=== PATIENT | female | born 1975 | race African-American/Black ===

== ENCOUNTER → 2017-08-10 15:44 | Outpatient (REF) | payer BC, SELFPAY ==
--- NOTE | 2017-08-10 16:03 | XR_ITS ---
EXAM: XR lumbar spine 2-3V HISTORY: ITS.REASON: low back pain ORDERING PHYSICIAN: London Dotson PATIENT AGE: 42 years COMPARISON: None FINDINGS: Normal alignment. No fracture or dislocation. No lytic or blastic change. There is degenerative disc disease at L5-S1. Small endplate osteophytes are present at L4 and L5. Facet arthritic changes are present at L5-S1 IMPRESSION: Lumbar spondylosis with degenerative changes as described above. No acute finding
[2017-08-10 16:10] LABS: Basophils % 0.5 % (0.1-2.0); Eosinophils # 0.3 K/mm3 (0.0-0.4); Eosinophils % 3.4 % (0.1-12.0); Hematocrit 42.9 % (37.0-47.0); Lymphocytes # 3.1 K/mm3 (0.7-4.5); Lymphocytes % 41.9 K/mm3 (10-50); Mean Corpuscular HGB Conc 32.5 g/dL (31.8-35.4); Mean Corpuscular Volume 86.1 fl (81-99); Mean Platelet Volume 7.8 fl (7.4-10.4); Monocytes # 0.3 K/mm3 (0.1-1.0); Monocytes % 3.5 % (1.7-9.3); Neutrophils # 3.8 K/mm3 (1.8-7.8); Neutrophils % 50.6 % (37.0-80.0); Platelet Count 341 K/mm3 (142-424); Red Blood Count 4.99 M/mm3 (4.20-5.40); Red Cell Distribution Width 14.6 % (11.5-17.5); White Blood Count 7.4 K/mm3 (4.8-10.8)
[2017-08-10 18:32] LABS: Alanine Aminotransferase 22 U/L (12-78); Alkaline Phosphatase 150 U/L (46-116); Anion Gap 14.4 mEq/L (5-15); Aspartate Amino Transferase 16 U/L (15-37); Bilirubin,Total 0.3 mg/dL (0.2-1.0); Blood Urea Nitrogen 9 mg/dL (7-18); Calcium 10.4 mg/dL (8.5-10.1); Carbon Dioxide 27 mmol/L (21.0-32.0); Chloride 108 mmol/L (98-107); Cholesterol 177 mg/dL (140-200); Estimated Glomerular Filt Rate 79 ml/min (>60); GFR (African American) 95 ML/MIN (>60); Globulin 3.9 gm/dl (1.3-3.2); Glucose 95 mg/dL (74-106); HDL Cholesterol 60 mg/dL (29-89); LDL Cholesterol 101 mg/dL (0-130); Potassium 4.4 mmoL/L (3.5-5.1); Sodium 145 mmol/L (136-145); T4 (Thyroxine) 8.1 ug/dl (4.7-13.3); Thyroid Stimulating Hormone 2.22 uIU/ml (0.358-3.740); Total Protein,Serum 7.9 gm/dL (6.4-8.2); Triglycerides 79 mg/dL (30-200); VLDL Cholesterol 16 mg/dL (0-40)
[2017-08-10 21:38] LABS: Amphetamine/Metha Screen,Urine Negative ng/mL (<1000); Barbiturates Screen,Urine Negative ng/mL (<200); Benzodiazepines Screen,Urine Negative ng/mL (200); Cannabinoid Screen,Urine Negative ng/mL (<50); Cocaine Screen,Urine Negative ng/g (<300); Methadone Screen,Urine Negative ng/mL (<300); Opiate Screen,Urine Negative ng/mL (<300); Phencyclidine Screen,Urine Negative ng/mL (<25)
[2017-08-12 08:29] LABS: Hep A Ab, IgM Negative (Negative); Hepatitis B Core Antibody IgM Negative (Negative); Hepatitis B Surface Antigen Negative (Negative)
[2017-08-12 12:35] LABS: Hepatitis C Antibody <0.1 s/co ratio (0.0-0.9); Vitamin D 25 Hydroxy 35.3 ng/mL (30.0-100.0)
== END ==
LOC: LAB 15:44
PROVIDERS: PCP Nurse Practitioner Family; Visit Provider Nurse Practitioner Family
DX: R53.83 Other fatigue (principal); F41.9 Anxiety disorder, unspecified; Z79.899 Other long term (current) drug therapy
CPT/HCPCS: 36415; 72100; 80053; 80061; 80074; 80305; 82652; 84436; 84443; 85025

== ENCOUNTER → 2017-10-21 13:57 | Outpatient (CLI) | payer BC, SELFPAY ==
--- NOTE | 2017-10-21 14:01 | XR_ITS ---
EXAM: XR cervical spine 4V HISTORY: ITS.REASON: Neck pain ORDERING PHYSICIAN: KISHORE Navarro PATIENT AGE: 42 years FINDINGS: Straightening of cervical lordosis which may be due to patient positioning or muscle spasm. There is mild degenerative disc disease at C5-C6 C6-C7 and C7-T1 with small endplate osteophytes at C5-6 and C6-C7. No foraminal narrowing. No evidence of cervical ribs. No lytic or blastic change. No fracture or dislocation. Carotid calcifications are present on the left. IMPRESSION: Cervical spondylosis with degenerative disc disease and straightening of cervical lordosis with small endplate osteophytes
--- NOTE | 2017-10-21 14:01 | XR_ITS ---
XR knee RT 4V HISTORY: Knee pain ITS.REASON: Bilateral knee pain ORDERING PHYSICIAN: KISHORE Navarro PATIENT AGE: 42 years FINDINGS: Mild osteoarthritic changes involve all 3 compartments with decrease in the joint space. There is mild osteophyte formation along the lateral compartment and at the posterior patella. Excessively center of ossification noted at the tibial tuberosity. No fracture or dislocation. No lytic or blastic change. IMPRESSION: Mild osteoarthritis of the right knee
--- NOTE | 2017-10-21 14:01 | XR_ITS ---
EXAM: XR lumbar spine min 4V HISTORY: ITS.REASON: Low back pain ORDERING PHYSICIAN: KISHORE Navarro PATIENT AGE: 42 years COMPARISON: 08/10/2017 FINDINGS: Normal alignment. No fracture or dislocation. Small osteophytes once again noted of the endplates. Mild degenerative disc disease L4-L5 with mild facet arthritic changes at L5-S1. IMPRESSION: Overall no change lumbar spondylosis mild degenerative disc disease and facet arthritic change at L5-S1 and small endplate osteophytes
--- NOTE | 2017-10-21 14:01 | XR_ITS ---
XR knee LT 4V HISTORY: Left knee pain ITS.REASON: Bilateral knee pain ORDERING PHYSICIAN: KISHORE Navarro PATIENT AGE: 42 years FINDINGS: There is slight decrease in the knee joint space medially and laterally and at the lateral aspect of the patellofemoral joint. No fracture or dislocation. No lytic or blastic changes. IMPRESSION: Slight decrease in the knee joint spaces suggesting minimal osteoarthritis.
--- NOTE | 2017-10-21 14:01 | XR_ITS ---
XR knee standing BI HISTORY: ITS.REASON: Bilateral knee pain ORDERING PHYSICIAN: KISHORE Navarro PATIENT AGE: 42 years FINDINGS: Standing views of both knees show moderate decrease in the joint space medially on the left as well as mild decrease in both the medial and lateral joint space on the right. IMPRESSION: 1. Mild osteoarthritis of the right knee and minimal osteoarthritic change of the medial compartment of the left knee
== END ==
PROVIDERS: PCP Physician Assistant; Visit Provider Physician Assistant
DX: M54.5 Low back pain (principal); M54.2 Cervicalgia; M25.561 Pain in right knee; M25.562 Pain in left knee
CPT/HCPCS: 72050; 72110; 73564; 73565

== ENCOUNTER 2017-10-28 15:04 | Outpatient (RCR) | payer BC, SELFPAY ==
--- NOTE | 2017-10-28 16:21 | HMH.PTOPEV ---
Rehab Outpatient Evaluation Rehab OP Evaluation Start: 10/28/17 15:39 Freq: Status: Active Protocol: Document 10/28/17 15:39 BILLJOSÉ MIGUEL (Rec: 10/28/17 15:52 DWAYNE [id number]) Electronically Signed By Joe Duarte, PT 10/28/17 15:39 Outpatient Therapy Subjective History Subjective History Patient is a 42 female presenting to outpatient PT with reports of chronic cervical spine and lumbar spine pain starting approximately 10 years ago. Patient also reports chronic bilateral shoulder and knee pain. Patient reports that she was diagnosed with firbromyalgia in 2006. Hx of bilateral knee pain/ meniscectomy. Most recent diagnostics indicate cervial/ lumbar spondylosis/OA. Chief Complaint Pain Spasms Stiff Symptom Type Ache Sharp Symptoms Relieved By Rest/Positioning Heat OTC Meds Prescription Meds Symptoms Aggravated By Sitting Standing Bending/Stooping Physical Activity Walking Lifting Prior Functional Limitations None Current Functional Limitations Reaching Lifting Housework Sleeping Standing Sitting Squatting Recreation Activity Walking Stairs Bending/Stooping Symptom Description Constant but Variable Level of pain today (0-10) 5 Pain scale - at its best (0-10) 9 Pain scale - at its worst (0-10) 5 Cervical Eval Palpation Cervical Muscles R Cervical Paraspinal L Cervical Paraspinal R Upper Trapezius L Upper Trapezius Cervical/Thoracic Palpation Findings Tenderness Flexibility Deficits Upper Trapezius Muscle Length (R) Moderate Tightness (L) Moderat
== END 2017-10-28 15:05 | disposition home or self-care (01) ==
LOC: PT 15:04
PROVIDERS: PCP Physician Assistant; Visit Provider Physician Assistant
DX: M54.2 Cervicalgia (principal); M54.9 Dorsalgia, unspecified
CPT/HCPCS: 97163

== ENCOUNTER → 2017-11-11 09:59 | Outpatient (CLI) | payer BC, SELFPAY ==
--- NOTE | 2017-11-11 10:01 | FL_ITS ---
EXAM: Barium swallow/esophagram. INDICATION: GE reflux, heartburn ITS.REASON: reflux ORDERING PHYSICIAN: Haim Pagan MD PATIENT AGE: 42 years TECHNIQUE: In the upright position the patient was observed to swallow barium in both the AP and lateral view. The cervical esophagus was examined under fluoroscopy with images obtained. The patient was then placed prone in the right anterior oblique position and was observed to swallow barium with Valsalva technique . FLUOROSCOPY TIME: 1 minute and 6 seconds FINDINGS: There was no evidence of aspiration. There was normal peristalsis. No filling defects or mucosal abnormalities. No masses or strictures. There is a small sliding hiatal hernia. No erosive lesions are evident. IMPRESSION: Small hiatal hernia otherwise negative barium swallow
== END ==
PROVIDERS: PCP Physician Assistant; Visit Provider Surgery
DX: K21.9 Gastro-esophageal reflux disease without esophagitis (principal)
CPT/HCPCS: 74220

== ENCOUNTER → 2017-11-23 12:54 | Outpatient (CLI) | payer BC, SELFPAY ==
--- NOTE | 2017-11-23 12:55 | MR_ITS ---
MR knee RT wo con HISTORY: Right knee pain and swelling with limited range of motion ITS.REASON: meniscal injury ORDERING PHYSICIAN: Orestes Castaneda MD PATIENT AGE: 42 years Comparison: 10/21/2017 TECHNIQUE: Standard multiplanar multiecho sequences are performed without contrast. FINDINGS: Cruciate ligaments, collateral ligaments, patellar tendon, and quadriceps tendon have an unremarkable appearance. The medial meniscus has an unremarkable appearance as does the posterior horn of the lateral meniscus. The anterior horn of the lateral meniscus has an abnormal appearance smaller than expected flattened appearance and may be related to chronic maceration/tear versus prior surgery. The patellar cartilage is preserved. There is a small knee joint effusion in the suprapatellar region laterally. There are mild osteoarthritic changes of the patellofemoral joint with spurring of the patella superiorly and laterally. Osteoarthritic changes also involve the medial lateral compartment with decrease in joint space and osteophyte formation. This is more prominent involving the lateral compartment. Small amount of pretibial edema is noted anterior to the patellar tendon and proximal tibia. No fracture or dislocation. IMPRESSION: 1. Abnormal appearance of the anterior horn of the lateral meniscus and may be related to chronic tear/maceration or postsurgical change. 2. Osteoarthritic changes involving all 3 compartments greatest at the lateral compartment. 3. Small knee joint effusion
== END ==
PROVIDERS: PCP Physician Assistant; Visit Provider Orthopaedic Surgery
DX: S83.241A Other tear of medial meniscus, current injury, right knee, initial encounter (principal)
CPT/HCPCS: 73721

== ENCOUNTER → 2017-11-25 10:34 | Outpatient (CLI) | payer BC, SELFPAY | PROVIDERS: Visit Provider Podiatrist | DX: B35.1 Tinea unguium (principal) | CPT/HCPCS: 87102; 87206; 87220 ==

== ENCOUNTER → 2018-07-07 13:32 | Outpatient (CLI) | payer BC, SELFPAY ==
--- NOTE | 2018-07-07 13:36 | XR_ITS ---
XR shoulder RT min 2V HISTORY: ITS.REASON: Bilateral shoulder pain ORDERING PHYSICIAN: KISHORE Navarro PATIENT AGE: 42 years Comparison: None FINDINGS: No fracture or dislocation. No lytic or blastic change. There is normal mineralization. There are mild hypertrophic changes of the acromioclavicular joint superiorly. No subacromial stenosis evident. Minimal hypertrophy of the greater tuberosity of the humeral head with faint lucency at the base of the greater tuberosity. These findings be seen with rotator cuff disease. May be better evaluated with MRI if clinically warranted. IMPRESSION: 1. No acute fracture. 2. Mild hypertrophic change of the AC joint. 3. Minimal hypertrophy of the greater tuberosity was small subarticular cyst at the base of the greater tuberosity
--- NOTE | 2018-07-07 13:36 | XR_ITS ---
EXAM: XR cervical spine 4V HISTORY: ITS.REASON: bilateral shoulder pain ORDERING PHYSICIAN: KISHORE Navarro PATIENT AGE: 42 years COMPARISON: None FINDINGS: There is straightening of the cervical lordosis. This is nonspecific and could be seen with muscle spasm. There is 3 mm anterolisthesis of C3 on C4. Increase in the disc space at C5-C6 C6-C7 and C7-T1. There are H or osteophyte at C5-6 and C6-C7. No fracture or dislocation. No lytic or blastic change. The foramina are widely patent. No cervical rib. Carotid artery calcifications are present on the left. IMPRESSION: 1. Cervical spondylosis as described above with degenerative disc disease and straightening of the cervical lordosis. 2. Left-sided carotid artery calcification
--- NOTE | 2018-07-07 13:36 | XR_ITS ---
XR shoulder LT min 2V HISTORY: ITS.REASON: Bilateral shoulder pain ORDERING PHYSICIAN: KISHORE Navarro PATIENT AGE: 42 years Comparison: None FINDINGS: No fracture or dislocation. No lytic or blastic change. There is normal mineralization. Mild bony spurring is present at the acromioclavicular joint superiorly. There is some increased density in the left perihilar region and left lower lobe incompletely imaged. Chest x-ray may be of further value. IMPRESSION: 1. Mild osteoarthritic change of the acromioclavicular joint without subacromial stenosis. 2. Increased density left perihilar region and left lower lobe nonspecific and incompletely imaged
== END ==
PROVIDERS: PCP Physician Assistant; Visit Provider Physician Assistant
DX: M25.511 Pain in right shoulder (principal); M25.512 Pain in left shoulder
CPT/HCPCS: 72050; 73030

== ENCOUNTER → 2018-07-21 14:58 | Outpatient (CLI) | payer BC, SELFPAY ==
--- NOTE | 2018-07-21 15:00 | CI_ITS ---
Cerebrovascular Exam Indications: 785.9 Bruit. IMPRESSIONS 1. The bilateral vertebral arteries are patent with normal antegrade flow. 2. Study suggests less than 20% stenosis involving the right internal carotid artery and the left internal carotid artery. History: Risk factors: Current tobacco use. Carotid duplex study. Complete study and Doppler flow study including spectral analysis, color and escalante scale imaging. Height: Height: 160cm. Height: 63in. Weight: Weight: 109.3kg. Weight: 240.5lb. Body mass index: BMI: 42.7kg/m^2. Body surface area: BSA: 2.27m^2. Location: Vascular laboratory. Patient status: Outpatient. Tables: Arterial flow: + +--------+--------+ Location V sys V ed + +--------+--------+ Right CCA - proximal 123cm/s 24.4cm/s + +--------+--------+ Right CCA - distal 74.2cm/s 27cm/s + +--------+--------+ Right ECA 130cm/s -------- + +--------+--------+ Right ICA - proximal 86.1cm/s 29.5cm/s + +--------+--------+ Right ICA - mid 106cm/s 45.9cm/s + +--------+--------+ Right ICA - distal 109cm/s 59.1cm/s + +--------+--------+ Right vertebral 57.8cm/s 40.9cm/s + +--------+--------+ Left CCA - proximal 103cm/s 28.9cm/s + +--------+--------+ Left CCA - distal 73.5cm/s 29.5cm/s + +--------+--------+ Left ECA 71cm/s -------- + +--------+--------+ Left ICA - proximal 118cm/s 48.4cm/s + +--------+--------+ Left ICA - mid 94.4cm/s 42.9cm/s + +--------+--------+ Left ICA - distal 86.8cm/s 37cm/s + +--------+--------+ Left vertebral 57.8cm/s -------- + +--------+--------+ Velocity ratios: + + + + + + Right, V sys Right, V ed Left, V sys Left, V ed + + + + + + Max ICA/dist CCA 1.47 2.19 1.61 1.64 + + + + + + (Report amended ) Electronically signed by: Ferdinand Olvera [id number]
--- NOTE | 2018-07-21 15:04 | XR_ITS ---
XR chest 2V HISTORY: Follow-up abnormal shoulder x-ray ITS.REASON: lll density seen on shoulder x-ray ORDERING PHYSICIAN: KISHORE Navarro PATIENT AGE: 42 years COMPARISON: 07/07/2018 FINDINGS: The cardiomediastinal silhouette and pulmonary vascularity are within normal limits. The lungs are clear without infiltrates, suspicious nodules, or pleural effusions. There are some minimal fibrotic or atelectatic changes in the lower lobes. Previously noted density in the left midlung is no longer apparent and could be due to an area of atelectasis or infiltrate. No acute bony abnormalities. IMPRESSION: Minimal atelectatic or fibrotic changes in the lung bases otherwise negative
== END ==
PROVIDERS: PCP Physician Assistant; Visit Provider Physician Assistant
DX: I65.22 Occlusion and stenosis of left carotid artery (principal); R53.83 Other fatigue
CPT/HCPCS: 71046; 93880

== ENCOUNTER → 2018-08-04 14:14 | Outpatient (CLI) | payer BC, SELFPAY ==
--- NOTE | 2018-08-04 14:15 | MR_ITS ---
MR cervical spine wo con, MR 3-d myelogram/MRCP HISTORY: Severe neck pain, degenerative disc disease. ITS.REASON: ddd ORDERING PHYSICIAN: KISHORE Navarro PATIENT AGE: 43 years Comparison: X-Ray 07/21/18 TECHNIQUE: Standard multiplanar multiecho sequences are performed without contrast. 3-D MIP and myelographic images are also rendered and reviewed FINDINGS: The craniocervical junction has an unremarkable appearance. There is straightening of the cervical lordosis which could be due to patient positioning or muscle spasm. C2-C3: Unremarkable. C3-C4: Unremarkable. C4-C5: Unremarkable. C5-C6: Degenerative disc disease with minimal bulging disc slightly eccentric toward the left. There is mild narrowing of the canal at 10 mm but no cord impingement. There are anterior osteophytes at this level C6-C7: Degenerative disc disease with mild concentric bulging disc. Small anterior osteophytes noted C7-T1: Unremarkable No herniated disc evident. IMPRESSION: 1. Mild degenerative disc disease with minimal bulging disc at C5-C6 and C6-C7 with mild narrowing of the canal at C5-C6. 2. No disc herniation or cord impingement evident. 3. Straightening of cervical lordosis which could be due to patient positioning or muscle spasm
== END ==
PROVIDERS: PCP Physician Assistant; Visit Provider Physician Assistant
DX: M47.812 Spondylosis without myelopathy or radiculopathy, cervical region (principal); M50.30 Other cervical disc degeneration, unspecified cervical region
CPT/HCPCS: 72141; 76376

== ENCOUNTER → 2018-09-14 16:44 | Outpatient (CLI) | payer BC, SELFPAY ==
[2018-09-14 18:25] LABS: Amphetamine/Metha Screen,Urine Negative ng/mL (<1000); Barbiturates Screen,Urine Negative ng/mL (<200); Benzodiazepines Screen,Urine Negative ng/mL (<200); Cannabinoid Screen,Urine Negative ng/mL (<50); Cocaine Screen,Urine Negative ng/mL (<300); Methadone Screen,Urine Negative ng/mL (<300); Opiate Screen,Urine Positive ng/mL (<300); Phencyclidine Screen,Urine Positive ng/mL (<25)
== END ==
PROVIDERS: Visit Provider Physician Assistant
DX: F41.9 Anxiety disorder, unspecified (principal)
CPT/HCPCS: 80305

== ENCOUNTER 2018-09-22 16:30 | Outpatient (RCR) | payer BC, SELFPAY | END 2018-09-22 16:35 | disposition home or self-care (01) | LOC: PT 16:30 | PROVIDERS: Visit Provider Anesthesiology Pain Medicine | DX: M47.816 Spondylosis without myelopathy or radiculopathy, lumbar region (principal); G89.4 Chronic pain syndrome | CPT/HCPCS: 97010; 97014; 97110; 97163; G0283 ==

== ENCOUNTER → 2018-12-01 11:35 | Outpatient (CLI) | payer BC, SELFPAY ==
--- NOTE | 2018-12-01 11:50 | XR_ITS ---
XR chest 2V HISTORY: Smoker, tobacco use ITS.REASON: 2 views ORDERING PHYSICIAN: Kiesha Brown MD PATIENT AGE: 43 years COMPARISON: 07/21/2018 FINDINGS: The cardiomediastinal silhouette and pulmonary vascularity are within normal limits. There are mild atelectatic or fibrotic changes in the left lung base. Remaining lungs are clear.. No acute bony abnormalities. IMPRESSION: Atelectatic or fibrotic change in the lingula otherwise negative
[2018-12-01 12:04] LABS: Basophils % 0.5 % (0.1-2.0); Eosinophils # 0.2 K/mm3 (0.0-0.4); Eosinophils % 3.3 % (0.1-12.0); Hematocrit 41.6 % (37.0-47.0); Hemoglobin 13.7 g/dL (12.2-16.2); Lymphocytes # 2.8 K/mm3 (0.7-4.5); Lymphocytes % 39.4 % (10-50); Mean Corpuscular HGB Conc 32.9 g/dL (31.8-35.4); Mean Corpuscular Hemoglobin 28.1 pg (27.0-31.2); Mean Corpuscular Volume 85.5 fl (81-99); Mean Platelet Volume 7.1 fl (7.4-10.4); Monocytes # 0.2 K/mm3 (0.1-1.0); Monocytes % 2.2 % (1.7-9.3); Neutrophils # 3.9 K/mm3 (1.8-7.8); Neutrophils % 54.6 % (37.0-80.0); Platelet Count 458 K/mm3 (142-424); Red Blood Count 4.86 M/mm3 (4.20-5.40); Red Cell Distribution Width 16.2 % (11.5-17.5); White Blood Count 7.2 K/mm3 (4.8-10.8)
[2018-12-01 12:10] LABS: Urine Pregnancy, HCG Qual. Negative (Negative)
[2018-12-01 12:29] LABS: Alanine Aminotransferase 30 U/L (12-78); Albumin Level 3.9 gm/dL (3.4-5.0); Albumin/Globulin Ratio 0.9 (1.1-1.8); Alkaline Phosphatase 150 U/L (46-116); Anion Gap 13.6 mEq/L (5-15); Aspartate Amino Transferase 19 U/L (15-37); Bilirubin,Total 0.4 mg/dL (0.2-1.0); Blood Urea Nitrogen 20 mg/dL (7-18); Calcium 11.1 mg/dL (8.5-10.1); Carbon Dioxide 24 mmol/L (21.0-32.0); Chloride 104 mmol/L (98-107); Creatinine,Serum 1.19 mg/dL (0.55-1.02); Estimated Glomerular Filt Rate 50 ml/min (>60); GFR (African American) 60 ML/MIN (>60); Globulin 4.2 gm/dl (1.3-3.2); Potassium 4.6 mmoL/L (3.5-5.1); Sodium 137 mmol/L (136-145); Total Protein,Serum 8.1 gm/dL (6.4-8.2)
[2018-12-01 12:44] LABS: Glucose 103 mg/dL (74-106)
== END ==
PROVIDERS: Visit Provider Orthopaedic Surgery
DX: Z01.818 Encounter for other preprocedural examination (principal)
CPT/HCPCS: 36415; 71046; 80053; 81025; 85025

== ENCOUNTER → 2018-12-09 15:06 | Outpatient (CLI) | payer BC, SELFPAY ==
--- NOTE | 2018-12-09 15:08 | XR_ITS ---
XR wrist RT min 3V HISTORY follow-up fracture ITS.REASON: 2 views ORDERING PHYSICIAN: Kiesha Brown MD PATIENT AGE: 43 years Comparison: 12/02/2018 FINDINGS: Status post ORIF distal radial fracture. Anterior bone plate remains in place with good alignment of the comminuted fracture fragments. There is an avulsion fracture of the tip of the ulnar styloid. Fracture lines are still visible. IMPRESSION: Good alignment status post ORIF distal radial fracture
== END ==
PROVIDERS: PCP Physician Assistant; Visit Provider Orthopaedic Surgery
DX: Z09 Encounter for follow-up examination after completed treatment for conditions other than malignant neoplasm (principal)
CPT/HCPCS: 73110

== ENCOUNTER → 2018-12-30 14:21 | Outpatient (CLI) | payer BC, SELFPAY ==
--- NOTE | 2018-12-30 14:27 | XR_ITS ---
XR wrist RT min 3V CLINICAL INDICATION: ITS.REASON: post op DOS 12/02 ORDERING PHYSICIAN: Kiesha Brown MD PATIENT AGE: 43 years Comparison: 12/09/2018. FINDINGS: The appearance of the radial orthopedic hardware in the appearance of the distal radial fracture site is unchanged. There is no abnormal angulation. Again seen is the avulsed ulnar styloid fracture fragment. IMPRESSION: No change.
== END ==
PROVIDERS: PCP Emergency Medicine; Visit Provider Orthopaedic Surgery
DX: S52.501A Unspecified fracture of the lower end of right radius, initial encounter for closed fracture (principal)
CPT/HCPCS: 73110

== ENCOUNTER → 2019-01-16 14:06 | Outpatient (CLI) | payer BC, SELFPAY ==
--- NOTE | 2019-01-16 14:12 | XR_ITS ---
XR wrist RT min 3V HISTORY follow-up fracture ITS.REASON: DR fracture Rt ORDERING PHYSICIAN: Kiesha Brown MD PATIENT AGE: 43 years Comparison: 12/30/2018 FINDINGS: No change status post ORIF distal radial fracture with bone plate present anteriorly with good alignment. Fracture line remains visible. No change ulnar styloid avulsion. IMPRESSION: No significant change status post ORIF distal radius
== END ==
PROVIDERS: PCP Physician Assistant; Visit Provider Orthopaedic Surgery
DX: S52.501A Unspecified fracture of the lower end of right radius, initial encounter for closed fracture (principal)
CPT/HCPCS: 73110

== ENCOUNTER 2019-02-02 15:30 | Outpatient (RCR) | payer BC, SELFPAY | END 2019-02-02 15:45 | disposition home or self-care (01) | LOC: OT 15:30 | PROVIDERS: Visit Provider Orthopaedic Surgery | DX: S52.501A Unspecified fracture of the lower end of right radius, initial encounter for closed fracture (principal) | CPT/HCPCS: 97763 ==

== ENCOUNTER → 2019-02-13 14:06 | Outpatient (CLI) | payer BC, SELFPAY ==
--- NOTE | 2019-02-13 14:08 | XR_ITS ---
XR wrist RT min 3V HISTORY follow-up surgery/ORIF ITS.REASON: s/p wrist ORIF ORDERING PHYSICIAN: Kiesha Brown MD PATIENT AGE: 43 years Comparison: 01/16/2019 FINDINGS: Status post ORIF distal radius with anterior bone plate with multiple screws stabilizing the distal radial fracture which is in good alignment. Avulsion fractures its tip of the ulnar styloid once again noted. IMPRESSION: Good alignment status post ORIF distal radius
== END ==
PROVIDERS: PCP Physician Assistant; Visit Provider Orthopaedic Surgery
DX: S52.501A Unspecified fracture of the lower end of right radius, initial encounter for closed fracture (principal)
CPT/HCPCS: 73110

== ENCOUNTER → 2019-03-17 12:42 | Outpatient (CLI) | payer BC, SELFPAY ==
--- NOTE | 2019-03-17 12:44 | XR_ITS ---
PROCEDURE: XR KNEE RT 4V CLINICAL INDICATION: knee pain COMPARISON: [id number] XR knee standing BI from 10/21/2017 [id number] XR knee LT 4V from 10/21/2017 [id number] XR knee RT 4V from 10/21/2017 FINDINGS: No fracture or dislocation. No lytic or blastic change. There is normal mineralization. Moderate osteoarthritic changes are present at the lateral compartment probably unchanged given the difference in positioning. Minimal osteoarthritic changes present at the patellofemoral joint and medial compartment. No fracture or dislocation. Ununited ossification centers present at the tibial tuberosity IMPRESSION: Osteoarthritic changes of the knee as described Dictated by: Ferdinand Olvera MD 03/17/2019 15:14 Electronically signed by Ferdinand Olvera MD in [place] 03/17/2019 15:14
--- NOTE | 2019-03-17 12:44 | XR_ITS ---
PROCEDURE: XR WRIST RT MIN 3V CLINICAL INDICATION: wrist fracture Follow-up fracture/ORIF COMPARISON: Wrist R from 11/25/2018 from 02/13/2019 FINDINGS: No change in the volar bone plate with multiple screws stabilizing the distal radial fracture with good alignment. Fracture line is still visible. Avulsion fracture at the tip of the ulnar styloid once again noted. IMPRESSION: No change status post ORIF distal radial fracture with good alignment Dictated by: Ferdniand Olvera MD 03/17/2019 15:11 Electronically signed by Ferdinand Olvera MD in [place] 03/17/2019 15:11
== END ==
PROVIDERS: PCP Physician Assistant; Visit Provider Orthopaedic Surgery
DX: M25.561 Pain in right knee (principal); S52.501A Unspecified fracture of the lower end of right radius, initial encounter for closed fracture
CPT/HCPCS: 73110; 73564

== ENCOUNTER 2019-04-27 16:30 | Outpatient (RCR) | payer BC, SELFPAY ==
--- NOTE | 2019-03-20 17:08 | HMH.PTOPEV ---
PT Outpatient Evaluation Rehab PT Outpatient Evaluation Start: 03/20/19 16:00 Freq: Status: Active Protocol: Document 03/20/19 16:32 ALONSOJUDITH (Rec: 03/20/19 17:07 LAURA [id number]) Electronically Signed By Adi Corona PT 03/20/19 16:32 Outpatient Therapy Subjective History Subjective History 43 year old female pt. is referred to PT for R knee pn due to OA. Pt. reports that pn . has been occurring for several years now but it was not that bothersome. About 2 years ago her pn. begain to get worse. Pn. is at its worst during prolonged WB activities such as walking, standing, etc. and during prolonged knee flexion. Pt. has history of Diogenes meniscal injuries. Chief Complaint Pain Symptom Type Ache,Throb,Sharp Symptoms Relieved By Rest/Positioning,Heat Symptoms Aggravated By Standing,Bending/Stooping, Physical Activity,Walking, Lifting Prior Functional Limitations None Current Functional Limitations Lifting,Housework,Driving, Standing,Squatting,Recreation Activity,Walking,Stairs, Bending/Stooping Symptom Description Constant but Variable Level of pain today (0-10) 3 Pain scale - at its best (0-10) 2 Pain scale - at its worst (0-10) 7 Hip/Knee Eval Gait Observation General Gait Pattern Observation Ataxic Gait,Decrease Weight Bear (R),Decrease Stride Lngth (R) Assistive Device Assistive Devices Straight Cane Palpation Tenderness right Knee Palpation Finding Tenderness Knee Palpation Overall Comment TTP over lateral and posterior aspect of knee MMT left Hip Flexion Strength Grade 5 Normal Hip Abduction Strength Grade 5 Normal Hip Adduction Strength Grade 5 Normal Hip Extension Strength Grade 5 Normal Hip External Rotation Strength Grade 4 Good Hip Internal Rotation Strength Grade 4 Good Knee Extension Strength Grade 5 Normal Knee Flexion Strength Grade 5 Normal right Hip Flexion Strength Grade 3+ Fair+ Hip Abduction Strength Grade 4- Good- Hip Adduction Strength Grade 4 Good Hip Extension Strength Grade 4- Good- Hip External Rotation Strength Grade 4- Good- Hip Internal Rotation Strength G
== END 2019-04-27 16:35 | disposition home or self-care (01) ==
LOC: PT 16:30
PROVIDERS: Visit Provider Orthopaedic Surgery
DX: M17.11 Unilateral primary osteoarthritis, right knee (principal)
CPT/HCPCS: 97110; 97163; 97164

== ENCOUNTER → 2019-05-15 15:18 | Outpatient (CLI) | payer BC, SELFPAY ==
--- NOTE | 2019-05-15 15:22 | XR_ITS ---
PROCEDURE: XR CHEST 2V CLINICAL HISTORY: COPD,HTN COMPARISON: CXR2V XR chest 2V from 07/21/2018 FINDINGS: The cardiomediastinal silhouette and pulmonary vascularity are within normal limits. Minimal fibrotic changes present in the left lung base. No lobar consolidation or collapse. No acute bony abnormalities. IMPRESSION: Minimal fibrotic change left lung base. No change with no acute finding Dictated by: Ferdinand Olvera MD 05/15/2019 15:58 Electronically signed by Ferdinand Olvera MD in [place] 05/15/2019 15:58
--- NOTE | 2019-05-15 16:23 | ECG_ITS ---
APPROVED REPORT Exam: Resting ECG HR:95 bpm ECG Measurements Heart Rate 95 AXES NJ 182 P 52 QRSd 80 QRS -11 QT 364 T 38 QTc 457 <Conclusion> Normal sinus rhythm Low voltage QRS Borderline ECG Electronically signed by : Moe Joyce, 05/16/2019 15:27:02
[2019-05-15 16:31] LABS: INR 0.91 (0.9-1.1); Prothrombin Time 9.5 seconds (9.4-11.8)
[2019-05-15 16:34] LABS: Urine Pregnancy, HCG Qual. Negative (Negative)
[2019-05-15 16:40] LABS: Basophils % 0.6 % (0.1-2.0); Eosinophils # 0.4 K/mm3 (0.0-0.4); Eosinophils % 6.2 % (0.1-12.0); Hematocrit 37.9 % (37.0-47.0); Lymphocytes # 2.9 K/mm3 (0.7-4.5); Lymphocytes % 44.6 % (10-50); Mean Corpuscular HGB Conc 31.7 g/dL (31.8-35.4); Mean Corpuscular Hemoglobin 28.4 pg (27.0-31.2); Mean Corpuscular Volume 89.7 fl (81-99); Mean Platelet Volume 7.9 fl (7.4-10.4); Monocytes # 0.3 K/mm3 (0.1-1.0); Monocytes % 4.8 % (1.7-9.3); Neutrophils # 2.8 K/mm3 (1.8-7.8); Neutrophils % 43.8 % (37.0-80.0); Platelet Count 412 K/mm3 (142-424); Red Blood Count 4.23 M/mm3 (4.20-5.40); Red Cell Distribution Width 15.6 % (11.5-17.5); White Blood Count 6.5 K/mm3 (4.8-10.8)
[2019-05-15 18:43] LABS: Alanine Aminotransferase 29 U/L (12-78); Albumin Level 3.7 gm/dL (3.4-5.0); Alkaline Phosphatase 134 U/L (46-116); Aspartate Amino Transferase 18 U/L (15-37); Bilirubin,Total 0.1 mg/dL (0.2-1.0); Blood Urea Nitrogen 8 mg/dL (7-18); Calcium 10.6 mg/dL (8.5-10.1); Carbon Dioxide 26 mmol/L (21.0-32.0); Chloride 106 mmol/L (98-107); Creatinine,Serum 1.11 mg/dL (0.55-1.02); Estimated Glomerular Filt Rate 54 ml/min (>60); GFR (African American) 65 ML/MIN (>60); Globulin 3.8 gm/dl (1.3-3.2); Glucose 100 mg/dL (74-106); Sodium 140 mmol/L (136-145); Total Protein,Serum 7.5 gm/dL (6.4-8.2)
== END ==
PROVIDERS: PCP Physician Assistant; Visit Provider Orthopaedic Surgery
DX: M17.11 Unilateral primary osteoarthritis, right knee (principal)
CPT/HCPCS: 36415; 71046; 80053; 81025; 85025; 85610; 87081; 93005

== ENCOUNTER → 2019-05-20 10:28 | Outpatient (CLI) | payer BC, SELFPAY | PROVIDERS: Visit Provider Orthopaedic Surgery | DX: Z01.818 Encounter for other preprocedural examination (principal); M17.11 Unilateral primary osteoarthritis, right knee | CPT/HCPCS: 36415; 86850 ==

== ENCOUNTER 2019-05-23 06:08 | Inpatient (IN) ==
--- NOTE | 2019-05-23 06:58 | Progress Note ---
[facility] Anesthesia Checklist - Patient Identification Patient Identification: Arm Band, Verbal (Name & ) - Structural Data Admitted From: Home Planned Operative Procedure/s: Right TKA Consent for Planned Operative Procedure(s) Verified: Yes Verified Documents: Surgical Consent, History and Physical - NPO Status Verified Time NPO: 23:45 - Chart Verification Results Verified: CBC, BMP - Additional verifications Patient : No Anesthesia Reactions: Yes (Wakes up angry, hx PTSD) Hx Blood Transfusions: No Blood Transfusion Reaction: No - Airway Assessment C-Spine Mobility Assessed: Yes TMJ Mobility Assessed: Yes Dentition: Edentulous - Neurological Assessment Level of Consciousness: Awake, Alert, Appropriate, Follows Commands Hx Seizures: No Numbness or tingling in extremities: Yes - Anesthesia Plan Anesthesia Risk discussed: Yes Anesthesia Plan: Verified ASA Class: III Anesthesia Type: Spinal (with right ACB) [facility] History I have reviewed the patient's past medical history: Yes Medical History: Reports:: Anxiety, Chronic Obstructive Pulmonary Disease (COPD), Depression, Gastroesophageal Reflux Disease(GERD), Hiatal Hernia, MRSA (toe) Denies:: Cancer, Diabetes Mellitus Type 1, Diabetes Mellitus Type 2, Internal Pacemaker, Seizures *Have you ever received a pneumonia vaccine?: Yes *Have you received a flu vaccine this season?: Yes Other Medical History: Reports: Arthritis, Fibromyalgia, Other. Denies: Blood Transfusion Reaction Comment:: morbid obesity, TIARA does not use CPAP Anesthesia experience/problems:: Wakes up angry Laterality Cases: Bilateral: Arthroscopy Knee Other Surgeries: Yes: Cholecystectomy, Colonoscopy, EGD, Hysterectomy-Total, Tubal Ligation, Other. No: Pacemaker Amputation: No Fractures: Yes (aisha wrist) - *Social History Educational Level: Attended Grade School Smoking Status: Current every day smoker Tobacco Type: cigarettes # Packs/Day (cigarettes): 1 Alcohol Intake: never Alcohol Intake Frequency:: other Substance Use Type: denies use *Occupational Status:: unemployed Housing: apartment Household Members: spouse *Travel in the last 8 weeks: None - Psychiatric History Pschychiatric History:: Reports:: Anxiety, Depression Family Hx:: Diabetes
--- NOTE | 2019-05-23 12:15 | Progress Note ---
[facility] Anesthesia Record Part I Intake, IV Amount: 2,000 Estimated blood loss (mL): 100 Urine output (mL): 200 Blood Pressure: 98/67 SaO2: 95 Pulse Rate: 98 Respiratory Rate: 16 Temperature: 98.2 F Patient is:: Drowsy, Stable Stable to PACU at:: 12:15
--- NOTE | 2019-05-23 12:15 | Progress Note ---
[facility] Anesthesia Record Part II Discharge Time: 12:45 Destination: Medical Surgical Department PACU nurse assessment reviewed?: Yes Patient Condition:: Good Anesthesia Complications:: None Swallowing reflex intact?: Yes Cyanosis?: No
--- NOTE | 2019-05-23 12:52 | Operative Note ---
Date of procedure: 05/23/19 Pre-op Diagnosis:: R knee DJD Post-op Diagnosis:: R knee DJD Procedure performed:: R TKA (total knee arthroplasty) Surgeon:: Kiesha Brown MD Terminal Supervisor(s):: Malia Boles CONFECTIONERY DROPS MACHINE OPERATOR:: Hung Morataya Anesthesia: MAC, regional, spinal Estimated blood loss (mL): 100 Clinical Note:: 43yo F with a history of chronic R knee pain; she underwent prior arthroscopic surgery on this knee though the procedure and year are unknown. She has received multiple steroid and SALMERON injections in the knee over the years, none of which have been effective. Under my care, she has tried the following for her knee: ice, activity modification, NSAIDs, tylenol, intra-articular steroid injection, physical therapy. She is in pain management for her back and takes [place] at baseline as well. Offloader brace was ordered by myself, but this was not covered by insurance and the cost was very high so the patient elected not to buy it. She has a history of HTN, GERD, fibromyalgia, vitamin D deficiency, PTSD, chronic back pain with sciatica; NO history of DM. She has a history of MRSA infection in her left foot. Surgical history includes b/l knee arthroscopy, hysterectomy, ORIF b/l DRF, cholecystectomy. She is and lives with her ; she does not work. Their home is one level and she feels she has good support at home; transportation is often an issue, however. She is a smoker but denies alcohol use. BMI is 42.9; weight was measured in the office today. The steroid injection she received at her last visit with me on 03/17/2019 was ineffective; she would like to discuss surgical options for her knee. The patient has exhausted conservative treatment for knee arthritis, consisting of: ice, activity modification, NSAIDs, tylenol, intra-articular steroid injection, hyaluronic acid injections, OTC bracing, and physical therapy. The pain has become so severe that it is inhibiting her ability to perform ADLs and is adversely affecting her quality of life. Monica discussed surgical options with the patient and have recommended total knee arthroplasty. We discussed at length the surgical technique and expected perioperative course, including length of hospitalization, need for postoperative physical therapy, use of anticoagulants, expected level of pain, and total length of recovery. I discussed her increased risk for infection given a history of MRSA infection and recent CSI, and overall increased risk of livan-operative complication given her increased BMI. I also explained the potential risks of surgery, including bleeding, infection, fracture, wound healing complications, need for revision surgery, continued pain post-operatively, DVT/PE, and risks of both general and regional anesthesia, including nerve damage, heart attack, stroke and even . The patient vocalized understanding of these risks and has agreed to proceed with surgery; informed consent was obtained. She obtained medical clearance from her primary care physician. Operative findings:: Larios [employer] Nephew Journey II BCS TKA size 4 femur size 3 tibia 15mm poly 29 / 7.5 patella Operative note:: The patient was identified in pre-operative holding and the R leg signed by myself with marking pen. Consent was verified with the patient and all questions were answered. Pre-operative labs were confirmed to be within acceptable limits, and MRSA nasal swab negative; Bactroban was used 5 days before surgery anyway. She was then taken to the OR and placed supine on the operative table; 1g vancomycin and 2g Ancef were infused intravenously spinal anesthesia/MAC admnistered. Once the patient was asleep, a nonsterile tourniquet was placed on the upper R thigh and the leg was prepped and draped in the usual sterile fashion for knee arthroplasty. Timeout was performed, identifying the correct patient, correct procedure, and correct site. The procedure was begun by exsanguinating the R lower extremity with an Esmarch and inflating the tourniquet to 300 mmHg. A longitudinal incision was made down the anterior aspect of the R knee centered over the patella, extending from 2 fingerbreadths superior to the patella to the tibial tubercle. Subcutaneous tissue was incised down to the patellar retinaculum and limited medial and lateral flaps were raised. Medial parapatellar arthrotomy was then made and Bovie used to perform a moderate medial release. Next, the patella was everted and the knee flexed to around 100 degrees. Fat pad was excised and both medial and lateral menisci were excised as well. The ACL and PCL were then excised sharply. The joint was exposed with Aaron retractors medially and laterally. Next the entry reamer was used to find and create the starting point for the distal femoral cutting guide. Through this entry point, the intramedullary afia component of the distal femoral cutting guide was inserted and the cutting guide pinned into place, set at 6 degrees valgus. This cutting guide was pinned into place, the intramedullary afia removed, and oscillating saw used to create distal femoral cut, removing the standard 9 mm from the distal femur. The femoral component was sized using the sizing guide and a size 4 femur found to be the most appropriate component size. A size 4 right 5-in-1 cutting block was then placed on the distal femur, set in 3 degrees of external rotation. The saw was then used to make all 5 cuts in this cutting guide and all excised bone removed from the knee. Lamina spreaders were used to check the back of the knee for excess bone and none was found. A curved osteotome was used to perform a gentle posterior capsular release. Lamina product marketing coordinator was removed and femoral trial placed on the distal femur. This was seen to fit very well both medially laterally and no notching of the anterior femoral cortex was seen. The femoral notch was then cut with both reamer and box chisel and all excess debris removed from the notch. Attention was then turned to the tibia; the femoral trial was removed and PCL retractor was inserted and used to help expose the proximal tibia. Extramedullary cutting guide was used to determine the desired level resection for the proximal tibia. The decision was made to take 3 mm off the medial plateau, and the guide was pinned in this position. Oscillating saw was used to make the proximal tibial cut, which was then removed with a flat broad osteotome. A size 3 tibial component fit the patient's natural anatomy very well, with no overhang medially or laterally. The tibial component was pinned in place, and femoral trial replaced; the knee was reduced with a 9mm polyethylene trial. This was too loose and the poly was increased until a 15mm trial gave the best fit with a well-balanced knee in both flexion and extension. With the knee remaining in extension, the patella was then cut. The decision was made to use a 7.5mm thick patellar component. Next, the patella was cut to 14mm and pegs drilled for a 29 patellar component; 29 trial patella placed. The knee was then taken through range of motion and the patella appeared to be tracking very well. With this configuration of components, a 4 femur, 3 tibia, 15 poly and 29/7.5 patella, the knee appeared to be well balanced with excellent range of motion and was able to be brought to full extension. All components were then removed from the knee, except the tibia, which was given its final prep using reamer and keel punch. After the tibia was punched, it was removed from the knee as well, and the knee was placed into flexion, retractors placed and the knee copiously irrigated with pulsatile lavage. While the knee was irrigated, cement was mixed on the back table. While cement was curing, joint cocktail was injected into the posterior portion of the knee; this was a mixture of Toradol, epinephrine, morphine and bupivacaine, and approximately 30 cc were infused into the posterior capsule and surrounding structures. The bone was then dried well with clean laps and final components were then cemented into place. The tibia was impacted into place and excess cement removed. This was followed by the femoral component and the knee placed into extension with a trial polyethylene component. The patella was cemented into place as well and secured with patellar clamp. As these components were hardening, the knee was kept in extension and gentle downward pressure placed on the thigh to keep the knee extended. During this time the knee was treated with a dilute Betadine irrigation that soaked for 3 minutes. After the cement was hardened, Betadine was suctioned from the knee, which was then irrigated. Trial poly was removed from the knee, which was placed into flexion and the tourniquet was dropped. No active bleeding was seen in the posterior aspect of the knee. The knee was irrigated once more, and final 15 mm polyethylene component placed into the knee. The knee was then reduced and placed in extension. The remainder of the joint cocktail was then infiltrated into the periarticular tissues. The knee was copiously irrigated with more pulsatile lavage and closed in a layered fashion, starting with alternating 0 Ethibond and 0 Vicryl in the capsule. The capsule was sutured tightly with the knee in around 20 to 30 degrees flexion. Subcutaneous tissue was closed in a layered fashion as well, with 2-0 Vicryl on the deeper tissues and mo on the skin. Sterile dressings were applied and the leg wrapped with webril and Fernando wrap from the toes to the upper thigh. The patient was transferred to PACU in good condition. She did very well throughout this case with no immediate complications. Tourniquet time (min): 130 Condition: stable Disposition: PACU Specimens:: none Complications:: none
--- NOTE | 2019-05-23 13:55 | Pharmacy Consult Notes ---
[facility] Pharmacy VTE Monitoring - Patient Demographics Admission date: 05/23/19 Report Date: 05/23/19 Time: 13:54 Allergies/Adverse Reactions: Patient Allergies No Known Allergies Allergy (Verified 05/15/19 14:13) Height: 1.63 m Weight: 118.473 kg - VTE Risk Was VTE Risk Assessment Performed: Yes VTE Score: 9 VTE Risk Level: Moderate Risk - Prophylaxis VTE Prophylaxis Ordered?: Yes Types of VTE Prophylaxis: IPCS Thigh High, Pharmacological Location of Applied Device: Left Leg Pharmacologic Type: Enoxaparin - VTE Diagnosis Confirmed Treatment or plan recommended: Continue Current Treatment
--- NOTE | 2019-05-23 17:42 | History & Physical Report ---
*Admission Date: 05/23/19 *Reason for consult:: s/p R TKA *History of present illness: 43yo F with a history of chronic R knee pain; she underwent prior arthroscopic surgery on this knee though the procedure and year are unknown. She has received multiple steroid and SALMERON injections in the knee over the years, none of which have been effective. Under my care, she has tried the following for her knee: ice, activity modification, NSAIDs, tylenol, intra-articular steroid injection, physical therapy. She is in pain management for her back and takes [place] at baseline as well. Offloader brace was ordered by myself, but this was not covered by insurance and the cost was very high so the patient elected not to b uy it. She has a history of HTN, GERD, fibromyalgia, vitamin D deficiency, PTSD, chronic back pain with sciatica; NO history of DM. She has a history of MRSA infection in her left foot. Surgical history includes b/l knee arthroscopy, hysterectomy, ORIF b/l DRF, cholecystectomy. She is and lives with her ; she does not work. Their home is one level and she feels she has good support at home; transportation is often an issue, however. She is a smoker but denies alcohol use. BMI is 42.9; weight was measured in the office today. The steroid injection she received at her last visit with me on 03/17/2019 was ineffective; she would like to discuss surgical options for her knee. The patient has exhausted conservative treatment for knee arthritis, consisting of: ice, activity modification, NSAIDs, tylenol, intra-articular steroid injection, hyaluronic acid injections, OTC bracing, and physical therapy. The pain has become so severe that it is inhibiting her ability to perform ADLs and is adversely affecting her quality of life. Monica discussed surgical options with the patient and have recommended total knee arthroplasty. We discussed at length the surgical technique and expected perioperative course, including length of hospitalization, need for postoperative physical therapy, use of anticoagulants, expected level of pain, and total length of recovery. I discussed her increased risk for infection given a history of MRSA infection and recent CSI, and overall increased risk of livan-operative complication given her increased BMI. I also explained the potential risks of surgery, including bleeding, infection, fracture, wound healing complications, need for revision surgery, continued pain post-operatively, DVT/PE, and risks of both general and regional anesthesia, including nerve damage, heart attack, stroke and even . The patient vocalized understanding of these risks and has agreed to proceed with surgery; informed consent was obtained. She obtained medical clearance from her primary care physician. R TKA was performed today without complication. [facility] History I have reviewed the patient's past medical history: Yes Medical History: Reports:: Anxiety, Chronic Obstructive Pulmonary Disease (COPD), Depression, Gastroesophageal Reflux Disease(GERD), Hiatal Hernia, Lung Disease, MRSA (toe) Denies:: Cancer, Diabetes Mellitus Type 1, Diabetes Mellitus Type 2, Internal Pacemaker, Seizures *Have you ever received a pneumonia vaccine?: Yes *Have you received a flu vaccine this season?: Yes Other Medical History: Reports: Arthritis, Fibromyalgia, Other. Denies: Blood Transfusion Reaction Anesthesia experience/problems:: Wakes up angry Laterality Cases: Bilateral: Arthroscopy Knee Other Surgeries: Yes: No Previous Surgery, Cholecystectomy, Colonoscopy, EGD, Hysterectomy-Total, Tubal Ligation, Other. No: Pacemaker Amputation: No Fractures: Yes (aisha wrist) - *Social History Educational Level: Attended Grade School Smoking Status: Current every day smoker Tobacco Type: cigarettes # Packs/Day (cigarettes): 1 Alcohol Intake: never Alcohol Intake Frequency:: other Substance Use Type: denies use *Occupational Status:: unemployed Housing: apartment Household Members: spouse *Travel in the last 8 weeks: None - Psychiatric History Pschychiatric History:: Reports:: Anxiety, Depression Family Hx:: Diabetes Review of Systems - Review of Systems Review of systems:: pertinent systems reviewed and negative unless documented below Meds Home Medications Medication Instructions Recorded Confirmed Type budesonide-formoterol HFA 160 1 puff INHALATION DAILY #10 g 09/14/18 05/23/19 Rx mcg-4.5 mcg/actuation aerosol inhaler Meloxicam 15 mg PO DAILY 12/02/18 05/23/19 History omeprazole 20 mg tablet,delayed 20 mg PO BID #180 tab 03/07/19 05/23/19 Rx release ranitidine 150 mg tablet 150 mg PO BID #180 tab 03/07/19 05/23/19 Rx ondansetron 8 mg disintegrating 8 mg PO Q8H PRN #30 tab 05/05/19 05/23/19 Rx tablet alprazolam 0.5 mg tablet 0.5 mg PO BID #60 tab 05/08/19 05/23/19 Rx gabapentin 600 mg tablet 600 mg PO QID #120 tab 05/08/19 05/23/19 Rx cholecalciferol (vitamin D3) 5,000 5,000 unit PO DAILY #90 cap 05/15/19 05/23/19 Rx unit capsule Albuterol Sulfate [Ventolin HFA] 1 puff IH DAILY 05/23/19 05/23/19 History Lisinopril [Lisinopril 10mg Tab] 10 mg PO DAILY 05/23/19 05/23/19 History Quetiapine Fumarate 400 mg PO HS 05/23/19 05/23/19 History Quetiapine Fumarate [Seroquel 100 mg PO HS 05/23/19 05/23/19 History 100mg tablet] Allergies Allergy/AdvReac Type Severity Reaction Status Date / Time No Known Allergies Allergy Verified 05/15/19 14:13 Exam Vital signs and Labs for Last 24 Hours: Temp Pulse Resp BP Pulse Ox 98.3 F 107 H 18 141/77 H 97 05/23/19 16:35 05/23/19 16:35 05/23/19 16:35 05/23/19 16:35 05/23/19 16:35 Laboratory Results - last 24 hr 05/23/19 06:51: Serum HCG, Qual Negative 05/23/19 06:51: Blood Type AB Positive, Antibody Screen Negative 05/23/19 07:45: Urine Color Yellow, Urine Appearance Clear, Urine pH 6.0, Ur Specific [place] >= 1.030, Urine Protein Negative, Urine Glucose (UA) Negative, Urine Ketones Negative, Urine Blood Negative, Urine Nitrate Negative, Urine Bilirubin Negative, Urine Urobilinogen 0.2, Ur Leukocyte Esterase Negative, Urine WBC Occasional I & O for Last 24 hours: Intake & Output 05/21/19 05/22/19 05/23/19 05/24/19 11:59 11:59 11:59 11:59 Intake Total 1999 Balance 1999 Weight 250 lb 261 lb 3 oz - Constitutional no acute distress - *Routine HEENT Exam Head: Present: normocephalic - *Routine Neck Exam Present: supple. Absent: tenderness - *Routine Respiratory Exam Present: accessory muscle use - *Routine Cardiovascular Exam Present: RRR - *Routine Abdominal Exam Present: soft. Absent: tenderness - *Routine Rectal Exam Comments: deferred - *Routine Exam Comments: mcfarlane to gravity with clear yellow urine - *Routine Extremities Exam Comments: patient in PACU: RLE dressings c/d/i palpable pedal pulses RLE, foot warm R calf soft, non-tender sensation/motion impaired due to presence of nerve block - *Routine Skin Exam Present: warm - *Routine Neurological Exam Present: alert, oriented X3, moving all extremities, normal tone. Absent: altered mental status Results - Labs Labs: All other labs normal. Assessment and Plan (1) Arthritis of knee, degenerative Current visit: Yes Status: Acute Category: Medical Code(s): M17.10 - Unilateral primary osteoarthritis, unspecified knee (2) Total knee replacement status Current visit: Yes Status: Acute Category: Surgical Code(s): Z96.659 - Presence of unspecified artificial knee joint - Assessment and plan all Dx Assessment and Plan for all problems:: 43yo F POD 0 s/p R TKA -- admit to med/surg floor for routine post-op care -- restart home meds, Ifeoma Pate/Garrett on consult for medical management -- pain control; oral percocet + IV dilaudid for breakthrough -- polar care device L knee for cryotherapy -- WBAT RLE, PT/OT to eval -- DVT prophy: SCDs + lovenox (to start tomorrow) -- 24hr DVT prophy -- dispo planning: anticipate d/c home with OPPT
[2019-05-24 07:35] LABS: Basophils % 0.1 % (0.1-2.0); Eosinophils % 0.2 % (0.1-12.0); Hemoglobin 9.1 g/dL (12.2-16.2); Monocytes # 0.8 K/mm3 (0.1-1.0)
[2019-05-24 07:42] LABS: Hematocrit 28.9 % (37.0-47.0); Lymphocytes # 2.1 K/mm3 (0.7-4.5); Lymphocytes % 12.9 % (10-50); Mean Corpuscular HGB Conc 31.7 g/dL (31.8-35.4); Mean Corpuscular Volume 89.3 fl (81-99); Mean Platelet Volume 8.7 fl (7.4-10.4); Monocytes % 5.1 % (1.7-9.3); Neutrophils # 13.1 K/mm3 (1.8-7.8); Neutrophils % 81.6 % (37.0-80.0); Platelet Count 301 K/mm3 (142-424); Red Blood Count 3.23 M/mm3 (4.20-5.40); White Blood Count 16.1 K/mm3 (4.8-10.8)
[2019-05-24 07:43] LABS: Anion Gap 9.1 mEq/L (5-15); Calcium 9.5 mg/dL (8.5-10.1)
[2019-05-24 10:53] LABS: Anisocytosis 1+; Lymphocytes % 18 % (10-50); Monocytes % 2 % (2-9); Neutrophils % 79 % (42-76); Total Cells Counted 100
--- OUTSIDE RECORDS SUMMARY | 2019-05-24 11:56 | External Medical Summary | Continuity of Care Document ---
:1975 Author Organization [facility] Address [address] [address] E[place] [address] Phone Care Team Providers Name Role Phone Casey Pate Primary Care Provider Casey Pate Attending Provider Kevin Attending Provider Allergies, Adverse Reactions, Alerts No known allergies. Medications Medication Status Dose Units Route Sig Qty Days Start End Instruct ions Date Date Budesonide/Form Active 1 PUFF Inhalatio Daily 11 September oterol Fumarate n 2018 1:30pm Omeprazole Active 20 MG Oral Twice a 180 March 8:28am Ranitidine Hcl Active 150 MG Oral Twice a 180 March 8:28am Ondansetron Active 8 MG Oral Q8H May 05, 2019 2:38pm Alprazolam Active 0.5 MG Oral Twice a 60 May 3:20pm Gabapentin Active 600 MG Oral Four 120 May day 3:20pm Cholecalciferol Active 5000 UNIT Oral Daily May (Vitamin D3) 2018 1:28pm Meloxicam Active 15 MG Oral Daily December 02, 2018 6:44am Albuterol Active 1 PUFF INHALATIO Daily May IN CALL 1 PUFF Sulfate N , BY MOUTH ONC E 2018 DAILY FOR 6:27am BREATHING PROBLEMS Quetiapine Active 400 MG Oral At May bedtime ly 2018 6:27am Lisinopril Active 10 MG Oral Daily May 23, 2019 1:08pm Quetiapine Active 100 MG Oral At May bedtime ly 2018 1:12pm Problems Active Problems Medical Problem Onset Date Status Lumbar degenerative disc disease Active Lumbar disc disease with Active radiculopathy Fracture of wrist Active Anxiety Active Fibromyalgia Active Arthritis of knee, degenerative Active Lumbar degenerative disc disease Active Total knee replacement status Active Neck pain Active GERD (gastroesophageal reflux Active disease) Shoulder pain, bilateral Active Vitamin D deficiency Active Procedures Procedure Date Performed Status XR chest 2V May 15, 2019 completed ECG initial Isiah May 15, 2019 completed MRSA Culture May 15, 2019 completed XR knee RT 2V May 23, 2019 completed Total Knee Arthroplasty (Right) May 23, 2019 8:16am c ompleted May 23, 2019 7:30am completed May 23, 2019 7:30am completed XR knee RT 4V March 17, 2019 completed XR wrist RT min 3V March 17, 2019 completed Relevant Diagnostic Tests and/or Laboratory Data Laboratory Results Test Date/Time Result Interpretation Reference Result Perfo rming Range Comment Site White Blood May 6.5 K/mm3 4.8-10.8 [facility], [address] [place] [address] 36 E Count 2018 Lindsey CHEN 24246 3:44pm White Blood May 16.1 K/mm3 4.8-10.8 [facility], [address] [place] [address] 36 E Count 2018 Lindsey CHEN 46804 7:20am Red Blood Count May 4.23 M/mm3 4.20-5.40 [facility], [address] [place] [address] 36 E 2018 Lindsey CHEN 69768 3:44pm Red Blood Count May 3.23 M/mm3 4.20-5.40 [facility], [address] [place] [address] 36 E 2018 Lindsey CHEN 71944 7:20am Hemoglobin May 12.0 g/dL 12.2-16.[address] 36 E 2018 Lindsey CHEN [address]90 3:44pm Hemoglobin May 9.1 g/dL 12.2-16.2 [facility], [address] [place] [address] 36 E 2018 Lindsey CHEN 53347 7:20am Hematocrit November 37.9 % 37.0-47.0 [facility], [address] [place] [address] E 2018 [place] [address] 3:44pm Hematocrit November 28.9 % 37.0-47.0 [facility], [address] [place] [address] E 2018 Lindsey [place] [address]483 7:20am Mean November 89.7 fl 81-99 [facility], [address] [place] [address] E Corpuscular 2018 Michelle michael [place] [address] Volume 3:44pm Mean November 89.3 fl 81-99 [facility], [address] [place] [address] E Corpuscular 2018 Michelle michael CHEN 77400 Volume 7:20am Mean May 28.4 pg 27.0-31.2 [facility], [address] [place] [address] E Corpuscular 2018 Michelle michael G[place] [address]87 Hemoglobin 3:44pm Mean May 28.3 pg 27.0-31.2 [facility], [address] [place] [address] E Corpuscular 2018 Michelle michael CHEN 17756 Hemoglobin 7:20am Mean May 31.7 g/dL 31.8-35.4 [facility], [address] [place] [address] E Corpuscular 2018 Michelle michael G[place] 8[address]60 Hemoglobin 3:44pm Concent Mean November 31.7 g/dL 31.8-35.4 [facility], [address] [place] [address] E Corpuscular 2018 Michelle michael CHEN 77461 Hemoglobin 7:20am Concent Red Cell November 15.6 % 11.5-17.5 [facility], [address] [place] [address] E Distribution 2018 [place] núñez [place] [address] Width 3:44pm Red Cell May 16.0 % 11.5-17.5 [facility], [address] [place] [address] E Distribution 2018 Denisse CHEN 79863 Width 7:20am Platelet Count May 412 K/mm3 142-424 [facility], [address] [place] [address] E 2018 Lindsey CHEN 06894 3:44pm Platelet Count May 301 K/mm3 142-424 [facility], [address] [place] [address] 36 E 2018 [place] [address] 7:20am Mean Platelet May 7.9 fl 7.4-10.4 [facility], [address] [place] [address] E Volume 2018 [place] [address] 3:44pm Mean Platelet May 8.7 fl 7.4-10.4 [facility], [address] [place] [address] E Volume 2018 [place] [address] 7:20am Neutrophils (%) May 43.8 % 37.0-80.0 [facility], [address] [place] [address] 36 E (Auto) 2018 [place] [address] 3:44pm Neutrophils (%) May 81.6 % 37.0-80.0 [facility], [address] [place] [address] 36 E (Auto) 2018 [place] [address] 7:20am Lymphocytes (%) May 44.6 % 10-50 [facility], [address] [place] [address] E (Auto) 2018 [place] [address] 3:44pm Lymphocytes (%) May 12.9 % 10-50 [facility], [address] [place] [address] 36 E (Auto) 2018 [place] [address] 7:20am Monocytes (%) May 4.8 % 1.7-9.3 [facility], [address] [place] [address] 36 E (Auto) 2018 [place] [address] 3:44pm Monocytes (%) May 5.1 % 1.7-9.3 [facility], [address] [place] [address] 36 E (Auto) 2018 [place] [address] 7:20am Eosinophils (%) May 6.2 % 0.1-12.0 [facility], [address] [place] [address] 36 E (Auto) 2018 [place] [address] 3:44pm Eosinophils (%) May 0.2 % 0.1-12.0 [facility], [address] [place] [address] 36 E (Auto) 2018 [place] [address] 7:20am Basophils (%) May 0.6 % 0.1-2.0 [facility], [address] [place] [address] 36 E (Auto) 2018 [place] [address] 3:44pm Basophils (%) May 0.1 % 0.1-2.0 [facility], [address] [place] [address] 36 E (Auto) 2018 [place] [address] 7:20am Neutrophils # May 2.8 K/mm3 1.8-7.8 [facility], [address] [place] [address] 36 E (Auto) 2018 [place] 31 3:44pm Neutrophils # May 13.1 K/mm3 1.8-7.8 [facility], [address] [place] [address] 36 E (Auto) 2018 [place] [address] 7:20am Lymphocytes # May 2.9 K/mm3 0.7-4.5 [facility], [address] [place] [address] E (Auto) 2018 [place] [address] 3:44pm Lymphocytes # May 2.1 K/mm3 0.7-4.5 [facility], [address] [place] [address] E (Auto) 2018 [place] [address] 7:20am Monocytes # May 0.3 K/mm3 0.1-1.0 [facility], [address] [place] [address] 36 E (Auto) 2018 [place] [address] 3:44pm Monocytes # May 0.8 K/mm3 0.1-1.0 [facility], [address] [place] [address] 36 E (Auto) 2018 [place] [address] 7:20am Eosinophils # May 0.4 K/mm3 0.0-0.4 [facility], [address] [place] [address] 36 E (Auto) 2018 [place] [address] 3:44pm Eosinophils # May 0.0 K/mm3 0.0-0.4 [facility], [address] [place] [address] 36 E (Auto) 2018 [place] [address] 7:20am Basophils # May 0.0 K/mm3 0-0.2 [facility], [address] [place] [address] 36 E (Auto) 2018 [place] [address] 3:44pm Basophils # May 0.0 K/mm3 0-0.2 [facility], [address] [place] [address] E (Auto) 2018 [place] [address] 7:20am Differential November 100 [facility], [address] [place] [address] 36 E Total Cells 2018 Michelle rodriguez GUST[place]O [address] Counted 7:20am Neutrophils % May 79 % 42-76 [facility], [address] [place] [address] 36 E (Manual) 2018 Lindsey CHEN 23733 7:20am Band November 1.0 0-8 [facility], [address] [place] [address] 36 E Neutrophils % 2018 Alana caprimichael CHEN 23430 7:20am Lymphocytes % May 18 % 10-50 [facility], [address] [place] [address] 36 E (Manual) 2018 Lindsey CHEN 96179 7:20am Monocytes % May 2 % 2-9 [facility], [address] [place] [address] 36 E (Manual) 2018 Lindsey CHEN 06918 7:20am Platelet May Normal [facility], [address] [place] [address] 36 E Estimate 2018 Lindsey CHEN 31861 7:20am Poikilocytosis May 05+ [facility], [address] [place] [address] 36 E 2018 Lindsey CHEN 81101 7:20am Anisocytosis May 05+ [facility], [address] [place] [address] 36 E 2018 Lindsey CHEN 83955 7:20am Acanthocytes May 05+ [facility], [address] [place] [address] 36 E 2018 Lindsey CHEN 16153 7:20am Prothrombin May 9.5 seconds 9.4-11.8 [facility], [address] [place] [address] 36 E Time 2018 Lindsey CHEN 58349 3:44pm Prothromb Time May 0.91 0.9-1.1 [facility], [address] [place] [address] 36 E International 2018 INDICATION Cynt nataliya CHEN 687[address] Ratio 3:44pm INR RANGETherapy for DVT, PE, Atrial Fib, 2.0-3.0Prophy laxis for VTE.Therapy for Mechanical Heart Valve, 2.5-3.5Preven tion of Sytemic Emolism secondary to AMI. Urine Color May Yellow Yellow [facility], [address] [place] [address] 36 E 2018 Lindsey CHEN 96040 7:45am Urine May Clear Clear [facility], [address] [place] [address] 36 E Appearance 2018 Jailene Arroyo 7:45am Urine pH November 6.0 5.0-8.5 [facility], [address] [place] [address] 36 E 2018 Lindsey Arroyo 7:45am Urine Specific November >= 1.030 1.005-1.03 [facility], [address] [place] [address] 36 E [place] 2018 0 Lindsey Arroyo 7:45am Urine Protein November Negative Negative [facility], [address] [place] [address] 36 E 2018 Lindsey Arroyo 7:45am Urine Glucose November Negative Negative [facility], [address] [place] [address] 36 E (UA) 2018 Lindsey Arroyo 7:45am Urine Ketones November Negative Negative [facility], [address] [place] [address] 36 E 2018 Lindsey Arroyo 7:45am Urine Blood November Negative Negative [facility], [address] [place] [address] 36 E 2018 Lindsey Arroyo 7:45am Urine Nitrate November Negative Negative [facility], [address] [place] [address] 36 E 2018 Lindsey Arroyo 7:45am Urine Bilirubin November Negative Negative [facility], [address] [place] [address] 36 E 2018 Lindsey Arroyo 7:45am Urine November 0.2 EU/dl [facility], [address] [place] [address] 36 E Urobilinogen 2018 Denisse Arroyo 7:45am Urine Leukocyte November Negative Negative [facility], [address] [place] [address] 36 E Esterase 2018 Lindsey Arroyo 7:45am Urine WBC November Occasional [facility], [address] [place] [address] 36 E 2018 #/hpf Lindsey Arroyo 7:45am Urine HCG, November Negative Negative [facility], [address] [place] [address] 36 E Qualitative 2018 Michelle Arroyo 3:44pm Sodium Level November 140 mmol/L 136-145 [facility], [address] [place] [address] 36 E 2018 Lindsey Phelps31 3:44pm Sodium Level November 137 mmol/L 136-145 [facility], [address] [place] [address] 36 E 2018 Lindsey Arroyo 7:20am Potassium Level November 4.0 mmoL/L 3.5-5.1 [facility], [address] [place] [address] 36 E 2018 [place] [address] 3:44pm Potassium Level November 4.1 mmoL/L 3.5-5.1 [facility], [address] [place] [address] 36 E 2018 [place] 111[address] 7:20am Chloride Level November 106 mmol/L 98-107 [facility], [address] [place] [address] 36 E 2018 [place] 43[address] 3:44pm Chloride Level November 106 mmol/L 98-107 [facility], [address] [place] [address] 36 E 2018 [place] 22692 7:20am Carbon Dioxide November 26 mmol/L 21.0-32.0 [facility], [address] [place] [address] E Level 2018 [place] GUST[place] 20307 3:44pm Carbon Dioxide November 26 mmol/L 21.0-32.0 [facility], [address] [place] [address] E Level 2018 [place] G[place] [address]56[address] 7:20am Anion Gap May 12.0 mEq/L 11-16 [facility], [address] [place] [address] E 2018 Lindsey G[place] 11567 3:44pm Anion Gap May 9.1 mEq/L 11-16 [facility], [address] [place] [address] 36 E 2018 Lindsey G[place] 15309 7:20am Blood Urea November 8 mg/dL 01-19 [facility], [address] [place] [address] E Nitrogen 2018 Lindsye CHEN 10065 3:44pm Blood Urea May 8 mg/dL 01-19 [facility], [address] [place] [address] E Nitrogen 2018 Lindsey G[place] 81884 7:20am Creatinine May 1.11 mg/dL 0.55-1.02 [facility], [address] [place] [address] 36 E 2018 Lindsey CHEN 04862 3:44pm Creatinine May 0.99 mg/dL 0.55-1.02 [facility], [address] [place] [address] 36 E 2018 Lindsey CHEN 57103 7:20am Estimated November 63 mL/min 0-300 [facility], [address] [place] [address] E Creatinine 2018 Jailene Phelps31 Clearance 7:20am Estimated GFR May 65 ML/MIN >59 [facility], [address] [place] [address] 36 E ( 2018 Lindsey CHEN [address] [place]) 3:44pm Estimated GFR May 74 ML/MIN >59 [facility], [address] [place] [address] 36 E ( 2018 [place] [address] [place]) 7:20am Estimat November 54 ml/min >59 [facility], [address] [place] [address] 36 E Glomerular 2018 [place] CHEN 75[address] Filtration Rate 3:44pm Estimat May 61 ml/min >59 [facility], [address] [place] [address] 36 E Glomerular 2018 [place] CHEN 89538 Filtration Rate 7:20am Glucose Level May 100 mg/dL 74-106 [facility], [address] [place] [address] 36 E 2018 Lindsey CHEN 26257 3:44pm Glucose Level May 107 mg/dL 74-106 [facility], [address] [place] [address] 36 E 2018 Lindsey CHEN 31782 7:20am Calcium Level May 10.6 mg/dL 8.5-10.1 [facility], [address] [place] [address] 36 E 2018 Lindsey CHEN 65733 3:44pm Calcium Level May 9.5 mg/dL 8.5-10.1 [facility], [address] [place] [address] 36 E 2018 Lindsey CHEN 48214 7:20am Total Bilirubin May 0.1 mg/dL 0.2-1.0 [facility], [address] [place] [address] 36 E 2018 Lindsey CHEN 44584 3:44pm Aspartate Amino May 18 U/L 15-37 [facility], [address] [place] [address] 36 E Transf 2018 Lindsey CHEN 73592 (AST/SGOT) 3:44pm Alanine May 29 U/L 12-78 [facility], [address] [place] [address] 36 E Aminotransferas 2018 Lala sol CHEN 99552 e (ALT/SGPT) 3:44pm Total Protein May 7.5 gm/dL 6.4-8.2 [facility], [address] [place] [address] 36 E 2018 [place] [address] 3:44pm Albumin May 3.7 gm/dL 3.4-5.0 [facility], [address] [place] [address] 36 E 2018 Lindsey CHEN 20835 3:44pm Globulin May 3.8 gm/dl 1.3-3.2 [facility], [address] [place] [address] 36 E 2018 Lindsey CHEN 09591 3:44pm Albumin/Globuli May 1.0 1.1-1.8 [facility], [address] [place] [address] 36 E n Ratio 2018 Lindsey CHEN 95824 3:44pm Alkaline May 134 U/L 46-116 [facility], [address] [place] [address] 36 E Phosphatase 2018 Michelle CHEN 91571 3:44pm Serum HCG, May Negative Negative [facility], [address] [place] [address] 36 E Qualitative 2018 Michelle CHEN 31101 6:51am Microbiology Results Procedure Source Result Collection Result Result Performin g Date/Time Date/Time Comment Site MRSA Culture Nose Negative May 15May [facility], [address] [place] [address] 36 E 2018 3:44pm 2018 Michelle CHEN 77099 3:12pm Diagnostic Imaging Reports Report Dictated Date/Time Dictated By Status Radiology Report March 17, 2019 Ferdinand Olvera MD completed 1:16pm [address] [place] [address] XRay R eport Sig eloina Patient: Alejandro Madsen MR#: [id number] : 1975 Acct:[id number] Age/Sex: 43 / F ADM Date: 9 Loc: RAD Attending Dr: Kiesha Brown MD Ordering Physician: Kiesha Brown MD Date of Service: 03/17/19 Procedure(s): XR wrist RT min 3V Accession Number(s): [id number] cc: Ferdinand Olvera MD; Ifeoma Pate~ PROCEDURE: XR WRIST RT MIN 3V CLINICAL INDICATION: wrist fracture Follow-up fracture/ORIF COMPARISON: Wrist R from 11/25/2018 from 02/13/2019 FINDINGS: No change in the volar bone plate with multiple screws stabilizing the distal radial fracture with good al ignment. Fracture line is still visible. Avulsion fracture at th e tip of the ulnar styloid once again noted. IMPRESSION: No change status post ORIF distal radia l fracture with good alignment Dictated by: Ferdinand Olvera MD 03/17/2019 15:11 Electronically signed by Ferdinand Olvera in OV 03/17/2019 15:11 Radiology Report March 17, 2019 Ferdinand Olvera MD completed 1:16pm [place] [id number] [facility] [address] [place] [address] XRay R eport Sig eloina Patient: Alejandro Madsen MR#: [id number] : 1975 Acct:[id number] Age/Sex: 43 / F ADM Date: 9 Loc: RAD Attending Dr: Kiesha Brown MD Ordering Physician: Kiesha Brown MD Date of Service: 03/17/19 Procedure(s): XR knee RT 4V Accession Number(s): [id number] cc: Ferdinand Olvera MD; Ifeoma Pate PA~ PROCEDURE: XR KNEE RT 4V CLINICAL INDICATION: knee pain COMPARISON: KNEESTBI XR knee standing BI from 10/21/2017 [id number] XR knee LT 4V from 10/21/2017 [id number] XR knee RT 4V from 10/21/2017 FINDINGS: No fracture or dislocation. No lytic or blastic change. There is normal mineralization. Moderate osteoarthritic changes are pre sent at the lateral compartment probably unchanged given th e difference in positioning. Minimal osteoarthritic changes present at the patellofemoral joint and medial compartment. No fracture or dislocation. Ununited ossification centers present at the tib ial tuberosity IMPRESSION: Osteoarthritic changes of the knee as d escribed Dictated by: Ferdinand Olvera MD 03/17/2019 15:14 Electronically signed by Ferdinand Olvera in [place] 03/17/2019 15:14 Radiology Report May 15, 2019 Ferdinand Olvera MD completed 3:33pm [address] [place] [address] XRay R eport Sig eloina Patient: Alejandro Madsen MR#: [id number] : 1975 Acct:[id number] Age/Sex: 43 / F ADM Date: 9 Loc: [facility] Attending Dr: Kiesha Brown MD Ordering Physician: Kiesha Brown MD Date of Service: 05/15/19 Procedure(s): XR chest 2V Accession Number(s): [id number] cc: Ferdinand Olvera MD; Ifeoma Pate PA~ PROCEDURE: XR CHEST 2V CLINICAL HISTORY: COPD,HTN COMPARISON: CXR2V XR chest 2V from FINDINGS: The cardiomediastinal silhouette and pu lmonary vascularity are within normal limits. Minimal fibrotic changes present in the left lung base. No lobar consolidation or collapse. No acute bony abnormalities. IMPRESSION: Minimal fibrotic change left lung base. No change with no acute finding Dictated by: Ferdinand Olvera MD 05/15/2019 15:58 Electronically signed by Ferdinand Olvera in [place] 05/15/2019 15:58 Radiology Report May 23, 2019 Ferdinand Olvera MD completed 12:12pm [facility] [address] [place] [facility] [address] [place] [address] XRay R eport Sig eloina Patient: Alejandro Madsen MR#: [id number] : 1975 Acct:[id number] Age/Sex: 43 / F ADM Date: 9 Loc: [address] [place] [address].2A-[address]: Kiesha Brown MD Ordering Physician: Kiesha Brown MD Date of Service: 05/23/19 Procedure(s): XR knee RT 2V Accession Number(s): [id number] cc: Ferdinand Olvera MD; Ifeoma Pate PA~ PROCEDURE: XR KNEE RT 2V CLINICAL INDICATION: post op total kne e arthroplasty COMPARISON: KNEESTBI XR knee standing BI from 10/21/2017 [id number] XR knee LT 4V from 10/21/2017 [id number] XR knee RT 4V from 10/21/2017 XR KNEE RT 4V from 03/17/2019 FINDINGS: Normal alignment status post total knee arthroplasty. Postoperative gas and skin clips are present. Other findings:None. IMPRESSION: Post total knee replacement with good a lignment Dictated by: Ferdinand Olvera MD 05/23/2019 12:19 Electronically signed by Ferdinand Olvera in [place] 05/23/2019 12:19 Health Concerns Concerns post op pain, mobility Advance Directives Advance Directive Response Recorded Date/Time Does the patient have an No May 08, 3:25pm advanced directive on file? Living Will No May 08, 2019 3 :25pm Does the patient have an No March 08, 2019 3:01pm advanced directive on file? Living Will No March 08, 2019 3:01pm Chief Complaint and Reason for Visit Chief Complaint 3 month follow up RT WRIST, RT KNEE 3V, AO 2018 Rt wrist fu/rt knee pain Dept has Order: R knee OA 2 month follow up Rt knee pain FU EKG, CXR, Labs LAB WORK OR Reason for Visit Arthritis of knee, degenerat wilton Total knee replacement statu s Encounters Encounter Location(s) Arrival/Admit Date Discharge/Depart Date Provider(s) Departed [facility] Physician March 08March 08, 2019 Ifeoma Pate Physician/[facility]-Primary 2018 1:41pm 2:36pm , PA neha Office Care-Garrett Visit Registered [facility] Physician March 17, Kiesha Clinical Group-Radiology 2018 12:42pm MD Kevin Departed [facility] Physician March 17, March 17, 2019 Christopher spencer Physician/[facility]-Surgical 2018 1:23pm 3:40pm MD Kevin neha Office Suite Visit Registered [facility] Physician April 27, 2019 Kiesha Recurring Group-Physical 4:30pm Ruddy Brown Therapy Departed [facility] Physician May 08, 2019 May 08, 2019 Ursula Pate Physician/[facility] Group-Primary 1:52pm 2:36pm , PA neha Office Care-Garrett Visit Departed [facility] Physician May 15, May 15, 2019 Shavonne marques Physician/[facility] Group-Surgical 2018 1:59pm 3:15pm MD Kevin neha Office Suite Visit Registered [facility] Physician May 15, Kiesha Clinical Group-Radiology 2018 3:18pm MD Kevin Registered [facility] Physician May 20, Kiesha Clinical Group-Laboratory 2018 10:28am MD Kevin Admitted [facility] Physician May 23, Kiesha Inpatient Group-Second 2018 6:13am MD Kevin Floor Registered [facility] Physician May 24, Kiesha Inpatient Group- 2018 11:48am MD Kevin Recent Diagnosis Onset Date Arthritis of knee, degenerative Total knee replacement status Assessments See care plan goals Functional Status Observation Response Date Recorded Oral Care Ability Independent May 23, 2019 1:25pm Bathing Ability Assistance x1 May 23, 2019 1:25pm Eating (Feeding) Ability Independent May 23, 2019 1:25pm Toileting Ability Assistance X1 May 23, 2019 1:25pm Ambulation Ability Assistance x1 May 23, 2019 1:25pm Functional status ambulatory May 16, 2019 9:58am Functional status ambulatory May 08, 2019 3 :25pm Functional status ambulatory March 26, 2019 10:14pm Functional status ambulatory March 08, 2019 3:01pm Goals Acute Goals Nursing Diagnosis: Knowledge Deficit D isease/Condition Goal(s): Education of di sease process Instruction(s): Follow provider p archana/instructions (See attached discharge education) Follow/up with primary care provider as instructed in discharge packet Ambulatory Goals Patient verbalizes understanding of dise ase process. Patient to follow plan of care. Education provided. 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 Lot Vac cine Reason Number Number Informatio n Statement (VIS) Deta il Flublok April 20, quadrivalent 2018 Fluzone Quad March 6mo+ 2017 Hepatitis A August 08, Vaccine, adult 2019 dosage Hepatitis A February 03, Vaccine, adult 2018 dosage Mental Status Observation Response Date Recorded Comprehension Ability No Impairment May 24 9 11:00am Able to Read Yes May 23, 2019 1:25pm Able to Write Yes May 23, 2019 1:25pm Ability to Follow Directions Good May 232018 1:25pm Eye Contact Maintains Eye Contact May 23 9 1:25pm Oral Expression Ability No Impairment May 23 019 1:25pm Medical Equipment Implanted Devices Device Date Implanted HERMELINDA Number LOCKING SCREW 2.7 X 18MM December 02, 2018 LOCKING SCREW 2.7 X 18MM December 02, 2018 LOCKING SCREW 2.7 X 18MM December 02, 2018 PLATE VOLAR RT 11H SHORT December 02, 2018 SCREW BONE 2.7 12MM December 02, 2018 [id number] SCREW BONE 2.7 12MM December 02, 2018 [id number] SCREW BONE 2.7 12MM December 02, 2018 [id number] Insurance Providers Guarantor Alejandro Madsen Address [address] [place] [address] [address] [address] Contact Info. Home Phone: Payer Policy Id Coverage Id Subscriber's Subscriber Id Effective E xpiration Name Date Bessie [id number] Alejandro Madsen [id number] Claims [id number] Self Pay Self N/A Plan of Treatment Follow up as ordered by PCP 43yo F with DJD R knee The patient has exhausted conservative treatment for knee arthritis, consisting of: ice, activity modification, NSAIDs, tylenol, intra-articular steroid injection, hyaluronic acid injections, OTC bracing, and physical therapy. The pain has become so severe that it is inhibiting her ability to perform ADLs and is adversely affecting her quality of life. [place] discussed surgical options with the patient and have recommended total knee arthroplasty. We discussed at length the surgical technique and expected perioperative course, including length of hospitalization, need for postoperative physical therapy, use of anticoagulants, expected level of pain, and total length of recovery. I discussed her increased risk for infection given a history of MRSA infection and recent CSI, and overall increased risk of livan-operative complication given her increased BMI. I also explained the potential risks of surgery, including bleeding, infection, fracture, wound healing complications, need for revision surgery, continued pain post-operatively, DVT/PE, and risks of both general and regional anesthesia, including nerve damage, heart attack, stroke and even . The patient vocalized understanding of these risks and has agreed to proceed with surgery; informed consent was obtained. We have scheduled R TKA for 05/23/2019. Prior to that date we will perform preoperative lab testing, CXR and EKG, and have the patient obtain clearance from her PCP. Disclaimer: Portions of this office visit were transcribed with voice recognition software. Notes are proofread for errors, but minor grammatical or spelling errors may persist. RF Xanax and Neurontin per Dr Tucker 43yo F s/p ORIF R DRF 12/02/2018; also evaluated R knee today, patient has DJD of this knee I discussed the natural history of degenerative joint disease of the knee with the patient as well as all treatment options, both operative and non-operative. I provided them with a handout of my non-operative knee arthritis protocol and discussed the following as a means of improving their pain and quality of life: weight loss, activity modification, oral analgesics/NSAIDs, ice, bracing, intraarticular corticosteroid injections, viscosupplementation, physical therapy, and glucosamine-chondroitin supplements. After discussion, we decided to proceed with the following treatment: -- ice, activity modification, weight loss, NSAIDs if approved by PCP, continue in pain management -- steroid injection given today; see procedure note below -- will try bracing; disease is predominantly in lateral compartment, so will try custom lateral offloader brace if approved by insurance -- will send to physical therapy -- f/u PRN for wrist, 4-6 weeks for knee Intraarticular corticosteroid injection: After obtaining verbal consent, the R knee was prepped with chlorhexidine and injected intraarticularly with 40mg Kenalog and 2cc 1% lidocaine w/o epinephrine using an anterolateral approach. The patient tolerated the procedure well without immediate adverse sequelae; the injection site was covered with a BandAid. Disclaimer: Portions of this office visit were transcribed with voice recognition software. Notes are proofread for errors, but minor grammatical or spelling errors may persist. Future Tests Future scheduled test information is unavailable Pending Tests Pending diagnostic test information is unavailable Future Visits Future appointment information is unavailable Referrals to Other Providers Reason for Referral Start Provider Provider Contact Provider Address Referral Date Information Admission to [facility] May [address] Future Procedures Future procedure information is unavailable Future Medications Future medication information is unavailable Patient Instructions Anxiety Disorders Degenerative Disc Disease Osteoarthritis Herniated Disc Osteoarthritis Knee Replacement DI for Knee Replacement DI for Surgical Site Infection Social History Assigned Sex Female Vital Signs Vital Reading Result Reference Range Collection Date/ Time Height 160.02 cm March 08 1:47pm Weight 109.76 kg March 08 1:47pm Body Temperature 97.3 [degF] 97.6-99.6 March 08, 2019 1:47pm Heart Rate 115 /min 60-90 March 08 1:47pm Oxygen saturation by 96 % 95-100 March 082018 Pulse oximetry 1:47pm BP Systolic 132 mm[Hg] 110-140 March 08 1:47pm BP Diastolic 80 mm[Hg] 60-90 March 08 019 1:47pm BMI (Body Mass Index) 42.8 kg/m2 March 08, 2019 1:47pm Height 162.56 cm March 17, 2019 1:40pm Weight 109.31 kg March 17, 2019 1:40pm Heart Rate 108 /min -March 17, 2019 1:40pm BP Systolic 141 mm[Hg] 110-140 March 17, 2019 1:40pm BP Diastolic 94 mm[Hg] 60-90 March 17, 2019 1:40pm BMI (Body Mass Index) 41.3 kg/m2 March 17, 2019 1:40pm Height 162.56 cm May 08 1:55pm Weight 112.94 kg May 08 1:55pm Body Temperature 97.6 [degF] 97.6-99.6 May 08, 019 1:55pm Heart Rate 112 /min -May 08 1:55pm Oxygen saturation by 97 % 95-100 May Pulse oximetry 1:55pm BP Systolic 140 mm[Hg] 110-140 May 08 1:55pm BP Diastolic 88 mm[Hg] 60-May 08 1:55pm BMI (Body Mass Index) 42.7 kg/m2 May 082018 1:55pm Height 162.56 cm May 15, 2 019 2:11pm Weight 113.51 kg May 15, 2 019 2:11pm Heart Rate 116 /min -May 15, 2 019 2:11pm BP Systolic 119 mm[Hg] 110-140 May 15, 2 019 2:11pm BP Diastolic 75 mm[Hg] 60-90 May 15, 2 019 2:11pm BMI (Body Mass Index) 42.9 kg/m2 May 052018 2:11pm Height 163 cm May 24, 2 019 11:18am Weight 118.47 kg May 24, 2 019 11:18am Body Temperature 98.5 [degF] 97.6-99.6 May 24, 2019 8:00am Heart Rate 116 /min -May 24, 2 019 8:00am Respiratory rate 22 /min -May 24, 2019 9:52am Oxygen saturation by 94 % 95-100 May 242018 Pulse oximetry 8:00am BP Systolic 121 mm[Hg] 110-140 May 24, 2 019 8:00am BP Diastolic 73 mm[Hg] 60-90 May 24 8:00am BMI (Body Mass Index) 44.6 kg/m2 May 062018 11:18am
--- NOTE | 2019-05-24 12:44 | Progress Note ---
Subjective Date: 05/24/19 Time: 11:00 Principal diagnosis: s/p R TKA Interval history: The patient is doing well this morning despite reporting significant pain in the R knee. She has been out of bed, is tolerating PO intake and reports no other symptoms such as fevers/chills, dizziness, chest pain, shortness of breath, or abdominal pain. PN: Obj Ex Vital signs: Temp Pulse Resp BP Pulse Ox 98.6 F 112 H 18 115/75 97 05/24/19 12:00 05/24/19 12:00 05/24/19 12:00 05/24/19 12:00 05/24/19 12:00 - Constitutional no acute distress - Routine HEENT Exam Head: Present: normocephalic - Routine Respiratory Exam Present: CTA bilaterally - Routine Cardiovascular Exam Present: RRR - Routine Abdominal Exam Present: soft. Absent: tenderness - Routine Extremities Exam Comments: RLE dressings c/d/i, no strikethrough +DF/PF/EHL RLE SILT distally RLE R calf soft, compressible, non-tender palpable pedal pulses RLE, foot warm - Routine Skin Exam Present: warm - Routine Neurological Exam Present: alert, oriented X3, moving all extremities, normal tone, hearing grossly intact, normal speech. Absent: sensory deficit, motor deficit, altered mental status - Urinary Catheter Management Dias Cath placed during this visit: no Progress Note: A&P (1) Arthritis of knee, degenerative Status: Acute Current Visit: Yes (2) Total knee replacement status Status: Acute Current Visit: Yes Assessment and Plan for All Diagnoses:: 43yo F POD 1 s/p R TKA -- WBAT RLE, up ad janice with assist/RW -- continue PT/OT -- cryotherapy R knee -- will increase pain medication to percocet 10/325 q4hr + add toradol x24hr -- anticipate d/c home tomorrow if pain is better controlled, with OPPT f/u Wednesday
[2019-05-25 00:01] LABS: Basophils % 0.3 % (0.1-2.0); Eosinophils # 0.1 K/mm3 (0.0-0.4); Eosinophils % 1.2 % (0.1-12.0); Hematocrit 30.5 % (37.0-47.0); Hemoglobin 9.5 g/dL (12.2-16.2); Lymphocytes # 2.2 K/mm3 (0.7-4.5); Lymphocytes % 17.7 % (10-50); Mean Corpuscular HGB Conc 31.1 g/dL (31.8-35.4); Mean Corpuscular Volume 90.3 fl (81-99); Mean Platelet Volume 9.4 fl (7.4-10.4); Monocytes # 0.6 K/mm3 (0.1-1.0); Monocytes % 4.9 % (1.7-9.3); Neutrophils # 9.4 K/mm3 (1.8-7.8); Neutrophils % 75.9 % (37.0-80.0); Platelet Count 285 K/mm3 (142-424); Red Blood Count 3.38 M/mm3 (4.20-5.40); Red Cell Distribution Width 15.9 % (11.5-17.5); White Blood Count 12.4 K/mm3 (4.8-10.8)
[2019-05-25 00:08] LABS: Anion Gap 7.8 mEq/L (5-15); Calcium 9.7 mg/dL (8.5-10.1)
--- NOTE | 2019-05-25 09:02 | Consult Report ---
*Admission Date: 05/23/19 *Reason for consult:: medical consult *History of present illness: 43yo F with a history of chronic R knee pain; she underwent prior arthroscopic surgery on this knee though the procedure and year are unknown. She has received multiple steroid and SALMERON injections in the knee over the years, none of which have been effective. Under my care, she has tried the following for her knee: ice, activity modification, NSAIDs, tylenol, intra-articular steroid injection, physical therapy. She is in pain management for her back and takes Guthrie at baseline as well. Offloader brace was ordered by myself, but this was not covered by insurance and the cost was very high so the patient elected not to buy it. She has a history of HTN, GERD, fibromyalgia, vitamin D deficiency, PTSD, chronic back pain with sciatica; NO history of DM. She has a history of MRSA infection in her left foot. Surgical history includes b/l knee arthroscopy, hysterectomy, ORIF b/l DRF, cholecystectomy. She is and lives with her ; she does not work. Their home is one level and she feels she has good support at home; transportation is often an issue, however. She is a smoker but denies alcohol use. BMI is 42.9; weight was measured in the office today. The steroid injection she received at her last visit with me on 03/17/2019 was ineffective; she would like to discuss surgical options for her knee. The patient has exhausted conservative treatment for knee arthritis, consisting of: ice, activity modification, NSAIDs, tylenol, intra-articular steroid injection, hyaluronic acid injections, OTC bracing, and physical therapy. The pain has become so severe that it is inhibiting her ability to perform ADLs and is adversely affecting her quality of life. Monica discussed surgical options with the patient and have recommended total knee arthroplasty. We discussed at length the surgical technique and expected perioperative course, including length of hospitalization, need for postoperative physical therapy, use of anticoagulants, expected level of pain, and total length of recovery. I discussed her increased risk for infection given a history of MRSA infection and recent CSI, and overall increased risk of livan-operative complication given her increased BMI. I also explained the potential risks of surgery, including bleeding, infection, fracture, wound healing complications, need for revision surgery, continued pain post-operatively, DVT/PE, and risks of both general and regional anesthesia, including nerve damage, heart attack, stroke and even . The patient vocalized understanding of these risks and has agreed to proceed with surgery; informed consent was obtained. She obtained medical clearance from her primary care physician. R TKA was performed today without complication. [facility] History I have reviewed the patient's past medical history: Yes Medical History: Reports:: Anxiety, Chronic Obstructive Pulmonary Disease (COPD), Depression, Gastroesophageal Reflux Disease(GERD), Hiatal Hernia, Lung Disease, MRSA (toe) Denies:: Cancer, Diabetes Mellitus Type 1, Diabetes Mellitus Type 2, Internal Pacemaker, Seizures *Have you ever received a pneumonia vaccine?: Yes *Have you received a flu vaccine this season?: Yes Other Medical History: Reports: Arthritis, Fibromyalgia, Other. Denies: Blood Transfusion Reaction Anesthesia experience/problems:: Wakes up angry Laterality Cases: Bilateral: Arthroscopy Knee Other Surgeries: Yes: No Previous Surgery, Cholecystectomy, Colonoscopy, EGD, Hysterectomy-Total, Tubal Ligation, Other. No: Pacemaker Amputation: No Fractures: Yes (aisha wrist) - *Social History Educational Level: Attended Grade School Smoking Status: Current every day smoker Tobacco Type: cigarettes # Packs/Day (cigarettes): 1 Alcohol Intake: never Alcohol Intake Frequency:: other Substance Use Type: denies use *Occupational Status:: unemployed Housing: apartment Household Members: spouse *Travel in the last 8 weeks: None - Psychiatric History Pschychiatric History:: Reports:: Anxiety, Depression Family Hx:: Diabetes Review of Systems - Review of Systems Review of systems:: pertinent systems reviewed and negative unless documented below - Constitutional Denies body ache(s), Denies lack of energy - Eyes Denies change in vision - ENT Denies bleeding gums - *Cardiovascular Denies chest pain at rest, Denies fast heart rate - *Respiratory Denies chest congestion, Denies pain on inspiration - *Gastrointestinal Denies nausea, Denies vomiting - *Genitourinary Denies urinary incontinence - *Musculoskeletal Denies joint pain - Integumentary/Breasts Reports other, Denies rash - *Neurologic Denies weakness - Psychiatric Denies lack of enjoyment - Endocrine Denies excessive sweating - Hematologic/Lymphatic Denies easy bruising - Allergic/Immunologic Denies itchy eyes Meds Home Medications Medication Instructions Recorded Confirmed Type budesonide-formoterol HFA 160 1 puff INHALATION DAILY #10 g 09/14/18 05/23/19 Rx mcg-4.5 mcg/actuation aerosol inhaler Meloxicam 15 mg PO DAILY 12/02/18 05/23/19 History omeprazole 20 mg tablet,delayed 20 mg PO BID #180 tab 03/07/19 05/23/19 Rx release ranitidine 150 mg tablet 150 mg PO BID #180 tab 03/07/19 05/23/19 Rx ondansetron 8 mg disintegrating 8 mg PO Q8H PRN #30 tab 05/05/19 05/23/19 Rx tablet alprazolam 0.5 mg tablet 0.5 mg PO BID #60 tab 05/08/19 05/23/19 Rx gabapentin 600 mg tablet 600 mg PO QID #120 tab 05/08/19 05/23/19 Rx cholecalciferol (vitamin D3) 5,000 5,000 unit PO DAILY #90 cap 05/15/19 05/23/19 Rx unit capsule Albuterol Sulfate [Ventolin HFA] 1 puff IH DAILY 05/23/19 05/23/19 History Lisinopril [Lisinopril 10mg Tab] 10 mg PO DAILY 05/23/19 05/23/19 History Quetiapine Fumarate 400 mg PO HS 05/23/19 05/23/19 History Quetiapine Fumarate [Seroquel 100 mg PO HS 05/23/19 05/23/19 History 100mg tablet] Allergies Allergy/AdvReac Type Severity Reaction Status Date / Time No Known Allergies Allergy Verified 05/15/19 14:13 Exam Vital signs and Labs for Last 24 Hours: Temp Pulse Resp BP Pulse Ox 99.1 F 129 H 16 96/60 L 91 L 05/25/19 04:00 05/25/19 04:00 05/25/19 04:00 05/25/19 04:00 05/25/19 04:00 Laboratory Results - last 24 hr 05/24/19 07:20: Total Counted 100, Neutrophils % (Manual) 79 H, Band Neutrophils % 1.0, Lymphocytes % (Manual) 18, Monocytes % (Manual) 2, Platelet Estimate Normal, Poikilocytosis 1+, Anisocytosis 1+, Acanthocytes (Spur) 1+ 05/24/19 23:55: WBC 12.4 H, RBC 3.38 L, Hgb 9.5 L, Hct 30.5 L, MCV 90.3, MCH 28.1, MCHC 31.1 L, RDW 15.9, Plt Count 285, MPV 9.4, Neut % (Auto) 75.9, Lymph % (Auto) 17.7, [place] % (Auto) 4.9, Eos % (Auto) 1.2, Baso % (Auto) 0.3, Neut # (Auto) 9.4 H, Lymph # (Auto) 2.2, [place] # (Auto) 0.6, Eos # (Auto) 0.1, Baso # (Auto) 0.0 05/24/19 23:55: Sodium 134 L, Potassium 3.8, Chloride 104, Carbon Dioxide 26, Anion Gap 7.8, BUN 12 D, Creatinine 1.15 H, Estimated Creat Clear 54, Estimated GFR 51 L, Est GFR ( Amer) 62, Glucose 104, Calcium 9.7 05/24/19 23:55: Lactate 1.5 I & O for Last 24 hours: Intake & Output 05/22/19 05/23/19 05/24/19 05/25/19 11:59 11:59 11:59 11:59 Intake Total 2588 / 2588 420 / 420 Output Total 1200 / 1200 Balance 1388 / 1388 420 / 420 Weight 250 lb 261 lb 3.012 oz 225 lb 9 oz - Constitutional no acute distress, obese - *Routine HEENT Exam Head: Present: normocephalic Eye: Present: PERRL ENT: Present: mucous membranes moist - *Routine Neck Exam Present: supple, full ROM. Absent: lymphadenopathy - *Routine Respiratory Exam Present: CTA bilaterally - *Routine Cardiovascular Exam Present: RRR - *Routine Abdominal Exam Present: soft, normoactive bowel sounds. Absent: tenderness - *Routine Extremities Exam Present: full ROM, pulses intact, normal capillary refill. Absent: cyanosis, clubbing, edema Comments: Dressing and Fernando wrap to right lower extremity clean dry and intact, generalized edema to right lower extremity - *Routine Skin Exam Present: warm. Absent: rash Comments: Surgical incision dressing to right knee clean dry and intact - *Routine Neurological Exam Present: alert, oriented X3 - Routine Psychiatric Exam Present: normal affect Internal Medicine - CN: Reslt - Labs CBC & Chem 7: 05/24/19 23:55 05/24/19 23:55 Labs: Short CBC 05/24/19 Range/Units 23:55 WBC 12.4 H (4.8-10.8) K/mm3 Hgb 9.5 L (12.2-16.2) g/dL Hct 30.5 L (37.0-47.0) % Plt Count 285 (142-424) K/mm3 BMP 05/24/19 23:55 Sodium 134 L Potassium 3.8 Chloride 104 Carbon Dioxide 26 BUN 12 D Creatinine 1.15 H Glucose 104 Calcium 9.7 Assessment and Plan (1) Arthritis of knee, degenerative Current visit: Yes Status: Acute Category: Medical Code(s): M17.10 - Unilateral primary osteoarthritis, unspecified knee (2) Total knee replacement status Current visit: Yes Status: Acute Category: Surgical Code(s): Z96.659 - Presence of unspecified artificial knee joint - Assessment and plan all Dx Assessment and Plan for all problems:: Rounded with Dr. Tucker all orders per [place] From a medical point patient is okay to discharge home all orders per Dr. Francis
--- NOTE | 2019-05-25 16:51 | Progress Note ---
Subjective Date: 05/25/19 Time: 12:00 Principal diagnosis: s/p R TKA Interval history: The patient is doing well this afternoon. Pain is still significant. 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 I will be prescribing this for 2 weeks, at which time she will be following up with pain management and they will resume chronic pain medication. She has been fairly tachycardic overnight, with O2 sats in the low 90's. She has lung disease at baseline and denies current chest pain or shortness of breath. Lovenox has been given for around 24 hours now. PN: Obj Ex Vital signs: Temp Pulse Resp BP Pulse Ox 98.7 F 125 H 17 99/56 L 93 L 05/25/19 12:00 05/25/19 12:00 05/25/19 12:00 05/25/19 12:00 05/25/19 12:00 - Constitutional no acute distress - Routine HEENT Exam Head: Present: normocephalic Eye: Present: EOMI ENT: Present: mucous membranes moist - Routine Respiratory Exam Present: CTA bilaterally - Routine Cardiovascular Exam Present: tachycardia - Routine Abdominal Exam Present: soft. Absent: tenderness - Routine Extremities Exam Comments: RLE dressings c/d/i, no strikethrough dressing removed, incision c/d/i w/o erythema or active drainage mild blistering of proximal tibia, well lateral to incision; most likely due to swelling moderate soft tissue swelling R knee +DF/PF/EHL RLE SILT distally RLE R calf soft, compressible, non-tender palpable pedal pulses RLE, foot warm - Routine Skin Exam Present: warm - Routine Neurological Exam Present: alert, oriented X3, moving all extremities, normal tone, hearing grossly intact, normal speech. Absent: sensory deficit, motor deficit, altered mental status - Urinary Catheter Management Dias Cath placed during this visit: no Progress Note: A&P (1) Arthritis of knee, degenerative Status: Acute Current Visit: Yes (2) Total knee replacement status Status: Acute Current Visit: Yes Assessment and Plan for All Diagnoses:: 43yo F POD 2 s/p R TKA -- WBAT RLE, up ad janice with assist/RW -- continue PT/OT -- cryotherapy R knee -- DVT prophy: SCDs + lovenox (x2 weeks, then ASA x1 mo) -- encourage IS 10x/hr while awake -- the patient would like to do outpatient PT, has an appointment scheduled for tomorrow afternoon -- will order VQ scan + CXR this afternoon to r/o PE; if this is negative will d/c home
--- NOTE | 2019-05-25 17:02 | Discharge Summary ---
General - General Admission date:: 05/23/19 Discharge date: 05/25/19 HPI HPI: 43yo F with a history of chronic R knee pain; she underwent prior arthroscopic surgery on this knee though the procedure and year are unknown. She has received multiple steroid and SALMERON injections in the knee over the years, none of which have been effective. Under my care, she has tried the following for her knee: ice, activity modification, NSAIDs, tylenol, intra-articular steroid injection, physical therapy. She is in pain management for her back and takes [place] at baseline as well. Offloader brace was ordered by myself, but this was not covered by insurance and the cost was very high so the patient elected not to buy it. She has a history of HTN, GERD, fibromyalgia, vitamin D deficiency, PTSD, chronic back pain with sciatica; NO history of DM. She has a history of MRSA infection in her left foot. Surgical history includes b/l knee arthroscopy, hysterectomy, ORIF b/l DRF, cholecystectomy. She is and lives with her ; she does not work. Their home is one level and she feels she has good support at home; transportation is often an issue, however. She is a smoker but denies alcohol use. BMI is 42.9; weight was measured in the office today. The st eroid injection she received at her last visit with me on 03/17/2019 was ineffective; she would like to discuss surgical options for her knee. The patient has exhausted conservative treatment for knee arthritis, consisting of: ice, activity modification, NSAIDs, tylenol, intra-articular steroid injection, hyaluronic acid injections, OTC bracing, and physical therapy. The pain has become so severe that it is inhibiting her ability to perform ADLs and is adversely affecting her quality of life. Monica discussed surgical options with the patient and have recommended total knee arthroplasty. We discussed at length the surgical technique and expected perioperative course, including length of hospitalization, need for postoperative physical therapy, use of anticoagulants, expected level of pain, and total length of recovery. I discussed her increased risk for infection given a history of MRSA infection and recent CSI, and overall increased risk of livan-operative complication given her increased BMI. I also explained the potential risks of surgery, including bleeding, infection, fracture, wound healing complications, need for revision surgery, continued pain post-operatively, DVT/PE, and risks of both general and regional anesthesia, including nerve damage, heart attack, stroke and even . The patient vocalized understanding of these risks and has agreed to proceed with surgery; informed consent was obtained. She obtained medical clearance from her primary care physician. R TKA was performed 05/23/19 without complication. Hospital Course Hospital Course: The patient was admitted to the med-surg floor post-operatively where her home medications were restarted and both DVT/antibiotic prophylaxis ordered. She wore SCDs and used an IS throughout her stay. Larissa was d/c on POD 1. She tolerated PO intake and had good UOP throughout her stay. Vitals remained stable and labs within acceptable limits. She was evaluated by her PCP's team and found to be medically appropriate for d/c on POD 2. Objective Vital signs: Temp Pulse Resp BP Pulse Ox 98.7 F 125 H 17 99/56 L 93 L 05/25/19 12:00 05/25/19 12:00 05/25/19 12:00 05/25/19 12:00 05/25/19 12:00 - *Routine HEENT Exam Head: Present: normocephalic Eye: Present: EOMI ENT: Present: mucous membranes moist - *Routine Respiratory Exam Present: CTA bilaterally - *Routine Cardiovascular Exam Present: tachycardia - *Routine Abdominal Exam Present: soft. Absent: tenderness - *Routine Extremities Exam Comments: RLE dressings c/d/i, no strikethrough dressing removed, incision c/d/i w/o erythema or active drainage mild blistering of proximal tibia, well lateral to incision; most likely due to swelling moderate soft tissue swelling R knee +DF/PF/EHL RLE SILT distally RLE R calf soft, compressible, non-tender palpable pedal pulses RLE, foot warm - *Routine Skin Exam Present: warm - *Routine Neurological Exam Present: alert, oriented X3, moving all extremities, normal tone, hearing grossly intact, normal speech. Absent: sensory deficit, motor deficit, altered mental status Results Labs on day of discharge: Labs from last 24 hours 05/24/19 05/24/19 05/24/19 23:55 23:55 23:55 WBC 12.4 H RBC 3.38 L Hgb 9.5 L Hct 30.5 L MCV 90.3 MCH 28.1 MCHC 31.1 L RDW 15.9 Plt Count 285 MPV 9.4 Neut % (Auto) 75.9 Lymph % (Auto) 17.7 [place] % (Auto) 4.9 Eos % (Auto) 1.2 Baso % (Auto) 0.3 Neut # (Auto) 9.4 H Lymph # (Auto) 2.2 [place] # (Auto) 0.6 Eos # (Auto) 0.1 Baso # (Auto) 0.0 Sodium 134 L Potassium 3.8 Chloride 104 Carbon Dioxide 26 Anion Gap 7.8 BUN 12 D Creatinine 1.15 H Estimated Creat Clear 54 Estimated GFR 51 L Est GFR ( Amer) 62 Glucose 104 Lactate 1.5 Calcium 9.7 DS: Diagnosis - Discharge Diagnosis (1) Arthritis of knee, degenerative Status: Acute (2) Total knee replacement status Status: Acute Discharge Plan - Patient Discharge Instructions ACTIVITY: Continue current activity DIET: continue same diet Additional Instructions: detailed d/c instruction sheet given to the patient -- continue WBAT RLE using RW, continue home exercises as dictated by PT -- ice R knee frequently, elevate when not ambulatory, keep straight with pillow under ankle -- may shower starting POD 3 -- change dressing once daily -- continue lovenox x2 weeks, then transition to 1 aspirin daily x1 month -- pain Rx given at discharge -- f/u with Dr. Brown at 2 weeks post-op -- outpatient physical therapy to start Wednesday05/26/2019 Patient Instructions: Knee Replacement, DI for Knee Replacement, DI for Surgical Site Infection - Follow up Plan Follow up with: Kiesha Brown MD [Physician] - 06/05/19 2:15 pm (x rays prior to appt appointment to start physical therapy 05/26 at 2:00) Adonis Hess MD [Referring] - 2 weeks Disposition: Home, Self-Shelter Medications: Home Medications Medication Instructions Recorded Confirmed Type budesonide-formoterol HFA 160 1 puff INHALATION DAILY #10 g 09/14/18 05/23/19 Rx mcg-4.5 mcg/actuation aerosol inhaler Meloxicam 15 mg PO DAILY 12/02/18 05/23/19 History omeprazole 20 mg tablet,delayed 20 mg PO BID #180 tab 03/07/19 05/23/19 Rx release ranitidine 150 mg tablet 150 mg PO BID #180 tab 03/07/19 05/23/19 Rx ondansetron 8 mg disintegrating 8 mg PO Q8H PRN #30 tab 05/05/19 05/23/19 Rx tablet alprazolam 0.5 mg tablet 0.5 mg PO BID #60 tab 05/08/19 05/23/19 Rx gabapentin 600 mg tablet 600 mg PO QID #120 tab 05/08/19 05/23/19 Rx cholecalciferol (vitamin D3) 5,000 5,000 unit PO DAILY #90 cap 05/15/19 05/23/19 Rx unit capsule Albuterol Sulfate [Ventolin HFA] 1 puff IH DAILY 05/23/19 05/23/19 History Lisinopril [Lisinopril 10mg Tab] 10 mg PO DAILY 05/23/19 05/23/19 History Quetiapine Fumarate 400 mg PO HS 05/23/19 05/23/19 History Quetiapine Fumarate [Seroquel 100 mg PO HS 05/23/19 05/23/19 History 100mg tablet] Enoxaparin Sodium [Lovenox 30 mg SQ Q12H 13 Days syringe 05/25/19 Rx 30mg/0.3mL syringe] Oxycodone HCl/Acetaminophen 1 each PO Q12 PRN 14 Days #28 tab 05/25/19 Rx [Oxycodone W/Apap 325mg Tablet] Prescriptions/Medication Reconciliation: New Lisinopril [Zestril 10mg Tab] 10 mg PO DAILY tablet Oxycodone HCl/Acetaminophen [Oxycodone W/Apap 325mg Tablet] 1 each PO Q12 PRN 14 Days #28 tab PRN Reason: Moderate To Severe Pain Enoxaparin Sodium [Lovenox 30mg/0.3mL syringe] 30 mg SQ Q12H 13 Days syringe Continued budesonide-formoterol HFA 160 mcg-4.5 mcg/actuation aerosol inhaler 1 puff INHALATION DAILY #10 g omeprazole 20 mg tablet,delayed release 20 mg PO BID #180 tab ranitidine 150 mg tablet 150 mg PO BID #180 tab ondansetron 8 mg disintegrating tablet 8 mg PO Q8H PRN #30 tab PRN Reason: nausea and vomiting gabapentin 600 mg tablet 600 mg PO QID #120 tab cholecalciferol (vitamin D3) 5,000 unit capsule 5,000 unit PO DAILY #90 cap alprazolam 0.5 mg tablet 0.5 mg PO BID #60 tab Lisinopril [Lisinopril 10mg Tab] 10 mg PO DAILY Quetiapine Fumarate 400 mg PO HS Albuterol Sulfate [Ventolin HFA] 1 puff IH DAILY Quetiapine Fumarate [Seroquel 100mg tablet] 100 mg PO HS Discontinued Meloxicam 15 mg PO DAILY - Problem Reconciliation Problems Reviewed?: Yes
[2019-05-26 05:06] LABS: Basophils % 0.2 % (0.1-2.0); Eosinophils # 0.2 K/mm3 (0.0-0.4); Eosinophils % 2.1 % (0.1-12.0); Hemoglobin 8.2 g/dL (12.2-16.2); Lymphocytes % 19.9 % (10-50); Mean Corpuscular HGB Conc 31.3 g/dL (31.8-35.4); Mean Corpuscular Volume 90.3 fl (81-99); Mean Platelet Volume 8.5 fl (7.4-10.4); Monocytes # 0.7 K/mm3 (0.1-1.0); Monocytes % 7.4 % (1.7-9.3); Neutrophils # 6.9 K/mm3 (1.8-7.8); Neutrophils % 70.4 % (37.0-80.0); Platelet Count 282 K/mm3 (142-424); Red Blood Count 2.89 M/mm3 (4.20-5.40); Red Cell Distribution Width 16.1 % (11.5-17.5); White Blood Count 9.8 K/mm3 (4.8-10.8)
[2019-05-26 05:15] LABS: Anion Gap 12.9 mEq/L (5-15); Blood Urea Nitrogen 18 mg/dL (7-18); Carbon Dioxide 23 mmol/L (21.0-32.0); Chloride 102 mmol/L (98-107); Glucose 101 mg/dL (74-106); Sodium 134 mmol/L (136-145)
[2019-05-26 05:23] LABS: ABG Base Excess -3.9 mmol/L (-2.4-2.3); ABG HCO3 21.6 mmhg (22.0-26.0); ABG Oxygen Saturation 97 % (90-100); ABG PCO2 39.7 mmhg (35.0-45.0); ABG PH 7.35 mmol/L (7.35-7.45); ABG PO2 104.3 mmhg (80-100); ABG TCO2 22.8 mmhg (23-27)
[2019-05-26 05:27] LABS: Allen's Test Patient Unable; Oxygen 2lpm nc %
[2019-05-26 05:30] LABS: Microscopic, Urine URINE MICROSCOPIC (MICROSCOPIC)
[2019-05-26 05:32] LABS: Appearance,Urine CLEAR (Clear); Bilirubin,Urine Negative (Negative); Blood, Urine Negative (Negative); Color,Urine YELLOW (Yellow); Glucose,Urine (UA) Negative (Negative); Ketones,Urine Negative (Negative); Leukocyte Esterase,Urine Negative (Negative); Protein,Urine Negative (Negative); Specific Gravity, Urine 1.025 (1.005-1.030)
[2019-05-26 05:39] LABS: Bacteria,Urine 1+ /lpf; Mucus,Urine 1+ /lpf
--- NOTE | 2019-05-26 06:38 | Progress Note ---
Internal Medicine - PN: Subj *Date: 05/26/19 *Time: 07:04 Interval history: pt with persistent sinus tachycardia with low bp - pt with recent knee surg and had recent v/q scan - no chest pain and no def sob but has dec loc but had recent meds and is arousable - ekg showed st and was unchanged from recent ekg except rate by my review - cxr was increased changes and marjan proceed with ct chest for pe - pt with severe sepsis with organ dysfuntion with dec bp - no pul emboli Exam Vital signs and Labs for Last 24 Hours: Temp Pulse Resp BP Pulse Ox 100.3 F H 136 H 15 78/52 L 86 L 05/26/19 04:40 05/26/19 04:40 05/26/19 04:40 05/26/19 04:40 05/26/19 04:40 Laboratory Results - last 24 hr 05/26/19 04:55: WBC 9.8, RBC 2.89 L, Hgb 8.2 L, Hct 26.0 L, MCV 90.3, MCH 28.3, MCHC 31.3 L, RDW 16.1, Plt Count 282, MPV 8.5, Neut % (Auto) 70.4, Lymph % (Auto) 19.9, [place] % (Auto) 7.4, Eos % (Auto) 2.1, Baso % (Auto) 0.2, Neut # (Auto) 6.9, Lymph # (Auto) 2.0, [place] # (Auto) 0.7, Eos # (Auto) 0.2, Baso # (Auto) 0.0 05/26/19 04:55: Sodium 134 L, Potassium 3.9, Chloride 102, Carbon Dioxide 23, Anion Gap 12.9, BUN 18 D, Creatinine 1.60 H D, Estimated Creat Clear 73, Estimated GFR 35 L, Est GFR ( Amer) 43 L D, Glucose 101, Calcium 9.0, Troponin I < 0.02 05/26/19 05:00: Urine Color Yellow, Urine Appearance Clear, Urine pH 6.0, Ur Specific [place] 1.025, Urine Protein Negative, Urine Glucose (UA) Negative, Urine Ketones Negative, Urine Blood Negative, Urine Nitrate Negative, Urine Bilirubin Negative, Urine Urobilinogen 1.0, Ur Leukocyte Esterase Negative, Urine RBC 3-5, Urine WBC 3-5, Ur Squamous Epith Cells 3-5, Urine Bacteria 1+, Urine Mucus 1+ 05/26/19 05:16: Specimen Source Left radial, O2 % 2lpm nc, ABG pH 7.35, ABG pCO2 39.7, ABG pO2 104.3 H, ABG HCO3 21.6 L, ABG Total CO2 22.8 L, ABG O2 Saturation 97, ABG Base Excess -3.9 L, Ferdinand Test Patient unable I & O for Last 24 hours: Intake & Output 05/23/19 05/24/19 05/25/19 05/26/19 11:59 11:59 11:59 11:59 Intake Total 2588 / 2588 420 / 420 120 / 120 Output Total 1200 / 1200 Balance 1388 / 1388 420 / 420 120 / 120 Weight 250 lb 261 lb 3.012 oz 225 lb 9 oz 266 lb 9 oz - Constitutional no acute distress, obese, somnolent - *Routine HEENT Exam Head: Present: normocephalic Eye: Present: EOMI, PERRL ENT: Present: mucous membranes dry - *Routine Neck Exam Present: supple. Absent: JVD - *Routine Respiratory Exam Present: decreased breath sounds - *Routine Cardiovascular Exam Present: tachycardia - *Routine Extremities Exam Comments: recent surg rt lower leg - *Routine Skin Exam Present: intact - *Routine Neurological Exam Present: CN II-XII intact. Absent: motor deficit - Routine Psychiatric Exam Present: unable to assess Assessment and Plan (1) Arthritis of knee, degenerative Current visit: Yes Status: Acute Category: Medical Code(s): M17.10 - Unilateral primary osteoarthritis, unspecified knee (2) Total knee replacement status Current visit: Yes Status: Acute Category: Surgical Code(s): Z96.659 - Presence of unspecified artificial knee joint (3) Tachycardia Current visit: Yes Status: Acute Category: Medical Code(s): R00.0 - Tachycardia, unspecified (4) Obesity Current visit: Yes Status: Acute Qualifiers: Obesity type: due to excess calories Obesity classification: adult class 3 (BMI >= 40) Serious obesity comorbidity presence: with serious comorbidity Body mass index: BMI 45.0-49.9 Qualified Code(s): E66.01 - Morbid (severe) obesity due to excess calories; Z68.42 - Body mass index (BMI) 45.0-49.9, adult Category: Medical Code(s): E66.9 - Obesity, unspecified (5) Anemia Current visit: Yes Status: Acute Qualifiers: Anemia type: unspecified type Qualified Code(s): D64.9 - Anemia, unspecified Category: Medical Code(s): D64.9 - Anemia, unspecified (6) Renal insufficiency Current visit: Yes Status: Acute Category: Medical Code(s): N28.9 - Disorder of kidney and ureter, unspecified (7) Severe sepsis Current visit: Yes Status: Acute Category: Medical Code(s): A41.9 - Sepsis, unspecified organism; R65.20 - Severe sepsis without septic shock (8) Sepsis-associated organ dysfunction Current visit: Yes Status: Acute Category: Medical Code(s): A41.9 - Sepsis, unspecified organism; R65.20 - Severe sepsis without septic shock
--- NOTE | 2019-05-26 07:04 | Sepsis Event Note ---
[facility] Tissue Perfusion Eval Sepsis Re-Evaluation Performed: Yes Date Performed: 05/26/19 Time Performed: 07:03
--- NOTE | 2019-05-26 08:11 | Electrocardiograph Report ---
APPROVED REPORT Exam: Resting ECG HR:128 bpm ECG Measurements Heart Rate 128 AXES KS 176 P 52 QRSd 82 QRS -20 QT 288 T48 QTc 420 <Conclusion> Sinus tachycardia Low voltage QRS Isolated Q wave in lead 3, poor R-wave progression, unchanged Abnormal ECG Electronically signed by : Abhi Shannon, 05/26/2019 08:11:22
--- NOTE | 2019-05-26 08:19 | Consult Report ---
History of Present Illness Consult date: 05/26/19 Requesting physician: Campos Tucker Chief complaint: Sepsis Additional Medical History:: 1. HTN 2. halfway smoker A. COPD 3. Obesity 4. Suspected TIARA 5. Insomnia 6. s/p Right Total Knee arthroplasty, 05/2019 7. GERD 8. PTSD by history A. Anxiety/Depression History of present illness: 43-year-old black female in the hospital for right knee arthroplasty was on the way to being discharged home when the nursing staff became concerned about the patient's alertness. Patient would not off apparently between questions. She has been tachycardic throughout her stay. VQ scan was obtained showing intermediate risk for pulmonary embolus with follow-up CT being negative for pulmonary embolus but with evidence of bibasilar, perihilar and upper lobe abnormalities with concern for infiection or edema. Fluid-filled distended esophagus noted. Patient's blood pressure noted to be hypotensive and IV fluids were started. Patient's blood pressure has improved although her alertness continues to be reduced. Patient did receive high-dose Seroquel, Dilaudid, Xanax and hydrocodone last evening which likely is contributing to her hypotension and depressed alertness state. EKG shows sinus tachycardia with low voltage and poor R wave progression. Unchanged from previous tracings. Lactate and troponin are both within normal limits. ABG without significant abnormalities. Cardiology consulted for evaluation. [facility] History Medical History: Reports:: Anxiety, Chronic Obstructive Pulmonary Disease (COPD), Depression, Gastroesophageal Reflux Disease(GERD), Hiatal Hernia, Lung Disease, MRSA (toe) Denies:: Cancer, Diabetes Mellitus Type 1, Diabetes Mellitus Type 2, Internal Pacemaker, Seizures *Have you ever received a pneumonia vaccine?: Yes *Have you received a flu vaccine this season?: Yes Other Medical History: Reports: Arthritis, Fibromyalgia, Other. Denies: Blood Transfusion Reaction Anesthesia experience/problems:: Wakes up angry Laterality Cases: Bilateral: Arthroscopy Knee Other Surgeries: Yes: No Previous Surgery, Cholecystectomy, Colonoscopy, EGD, Hysterectomy-Total, Tubal Ligation, Other. No: Pacemaker Amputation: No Fractures: Yes (aisha wrist) - *Social History Educational Level: Attended Grade School Smoking Status: Current every day smoker Tobacco Type: cigarettes # Packs/Day (cigarettes): 1 Alcohol Intake: never Alcohol Intake Frequency:: other Substance Use Type: denies use *Occupational Status:: unemployed Housing: apartment Household Members: spouse *Travel in the last 8 weeks: None - Psychiatric History Pschychiatric History:: Reports:: Anxiety, Depression Family Hx:: Diabetes Meds Home Medications Medication Instructions Recorded Confirmed Type budesonide-formoterol HFA 160 1 puff INHALATION DAILY #10 g 09/14/18 05/23/19 Rx mcg-4.5 mcg/actuation aerosol inhaler Meloxicam 15 mg PO DAILY 12/02/18 05/23/19 History omeprazole 20 mg tablet,delayed 20 mg PO BID #180 tab 03/07/19 05/23/19 Rx release ranitidine 150 mg tablet 150 mg PO BID #180 tab 03/07/19 05/23/19 Rx ondansetron 8 mg disintegrating 8 mg PO Q8H PRN #30 tab 05/05/19 05/23/19 Rx tablet alprazolam 0.5 mg tablet 0.5 mg PO BID #60 tab 05/08/19 05/23/19 Rx gabapentin 600 mg tablet 600 mg PO QID #120 tab 05/08/19 05/23/19 Rx cholecalciferol (vitamin D3) 5,000 5,000 unit PO DAILY #90 cap 05/15/19 05/23/19 Rx unit capsule Albuterol Sulfate [Ventolin HFA] 1 puff IH DAILY 05/23/19 05/23/19 History Lisinopril [Lisinopril 10mg Tab] 10 mg PO DAILY 05/23/19 05/23/19 History Quetiapine Fumarate 400 mg PO HS 05/23/19 05/23/19 History Quetiapine Fumarate [Seroquel 100 mg PO HS 05/23/19 05/23/19 History 100mg tablet] Enoxaparin Sodium [Lovenox 30 mg SQ Q12H 13 Days syringe 05/25/19 Rx 30mg/0.3mL syringe] Oxycodone HCl/Acetaminophen 1 each PO Q12 PRN 14 Days #28 tab 05/25/19 Rx [Oxycodone W/Apap 325mg Tablet] Allergies Allergy/AdvReac Type Severity Reaction Status Date / Time No Known Allergies Allergy Verified 05/15/19 14:13 Review of Systems - Review of Systems Review of systems:: unable to obtain Pt snoring/sleeping soundly. Questions answered by nurse and - *Neurologic Denies weakness Exam Vital signs and Labs for Last 24 Hours: Temp Pulse Resp BP Pulse Ox 100.3 F H 136 H 15 78/52 L 86 L 05/26/19 04:40 05/26/19 04:40 05/26/19 04:40 05/26/19 04:40 05/26/19 04:40 Laboratory Results - last 24 hr 05/26/19 04:55: WBC 9.8, RBC 2.89 L, Hgb 8.2 L, Hct 26.0 L, MCV 90.3, MCH 28.3, MCHC 31.3 L, RDW 16.1, Plt Count 282, MPV 8.5, Neut % (Auto) 70.4, Lymph % (Auto) 19.9, [place] % (Auto) 7.4, Eos % (Auto) 2.1, Baso % (Auto) 0.2, Neut # (Auto) 6.9, Lymph # (Auto) 2.0, [place] # (Auto) 0.7, Eos # (Auto) 0.2, Baso # (Auto) 0.0 05/26/19 04:55: Sodium 134 L, Potassium 3.9, Chloride 102, Carbon Dioxide 23, Anion Gap 12.9, BUN 18 D, Creatinine 1.60 H D, Estimated Creat Clear 73, Estimated GFR 35 L, Est GFR ( Amer) 43 L D, Glucose 101, Calcium 9.0, Troponin I < 0.02 05/26/19 05:00: Urine Color Yellow, Urine Appearance Clear, Urine pH 6.0, Ur Specific [place] 1.025, Urine Protein Negative, Urine Glucose (UA) Negative, Urine Ketones Negative, Urine Blood Negative, Urine Nitrate Negative, Urine Bilirubin Negative, Urine Urobilinogen 1.0, Ur Leukocyte Esterase Negative, [place] RBC 3-5, Urine WBC 3-5, Ur Squamous Epith Cells 3-5, Urine Bacteria 1+, Urine Mucus 1+ 05/26/19 05:16: Specimen Source Left radial, O2 % 2lpm nc, ABG pH 7.35, ABG pCO2 39.7, ABG pO2 104.3 H, ABG HCO3 21.6 L, ABG Total CO2 22.8 L, ABG O2 Saturation 97, ABG Base Excess -3.9 L, Ferdinand Test Patient unable 05/26/19 07:40: Lactate 0.5 I & O for Last 24 hours: Intake & Output 05/23/19 05/24/19 05/25/19 05/26/19 11:59 11:59 11:59 11:59 Intake Total 2588 / 2588 420 / 420 120 / 120 Output Total 1200 / 1200 Balance 1388 / 1388 420 / 420 120 / 120 Weight 250 lb 261 lb 3.012 oz 225 lb 9 oz 266 lb 9 oz - *Routine Neck Exam Present: supple. Absent: JVD, carotid bruit - *Routine Respiratory Exam Present: decreased breath sounds, rhonchi. Absent: accessory muscle use, rales, wheezes - *Routine Cardiovascular Exam Present: S3, tachycardia. Absent: murmur, gallop, rubs - *Routine Abdominal Exam Present: soft. Absent: tenderness, distended, guarding - *Routine Extremities Exam Present: edema. Absent: calf tenderness - *Routine Neurological Exam Absent: alert sleeping/snoring Assessment and Plan (1) Arthritis of knee, degenerative Current visit: Yes Status: Acute Category: Medical Code(s): M17.10 - Unilateral primary osteoarthritis, unspecified knee (2) Total knee replacement status Current visit: Yes Status: Acute Category: Surgical Code(s): Z96.659 - Presence of unspecified artificial knee joint (3) Tachycardia Current visit: Yes Status: Acute Category: Medical Code(s): R00.0 - Tachycardia, unspecified (4) Obesity Current visit: Yes Status: Acute Qualifiers: Obesity type: due to excess calories Obesity classification: adult class 3 (BMI >= 40) Serious obesity comorbidity presence: with serious comorbidity Body mass index: BMI 45.0-49.9 Qualified Code(s): E66.01 - Morbid (severe) obesity due to excess calories; Z68.42 - Body mass index (BMI) 45.0-49.9, adult Category: Medical Code(s): E66.9 - Obesity, unspecified (5) Anemia Current visit: Yes Status: Acute Qualifiers: Anemia type: unspecified type Qualified Code(s): D64.9 - Anemia, unspecified Category: Medical Code(s): D64.9 - Anemia, unspecified (6) Renal insufficiency Current visit: Yes Status: Acute Category: Medical Code(s): N28.9 - Disorder of kidney and ureter, unspecified (7) Severe sepsis Current visit: Yes Status: Acute Category: Medical Code(s): A41.9 - Sepsis, unspecified organism; R65.20 - Severe sepsis without septic shock (8) Sepsis-associated organ dysfunction Current visit: Yes Status: Acute Category: Medical Code(s): A41.9 - Sepsis, unspecified organism; R65.20 - Severe sepsis without septic shock - Assessment and plan all Dx Assessment and Plan for all problems:: 1. Hypotension and somnolence. Combination of sedating medication, pain medication, anxiety medication and possible pulmonary infection/edema. Recommend reducing amounts of meds to allow her to be more awake. 2. Preliminary echo shows normal LVEF. Would reduce IVF and may need some IV lasix. 3. Would recommend switching lisinopril to metoprolol for heart rate and BP control. 4. Anemia, may benefit from transfusion. 5. Continue lovenox due to sedentary status and recent knee surgery.
--- NOTE | 2019-05-26 08:56 | Progress Note ---
Internal Medicine - PN: Subj *Date: 05/26/19 *Time: 08:52 Interval history: Patient laying in bed have an echo performed. Per staff fluids for sepsis protocol after being completed. Cardiology consult We will move patient to stepdown for closer monitoring of vital signs. Blood pressure after fluid boluses remains low. Will check with anesthesia to see if nerve block to knee will help with pain. In try to cut back on oral medications. Exam Vital signs and Labs for Last 24 Hours: Temp Pulse Resp BP Pulse Ox 98.4 F 131 H 14 92/58 L 97 05/26/19 08:00 05/26/19 08:00 05/26/19 08:00 05/26/19 08:00 05/26/19 08:00 Laboratory Results - last 24 hr 05/26/19 04:55: WBC 9.8, RBC 2.89 L, Hgb 8.2 L, Hct 26.0 L, MCV 90.3, MCH 28.3, MCHC 31.3 L, RDW 16.1, Plt Count 282, MPV 8.5, Neut % (Auto) 70.4, Lymph % (Auto) 19.9, [place] % (Auto) 7.4, Eos % (Auto) 2.1, Baso % (Auto) 0.2, Neut # (Auto) 6.9, Lymph # (Auto) 2.0, [place] # (Auto) 0.7, Eos # (Auto) 0.2, Baso # (Auto) 0.0 05/26/19 04:55: Sodium 134 L, Potassium 3.9, Chloride 102, Carbon Dioxide 23, Anion Gap 12.9, BUN 18 D, Creatinine 1.60 H D, Estimated Creat Clear 73, Estimated GFR 35 L, Est GFR ( Amer) 43 L D, Glucose 101, Calcium 9.0, Troponin I < 0.02 05/26/19 05:00: Urine Color Yellow, Urine Appearance Clear, Urine pH 6.0, Ur Specific [place] 1.025, Urine Protein Negative, Urine Glucose (UA) Negative, Urine Ketones Negative, Urine Blood Negative, Urine Nitrate Negative, Urine Bilirubin Negative, Urine Urobilinogen 1.0, Ur Leukocyte Esterase Negative, Urine RBC 3-5, Urine WBC 3-5, Ur Squamous Epith Cells 3-5, Urine Bacteria 1+, Urine Mucus 1+ 05/26/19 05:16: Specimen Source Left radial, O2 % 2lpm nc, ABG pH 7.35, ABG pCO2 39.7, ABG pO2 104.3 H, ABG HCO3 21.6 L, ABG Total CO2 22.8 L, ABG O2 Saturation 97, ABG Base Excess -3.9 L, Ferdinand Test Patient unable 05/26/19 07:40: Lactate 0.5 I & O for Last 24 hours: Intake & Output 05/23/19 05/24/19 05/25/19 05/26/19 11:59 11:59 11:59 11:59 Intake Total 2588 / 2588 420 / 420 120 / 120 Output Total 1200 / 1200 300 / 300 Balance 1388 / 1388 420 / 420 -180 / -180 Weight 250 lb 261 lb 3.012 oz 225 lb 9 oz 266 lb 9 oz - Constitutional mild distress, morbidly obese - *Routine HEENT Exam Head: Present: normocephalic, scalp tenderness Eye: Present: PERRL ENT: Present: mucous membranes moist - *Routine Neck Exam Present: supple. Absent: lymphadenopathy - *Routine Respiratory Exam Present: decreased breath sounds, wheezes - *Routine Cardiovascular Exam Present: RRR - *Routine Abdominal Exam Present: soft, normoactive bowel sounds. Absent: tenderness - *Routine Extremities Exam Absent: cyanosis, clubbing, edema Comments: Dressing to right knee - *Routine Skin Exam Comments: Dressing to right knee clean dry intact - *Routine Neurological Exam Present: alert - Routine Psychiatric Exam Present: normal affect Assessment and Plan (1) Arthritis of knee, degenerative Current visit: Yes Status: Acute Category: Medical Code(s): M17.10 - Unilateral primary osteoarthritis, unspecified knee (2) Total knee replacement status Current visit: Yes Status: Acute Category: Surgical Code(s): Z96.659 - Presence of unspecified artificial knee joint (3) Tachycardia Current visit: Yes Status: Acute Category: Medical Code(s): R00.0 - Tachycardia, unspecified (4) Obesity Current visit: Yes Status: Acute Qualifiers: Obesity type: due to excess calories Obesity classification: adult class 3 (BMI >= 40) Serious obesity comorbidity presence: with serious comorbidity Body mass index: BMI 45.0-49.9 Qualified Code(s): E66.01 - Morbid (severe) obesity due to excess calories; Z68.42 - Body mass index (BMI) 45.0-49.9, adult Category: Medical Code(s): E66.9 - Obesity, unspecified (5) Anemia Current visit: Yes Status: Acute Qualifiers: Anemia type: unspecified type Qualified Code(s): D64.9 - Anemia, unspecified Category: Medical Code(s): D64.9 - Anemia, unspecified (6) Renal insufficiency Current visit: Yes Status: Acute Category: Medical Code(s): N28.9 - Disorder of kidney and ureter, unspecified (7) Severe sepsis Current visit: Yes Status: Acute Category: Medical Code(s): A41.9 - Sepsis, unspecified organism; R65.20 - Severe sepsis without septic shock (8) Sepsis-associated organ dysfunction Current visit: Yes Status: Acute Category: Medical Code(s): A41.9 - Sepsis, unspecified organism; R65.20 - Severe sepsis without septic shock - Assessment and plan all Dx Assessment and Plan for all problems:: Rounded with Dr. Tucker all orders per Garrett
--- NOTE | 2019-05-26 11:40 | Electrocardiograph Report ---
APPROVED REPORT Exam: Resting ECG HR:141 bpm ECG Measurements Heart Rate 141 AXES QRSd 82 QRS -37 QT 370 T47 QTc 566 <Conclusion> Sinus tachycardia Left axis deviation Low voltage QRS Inferior infarct,old Poor R Wave Progression Abnormal ECG Electronically signed by : Moe Joyce, 05/26/2019 11:39:43
--- NOTE | 2019-05-26 13:53 | Progress Note ---
Subjective Date: 05/26/19 Time: 12:00 Principal diagnosis: s/p R TKA Interval history: The patient is drowsy but arousable and communicative this afternoon. She became difficult to arouse overnight and remains tachycardic with hypotension. Afebrile, no leukocytosis. PN: Obj Ex Vital signs: Temp Pulse Resp BP Pulse Ox 99.4 F 129 H 19 112/70 95 05/26/19 12:38 05/26/19 12:00 05/26/19 12:00 05/26/19 12:00 05/26/19 12:00 - Constitutional no acute distress - Routine HEENT Exam Head: Present: normocephalic Eye: Present: EOMI ENT: Present: mucous membranes moist - Routine Respiratory Exam Present: CTA bilaterally - Routine Cardiovascular Exam Present: tachycardia - Routine Abdominal Exam Present: soft. Absent: tenderness - Routine Extremities Exam Comments: RLE dressing c/d/i, no strikethrough mild blistering of proximal tibia, well lateral to incision; most likely due to swelling moderate soft tissue swelling R knee +DF/PF/EHL RLE SILT distally RLE R calf soft, compressible, non-tender palpable pedal pulses RLE, foot warm - Routine Skin Exam Present: warm - Routine Neurological Exam Present: alert, oriented X3, plantar reflex, normal tone, hearing grossly intact, normal speech. Absent: sensory deficit, motor deficit - Urinary Catheter Management Mcfarlane Cath placed during this visit: no Progress Note: A&P (1) Arthritis of knee, degenerative Status: Acute Current Visit: Yes (2) Total knee replacement status Status: Acute Current Visit: Yes (3) Tachycardia Status: Acute Current Visit: Yes (4) Obesity Status: Acute Current Visit: Yes (5) Anemia Status: Acute Current Visit: Yes (6) Renal insufficiency Status: Acute Current Visit: Yes (7) Severe sepsis Status: Acute Current Visit: Yes (8) Sepsis-associated organ dysfunction Status: Acute Current Visit: Yes Assessment and Plan for All Diagnoses:: 43yo F POD 3 s/p R TKA -- although sepsis criteria triggered, I do not believe the patient has an infection. She has been afebrile w/o leukocytosis, no physical exam findings of infection. She has been tachycardic with hypotension, which I believe is a combination of dehydration and oversedation with pain medications; she also has atelectasis. CT scan negative for PE. -- d/c narcotic pain medications -- continue IVF; mcfarlane in for I/O but recommend discontinuation DIXIE -- WBAT RLE, up ad janice with assist/RW -- continue PT/OT -- cryotherapy R knee -- DVT prophy: SCDs + lovenox (x2 weeks, then ASA x1 mo) -- encourage IS 10x/hr while awake; had the patient perform this in front of me today to demonstrate understanding -- I spoke with Dr. Ott and have placed a pain service consult for possible indwelling nerve block catheter for pain control -- the patient has been transferred to Dr. Tucker's service for medical management -- anticipate admission through the weekend
--- NOTE | 2019-05-26 14:42 | Cardiology Report ---
APPROVED REPORT EXAM: Comprehensive 2D, Doppler, and color-flow Echocardiogram Toolman: Ceci Navarro CRT Ht: 5 ft 4 in Wt: 266lbs BSA: 2.21 BP: 78/52 mmHg Indications: tachy, murmur, fever, s/p tkr, sepsis 2D Dimensions LVOT 1.99 cm (M/F) 1.5-2.5 M-Mode Dimensions RVDd 2.25 cm (0.9-2.6)LVDd 4.27 cm (3.5-5.7) LVDs 2.99 cm (3.5-5.7)IVSd 1.29 cm (0.6-1.1) PWd 1.16 cm (0.6-1.1)EF (Teich) 57.50% FS 30.00% EDV (Teich) 81.70 mL ESV (Teich) 34.70 mL Left Ventricle Left atrium is mildly enlarged, left ventricle is normal size, mild concentric left ventricular hypertrophy, hyperdynamic left ventricular systolic function, visually estimated ejection fraction over 65% with no regional wall motion abnormality. Diastolic parameters are inconclusive. Right Ventricle Right atrium and right ventricular mildly enlarged with normal contractility. Aortic Valve Aortic valve is minimally thickened and fibrosed, there is no aortic stenosis aortic insufficiency. Mitral Valve Mitral valve is grossly normal, there is no mitral stenosis, there is mild mitral regurgitation. Tricuspid Valve Tricuspid valve is grossly normal, there is mild tricuspid regurgitation. Tricuspid regurgitation jet velocity is inadequate for calculation of right ventricular systolic pressure. Pulmonic Valve Pulmonic valve is poorly visualized. Great Vessels Aortic root is normal size. Pericardium No significant pericardial effusion noted. Conclusion 1. Mildly enlarged left atrium, normal left ventricular size, mild concentric left ventricular hypertrophy, hyperdynamic left ventricular systolic function, visually estimated ejection fraction over 65% with no regional wall motion abnormality, diastolic parameters are inconclusive. 2. Mildly enlarged right ventricle with normal contractility. 3. Mild mitral and tricuspid regurgitation. 4. No significant pericardial effusion noted. Electronically signed by : Ramin Arboleda, 05/26/2019 14:41:54
--- NOTE | 2019-05-26 17:15 | Consult Report ---
Assessment and Plan (1) Arthritis of knee, degenerative Current visit: Yes Status: Acute Category: Medical Code(s): M17.10 - Unilateral primary osteoarthritis, unspecified knee (2) Total knee replacement status Current visit: Yes Status: Acute Category: Surgical Code(s): Z96.659 - Presence of unspecified artificial knee joint (3) Tachycardia Current visit: Yes Status: Acute Category: Medical Code(s): R00.0 - Tachycardia, unspecified (4) Obesity Current visit: Yes Status: Acute Qualifiers: Obesity type: due to excess calories Obesity classification: adult class 3 (BMI >= 40) Serious obesity comorbidity presence: with serious comorbidity Body mass index: BMI 45.0-49.9 Qualified Code(s): E66.01 - Morbid (severe) obesity due to excess calories; Z68.42 - Body mass index (BMI) 45.0-49.9, adult Category: Medical Code(s): E66.9 - Obesity, unspecified (5) Anemia Current visit: Yes Status: Acute Qualifiers: Anemia type: unspecified type Qualified Code(s): D64.9 - Anemia, unspecified Category: Medical Code(s): D64.9 - Anemia, unspecified (6) Renal insufficiency Current visit: Yes Status: Acute Category: Medical Code(s): N28.9 - Disorder of kidney and ureter, unspecified (7) Severe sepsis Current visit: Yes Status: Acute Category: Medical Code(s): A41.9 - Sepsis, unspecified organism; R65.20 - Severe sepsis without septic shock (8) Sepsis-associated organ dysfunction Current visit: Yes Status: Acute Category: Medical Code(s): A41.9 - Sepsis, unspecified organism; R65.20 - Severe sepsis without septic shock - Assessment and plan all Dx Assessment and Plan for all problems:: We will plan on right single shot adductor canal block to give her some pain relief. HPI - Data of Consult Patient: new to practice Consult date: 05/26/19 Requesting Physician: Campos Tucker MD Primary Care Provider: Campos Tucker MD - Consult Narrative Reason for consult: Increasing pain after right total knee replacement History of present illness: Ms. Madsen is a 43 year old female who had right total knee replacement with increasing pain after surgery. She did have one nerve block which was temporary however she required oral narcotics after surgery and was overmedicated. She still has some increasing pain and we were asked to perform a continuous nerve block. However there is no system in place where we can provide a continuous nerve block. We will do a long-acting nerve block single shot with bupivacaine 0.25% today. CC: Campos Tucker MD [facility] History I have reviewed the patient's past medical history: Yes Medical History: Reports:: Anxiety, Chronic Obstructive Pulmonary Disease (COPD), Depression, Gastroesophageal Reflux Disease(GERD), Hiatal Hernia, Lung Disease, MRSA (toe) Denies:: Cancer, Diabetes Mellitus Type 1, Diabetes Mellitus Type 2, Internal Pacemaker, Seizures *Have you ever received a pneumonia vaccine?: No *Have you received a flu vaccine this season?: No Other Medical History: Reports: Arthritis, Fibromyalgia, Other. Denies: Blood Transfusion Reaction Anesthesia experience/problems:: Wakes up angry Laterality Cases: Bilateral: Arthroscopy Knee Other Surgeries: Yes: No Previous Surgery, Cholecystectomy, Colonoscopy, EGD, Hysterectomy-Total, Tubal Ligation, Other. No: Pacemaker Amputation: No Fractures: Yes (aisha wrist) - *Social History Educational Level: Attended Grade School Smoking Status: Current every day smoker Tobacco Type: cigarettes # Packs/Day (cigarettes): 1 Alcohol Intake: never Alcohol Intake Frequency:: other Substance Use Type: denies use *Occupational Status:: unemployed Housing: apartment Household Members: spouse *Travel in the last 8 weeks: None - Psychiatric History Pschychiatric History:: Reports:: Anxiety, Depression Family Hx:: Diabetes Review of Systems - Review of Systems Review of systems:: pertinent systems reviewed and negative unless documented below - *Musculoskeletal Reports joint pain, Reports joint swelling, Reports limited joint movement - *Neurologic Denies weakness Meds Home Medications Medication Instructions Recorded Confirmed Type budesonide-formoterol HFA 160 1 puff INHALATION DAILY #10 g 09/14/18 05/23/19 Rx mcg-4.5 mcg/actuation aerosol inhaler Meloxicam 15 mg PO DAILY 12/02/18 05/23/19 History omeprazole 20 mg tablet,delayed 20 mg PO BID #180 tab 03/07/19 05/23/19 Rx release ranitidine 150 mg tablet 150 mg PO BID #180 tab 03/07/19 05/23/19 Rx ondansetron 8 mg disintegrating 8 mg PO Q8H PRN #30 tab 05/05/19 05/23/19 Rx tablet alprazolam 0.5 mg tablet 0.5 mg PO BID #60 tab 05/08/19 05/23/19 Rx gabapentin 600 mg tablet 600 mg PO QID #120 tab 05/08/19 05/23/19 Rx cholecalciferol (vitamin D3) 5,000 5,000 unit PO DAILY #90 cap 05/15/19 05/23/19 Rx unit capsule Albuterol Sulfate [Ventolin HFA] 1 puff IH DAILY 05/23/19 05/23/19 History Lisinopril [Lisinopril 10mg Tab] 10 mg PO DAILY 05/23/19 05/23/19 History Quetiapine Fumarate 400 mg PO HS 05/23/19 05/23/19 History Quetiapine Fumarate [Seroquel 100 mg PO HS 05/23/19 05/23/19 History 100mg tablet] Enoxaparin Sodium [Lovenox 30 mg SQ Q12H 13 Days syringe 05/25/19 Rx 30mg/0.3mL syringe] Oxycodone HCl/Acetaminophen 1 each PO Q12 PRN 14 Days #28 tab 05/25/19 Rx [Oxycodone W/Apap 325mg Tablet] Allergies Allergy/AdvReac Type Severity Reaction Status Date / Time No Known Allergies Allergy Verified 05/26/19 12:05 Objective Vital signs: Temp Pulse Resp BP Pulse Ox 99.4 F 128 H 20 110/62 99 05/26/19 12:38 05/26/19 17:09 05/26/19 17:09 05/26/19 17:09 05/26/19 17:09 - *Routine Extremities Exam Present: edema, tenderness
--- NOTE | 2019-05-26 17:16 | Procedure Note ---
- Procedure Date: 05/26/19 Time: 17:15 Anesthesiologist:: Espinoza Ott MD Complications:: None Pre-procedure Diagnosis:: Status post right total knee replacement Post-procedure Diagnosis:: Same Indications for Procedure:: This patient is a pleasant 43-year-old -[place] female who has increasing pain of her right knee status post right total knee replacement. We were asked to perform a continuous nerve block however there is no system in place for treatment we can perform a continuous nerve block so we will do a long-acting single shot nerve block with bupivacaine 0.25% today. Procedure Details:: Right abductor canal nerve block Informed consent was obtained the risk and benefits of the procedure was explained to the patient. Patient was taken to the procedure room. The right groin was prepped using ChloraPrep. Under fluoroscopic guidance a 20-gauge needle was inserted and we injected 30 mL's bupivacaine 0.25% into the area of the right femoral nerve in the adductor canal. Vision tolerated the procedure well with no complications she was taken back to her room with good relief of pain symptoms of her right knee. Plan and Disposition:: Thank you for the consult we will continue to follow with you.
--- NOTE | 2019-05-27 09:16 | Progress Note ---
Internal Medicine - PN: Subj *Date: 05/27/19 *Time: 09:19 Interval history: doing better - more alert but still with inc hr - labs pending - had nerve block- discussed with card and will increase beta manny and agree that stopping abx at this time is reasonable Exam Vital signs and Labs for Last 24 Hours: Temp Pulse Resp BP Pulse Ox 98.8 F 113 H 20 108/70 L 97 05/27/19 08:00 05/27/19 07:00 05/27/19 07:00 05/27/19 07:00 05/27/19 07:00 I & O for Last 24 hours: Intake & Output 05/24/19 05/25/19 05/26/19 05/27/19 11:59 11:59 11:59 11:59 Intake Total 2588 / 2588 420 / 420 120 / 120 1240 / 1240 Output Total 1200 / 1200 300 / 300 4550 / 4550 Balance 1388 / 1388 420 / 420 -180 / -180 -3310 / -3310 Weight 261 lb 3.012 oz 225 lb 9 oz 266 lb 9 oz 266 lb 9.01 oz Microbiology Reports for the Last 24 Hours: Microbiology 05/24/19 07:45 Urine,Clean Catch Urine Culture - Final NO GROWTH AFTER 48 HOURS 05/24/19 23:55 Blood Blood Culture - Preliminary NO GROWTH AFTER 48 HOURS 05/24/19 23:55 Blood Blood Culture - Preliminary NO GROWTH AFTER 48 HOURS - Constitutional no acute distress, obese - *Routine HEENT Exam Head: Present: normocephalic Eye: Present: EOMI, PERRL ENT: Present: mucous membranes dry - *Routine Neck Exam Absent: JVD - *Routine Respiratory Exam Present: decreased breath sounds - *Routine Cardiovascular Exam Present: RRR, tachycardia - *Routine Extremities Exam Comments: no acute changes - *Routine Skin Exam Present: intact - *Routine Neurological Exam Present: alert, oriented X3, CN II-XII intact - Routine Psychiatric Exam Present: normal affect Assessment and Plan (1) Arthritis of knee, degenerative Current visit: Yes Status: Acute Category: Medical Code(s): M17.10 - Unilateral primary osteoarthritis, unspecified knee (2) Total knee replacement status Current visit: Yes Status: Acute Category: Surgical Code(s): Z96.659 - Presence of unspecified artificial knee joint (3) Tachycardia Current visit: Yes Status: Acute Category: Medical Code(s): R00.0 - Tachycardia, unspecified (4) Obesity Current visit: Yes Status: Acute Qualifiers: Obesity type: due to excess calories Obesity classification: adult class 3 (BMI >= 40) Serious obesity comorbidity presence: with serious comorbidity Body mass index: BMI 45.0-49.9 Qualified Code(s): E66.01 - Morbid (severe) obesity due to excess calories; Z68.42 - Body mass index (BMI) 45.0-49.9, adult Category: Medical Code(s): E66.9 - Obesity, unspecified (5) Anemia Current visit: Yes Status: Acute Qualifiers: Anemia type: unspecified type Qualified Code(s): D64.9 - Anemia, unspecified Category: Medical Code(s): D64.9 - Anemia, unspecified (6) Renal insufficiency Current visit: Yes Status: Acute Category: Medical Code(s): N28.9 - Disorder of kidney and ureter, unspecified (7) Severe sepsis Current visit: Yes Status: Acute Category: Medical Code(s): A41.9 - Sepsis, unspecified organism; R65.20 - Severe sepsis without septic shock (8) Sepsis-associated organ dysfunction Current visit: Yes Status: Acute Category: Medical Code(s): A41.9 - Sepsis, unspecified organism; R65.20 - Severe sepsis without septic shock
[2019-05-27 09:57] LABS: Basophils % 0.2 % (0.1-2.0); Eosinophils # 0.3 K/mm3 (0.0-0.4); Eosinophils % 3.4 % (0.1-12.0); Lymphocytes # 2.1 K/mm3 (0.7-4.5); Mean Corpuscular HGB Conc 32.6 g/dL (31.8-35.4); Mean Corpuscular Volume 85.6 fl (81-99); Mean Platelet Volume 11.2 fl (7.4-10.4); Monocytes # 0.9 K/mm3 (0.1-1.0); Monocytes % 9.9 % (1.7-9.3); Neutrophils # 5.9 K/mm3 (1.8-7.8); Neutrophils % 63.4 % (37.0-80.0); Platelet Count 247 K/mm3 (142-424); Red Blood Count 2.66 M/mm3 (4.20-5.40); Red Cell Distribution Width 15.8 % (11.5-17.5); White Blood Count 9.3 K/mm3 (4.8-10.8)
[2019-05-27 10:08] LABS: Hematocrit 22.7 % (37.0-47.0); Hemoglobin 7.4 g/dL (12.2-16.2)
[2019-05-27 10:32] LABS: Anion Gap 16.9 mEq/L (5-15); Calcium 8.8 mg/dL (8.5-10.1)
[2019-05-27 12:59] LABS: Hematocrit 25.1 % (37.0-47.0); Hemoglobin 8.1 g/dL (12.2-16.2)
--- NOTE | 2019-05-27 18:19 | Progress Note ---
Subjective Date: 05/27/19 Time: 17:30 Principal diagnosis: s/p R TKA Interval history: Patient is status post right total knee arthroplasty post op day #4. Patient is lying down on the bed and says is doing well and reports no problems. Patient has minimal pain and says it's well-controlled with medication. She says the nerve block block is starting to wear off. No history of any nausea or vomiting. No history of any cough, chest pain, shortness of breath or palpit ations. Patient says she is eating and drinking well. No history of any distal tingling or numbness. Patient is still tachycardic but is asymptomatic. PN: Obj Ex Vital signs: Temp Pulse Resp BP Pulse Ox 98.2 F 110 H 18 124/77 98 05/27/19 15:25 05/27/19 16:00 05/27/19 15:25 05/27/19 15:25 05/27/19 15:25 Narrative: Laboratory Results - last 24 hr 05/27/19 09:42: WBC 9.3, RBC 2.66 L, Hgb 7.4 L*, Hct 22.7 L*, MCV 85.6, MCH 27.9, MCHC 32.6, RDW 15.8, Plt Count 247, MPV 11.2 H, Neut % (Auto) 63.4, Lymph % (Auto) 23.0, [place] % (Auto) 9.9 H, Eos % (Auto) 3.4, Baso % (Auto) 0.2, Neut # (Auto) 5.9, Lymph # (Auto) 2.1, [place] # (Auto) 0.9, Eos # (Auto) 0.3, Baso # (Auto) 0.0 05/27/19 09:42: Sodium 138, Potassium 3.9, Chloride 105, Carbon Dioxide 20 L, Anion Gap 16.9 H, BUN 8 D, Creatinine 1.05 H D, Estimated Creat Clear 60, Estimated GFR 57 L, Est GFR ( Amer) 69 D, Glucose 97, Calcium 8.8 05/27/19 11:14: Blood Type AB Positive, Antibody Screen Negative, Crossmatch (AHG) See Detail 05/27/19 11:14: Hgb 8.1 L, Hct 25.1 L Exam General appearance: alert, active, awake, no acute distress Cardiovascular: regular rate & rhythm, normal peripheral pulses Respiratory: No respiratory distress noted, speaks in full sentences ABD: soft and non tender Neuro: alert, awake, oriented x 3 On examination of the lower extremities the limb lengths are equal. Thigh and calf are soft. On examination of the right knee the dressing is clean, dry and intact. She has few skin blisters around the knee one of which has burst open with some serous discharge. No evidence of any infection or other complications is noted. Distal pulses are 2+. Distal sensation is intact to light touch throughout. She is actively moving the foot and ankle. - Urinary Catheter Management Dias Cath placed during this visit: no Progress Note: A&P (1) Arthritis of knee, degenerative Status: Acute Current Visit: Yes (2) Total knee replacement status Status: Acute Current Visit: Yes (3) Tachycardia Status: Acute Current Visit: Yes (4) Obesity Status: Acute Current Visit: Yes (5) Anemia Status: Acute Current Visit: Yes (6) Renal insufficiency Status: Acute Current Visit: Yes (7) Severe sepsis Status: Acute Current Visit: Yes (8) Sepsis-associated organ dysfunction Status: Acute Current Visit: Yes Assessment and Plan for All Diagnoses:: I have reviewed the clinical findings and progress with the patient and family. Patient is doing well from an orthopedic standpoint and reports no problems. Patient is mobilizing well weightbearing as tolerated on the right side with the walker and to continue the same; continue PT/OT; continue regular icing right knee; continue DVT prophylaxis as ordered. Continue medical management as per Dr. Tucker.
--- NOTE | 2019-05-28 09:09 | Progress Note ---
Internal Medicine - PN: Subj *Date: 05/28/19 *Time: 09:06 Interval history: looks better today and tachycardia better- constipated and we discussed activity- surg site looks good Exam Vital signs and Labs for Last 24 Hours: Temp Pulse Resp BP Pulse Ox 97.8 F 105 H 19 140/88 97 05/28/19 07:42 05/28/19 07:42 05/28/19 07:42 05/28/19 07:42 05/28/19 07:42 Laboratory Results - last 24 hr 05/27/19 09:42: WBC 9.3, RBC 2.66 L, Hgb 7.4 L*, Hct 22.7 L*, MCV 85.6, MCH 27.9, MCHC 32.6, RDW 15.8, Plt Count 247, MPV 11.2 H, Neut % (Auto) 63.4, Lymph % (Auto) 23.0, [place] % (Auto) 9.9 H, Eos % (Auto) 3.4, Baso % (Auto) 0.2, Neut # (Auto) 5.9, Lymph # (Auto) 2.1, [place] # (Auto) 0.9, Eos # (Auto) 0.3, Baso # (Auto) 0.0 05/27/19 09:42: Sodium 138, Potassium 3.9, Chloride 105, Carbon Dioxide 20 L, Anion Gap 16.9 H, BUN 8 D, Creatinine 1.05 H D, Estimated Creat Clear 60, Estimated GFR 57 L, Est GFR ( Amer) 69 D, Glucose 97, Calcium 8.8 05/27/19 11:14: Blood Type AB Positive, Antibody Screen Negative, Crossmatch (AHG) See Detail 05/27/19 11:14: Hgb 8.1 L, Hct 25.1 L I & O for Last 24 hours: Intake & Output 05/25/19 05/26/19 05/27/19 05/28/19 11:59 11:59 11:59 11:59 Intake Total 420 / 420 120 / 120 1240 / 1240 480 / 480 Output Total 300 / 300 4550 / 4550 1550 / 1550 Balance 420 / 420 -180 / -180 -3310 / -3310 -1070 / -1070 Weight 225 lb 9 oz 262 lb 10.54 oz 266 lb 9.01 oz 262 lb 2 oz Microbiology Reports for the Last 24 Hours: Microbiology 05/26/19 07:40 Blood Blood Culture - Preliminary NO GROWTH AFTER 48 HOURS 05/26/19 07:40 Blood Blood Culture - Preliminary NO GROWTH AFTER 48 HOURS 05/27/19 07:10 Sputum - Expectorated Sputum Gram Stain - Final 05/27/19 07:10 Sputum - Expectorated Sputum Sputum Culture - Preliminary 05/24/19 07:45 Urine,Clean Catch Urine Culture - Final NO GROWTH AFTER 48 HOURS - Constitutional no acute distress, obese - *Routine HEENT Exam Head: Present: normocephalic Eye: Present: EOMI, PERRL ENT: Present: mucous membranes dry - *Routine Neck Exam Absent: JVD - *Routine Respiratory Exam Present: decreased breath sounds - *Routine Cardiovascular Exam Present: tachycardia. Absent: murmur - *Routine Abdominal Exam Present: soft - *Routine Skin Exam Comments: superficial skin areas on rt lower leg - *Routine Neurological Exam Present: alert - Routine Psychiatric Exam Present: normal affect Assessment and Plan (1) Arthritis of knee, degenerative Current visit: Yes Status: Acute Category: Medical Code(s): M17.10 - Unilateral primary osteoarthritis, unspecified knee (2) Total knee replacement status Current visit: Yes Status: Acute Category: Surgical Code(s): Z96.659 - Presence of unspecified artificial knee joint (3) Tachycardia Current visit: Yes Status: Acute Category: Medical Code(s): R00.0 - Tachycardia, unspecified (4) Obesity Current visit: Yes Status: Acute Qualifiers: Obesity type: due to excess calories Obesity classification: adult class 3 (BMI >= 40) Serious obesity comorbidity presence: with serious comorbidity Body mass index: BMI 45.0-49.9 Qualified Code(s): E66.01 - Morbid (severe) obesity due to excess calories; Z68.42 - Body mass index (BMI) 45.0-49.9, adult Category: Medical Code(s): E66.9 - Obesity, unspecified (5) Anemia Current visit: Yes Status: Acute Qualifiers: Anemia type: unspecified type Qualified Code(s): D64.9 - Anemia, unspecified Category: Medical Code(s): D64.9 - Anemia, unspecified (6) Renal insufficiency Current visit: Yes Status: Acute Category: Medical Code(s): N28.9 - Disorder of kidney and ureter, unspecified (7) Severe sepsis Current visit: Yes Status: Acute Category: Medical Code(s): A41.9 - Sepsis, unspecified organism; R65.20 - Severe sepsis without septic shock (8) Sepsis-associated organ dysfunction Current visit: Yes Status: Acute Category: Medical Code(s): A41.9 - Sepsis, unspecified organism; R65.20 - Severe sepsis without septic shock
--- NOTE | 2019-05-28 15:29 | Progress Note ---
Subjective Date: 05/28/19 Time: 14:30 Principal diagnosis: s/p R TKA Interval history: Patient is status post right total knee arthroplasty post op day #5. Patient is lying down on the bed and says she is doing well. Says she had problem with pain earlier today but is better now after receiving oral Percocet. Nursing staff informed that Dr. Tucker has increased her Percocet dosage. She says she got out of bed and walked twice today. No history of any nausea or vomiting. No history of any cough, chest pain, shortness of breath or palpitations. Patient says she is eating and drinking well. No history of any distal tingling or numbness. PN: Obj Ex Vital signs: Temp Pulse Resp BP Pulse Ox 98.7 F 117 H 20 128/94 H 100 05/28/19 10:57 05/28/19 10:57 05/28/19 10:57 05/28/19 10:57 05/28/19 10:57 Narrative: Laboratory Results - last 24 hr 05/27/19 11:14: Blood Type AB Positive, Antibody Screen Negative, Crossmatch (AHG) See Detail Exam General appearance: alert, active, awake, no acute distress Cardiovascular: regular rate & rhythm, normal peripheral pulses Respiratory: No respiratory distress noted, speaks in full sentences ABD: soft and non tender Neuro: alert, awake, oriented x 3 On examination of the lower extremities the limb lengths are equal. Thigh and calf are soft. On examination of the right knee the dressing is slightly soaked with serous discharge -I have changed the dressing and the incision looks healthy. She has multiple skin blisters around the knee and couple of them have burst open with some serous discharge. No evidence of any infection or other complications is noted. Distal pulses are 2+. Distal sensation is intact to light touch throughout. She is actively moving the foot and ankle. She is still not able to actively straight leg raise. - Urinary Catheter Management Dias Cath placed during this visit: no Progress Note: A&P (1) Arthritis of knee, degenerative Status: Acute Current Visit: Yes (2) Total knee replacement status Status: Acute Current Visit: Yes (3) Tachycardia Status: Acute Current Visit: Yes (4) Obesity Status: Acute Current Visit: Yes (5) Anemia Status: Acute Current Visit: Yes (6) Renal insufficiency Status: Acute Current Visit: Yes (7) Severe sepsis Status: Acute Current Visit: Yes (8) Sepsis-associated organ dysfunction Status: Acute Current Visit: Yes Assessment and Plan for All Diagnoses:: I have reviewed the clinical findings and progress with the patient and family. Patient is doing well from an orthopedic standpoint but still having some problems with the pain control. Her pain medication dose has been increased and hopefully this will help her to better control the pain. Patient is mobilizing weightbearing as tolerated on the right side with the walker and I have advised her to continue the same; continue PT/OT; continue regular icing right knee; continue DVT prophylaxis as ordered. I have shown the patient static quadriceps exercises and knee range of motion exercises which she can do by herself. Continue medical management as per Dr. Tucker.
--- NOTE | 2019-05-29 07:43 | Progress Note ---
Subjective Date: 05/29/19 Time: 07:40 Principal diagnosis: s/p R TKA Interval history: 43 yo BF in bed in NAD. More alert and interactive compared to when I last saw her on 05/26/2019. She admits crying due to the pain in knee from surgery and physical therapy/movement but knows that she must go through it to get better. We discussed the elevated heart rate and our treatment. Metoprolol increased to 100 mg daily over the weekend with some intermittent improvement. Exam Vital signs and Labs for Last 24 Hours: Temp Pulse Resp BP Pulse Ox 99.7 F H 99 H 24 119/75 100 05/29/19 04:00 05/29/19 04:00 05/29/19 04:00 05/29/19 04:00 05/29/19 04:00 I & O for Last 24 hours: Intake & Output 05/26/19 05/27/19 05/28/19 05/29/19 11:59 11:59 11:59 11:59 Intake Total 120 / 120 1240 / 1240 480 / 480 360 / 360 Output Total 300 / 300 4550 / 4550 1550 / 1550 250 / 250 Balance -180 / -180 -3310 / -3310 -1070 / -1070 110 / 110 Weight 262 lb 10.54 oz 266 lb 9.01 oz 262 lb 2 oz 261 lb Microbiology Reports for the Last 24 Hours: Microbiology 05/26/19 07:40 Blood Blood Culture - Preliminary NO GROWTH AFTER 48 HOURS 05/26/19 07:40 Blood Blood Culture - Preliminary NO GROWTH AFTER 48 HOURS 05/27/19 07:10 Sputum - Expectorated Sputum Gram Stain - Final 05/27/19 07:10 Sputum - Expectorated Sputum Sputum Culture - Preliminary - *Routine Neck Exam Present: supple. Absent: JVD, carotid bruit - *Routine Respiratory Exam Present: CTA bilaterally. Absent: accessory muscle use, rales, rhonchi, wheezes - *Routine Cardiovascular Exam Present: RRR, tachycardia. Absent: murmur, gallop, rubs - *Routine Abdominal Exam Present: soft. Absent: tenderness, distended, guarding - *Routine Extremities Exam Absent: edema, calf tenderness - *Routine Neurological Exam Present: alert, oriented X3, moving all extremities Progress Note: A&P (1) Arthritis of knee, degenerative Status: Acute Current Visit: Yes (2) Total knee replacement status Status: Acute Current Visit: Yes (3) Tachycardia Status: Acute Current Visit: Yes (4) Obesity Status: Acute Current Visit: Yes (5) Anemia Status: Acute Current Visit: Yes (6) Renal insufficiency Status: Acute Current Visit: Yes (7) Severe sepsis Status: Acute Current Visit: Yes (8) Sepsis-associated organ dysfunction Status: Acute Current Visit: Yes Assessment and Plan for All Diagnoses:: 1. Continue to use metoprolol for HR and BP control. Uptitrate as needed but tachycardia exacerbated by pain and anemia. Echo shows hyperdynamic LVEF >65%. 2. Cardiac status stable. Nothing further to add at this time. Will see as needed.
--- NOTE | 2019-05-29 08:53 | Progress Note ---
Subjective Date: 05/29/19 Time: 08:30 Principal diagnosis: s/p R TKA Interval history: The patient is more awake and alert this morning. Pain reported in the R knee but she appears comfortable. Has been walking to the bathroom and back 2-3 times per day. Has not been seen by physical therapy since 05/25/2019. PN: Obj Ex Vital signs: Temp Pulse Resp BP Pulse Ox 98.5 F 112 H 18 136/95 H 99 05/29/19 08:00 05/29/19 08:00 05/29/19 08:00 05/29/19 08:00 05/29/19 08:00 - Constitutional no acute distress - Routine HEENT Exam Head: Present: normocephalic Eye: Present: EOMI ENT: Present: mucous membranes moist - Routine Respiratory Exam Present: CTA bilaterally - Routine Abdominal Exam Present: soft. Absent: tenderness - Routine Extremities Exam Comments: RLE incision c/d/i, no active drainage, mildly warm to touch w/o erythema mild blistering of proximal tibia, well lateral to incision; most likely due to swelling moderate soft tissue swelling R knee +DF/PF/EHL RLE SILT distally RLE R calf soft, compressible, non-tender palpable pedal pulses RLE, foot warm - Routine Skin Exam Present: warm - Routine Neurological Exam Present: alert, oriented X3, moving all extremities, normal tone, hearing grossly intact, normal speech. Absent: sensory deficit, motor deficit, altered mental status - Urinary Catheter Management Dias Cath placed during this visit: no Progress Note: A&P (1) Arthritis of knee, degenerative Status: Acute Current Visit: Yes (2) Total knee replacement status Status: Acute Current Visit: Yes (3) Tachycardia Status: Acute Current Visit: Yes (4) Obesity Status: Acute Current Visit: Yes (5) Anemia Status: Acute Current Visit: Yes (6) Renal insufficiency Status: Acute Current Visit: Yes Assessment and Plan for All Diagnoses:: 43yo F POD 6 s/p R TKA -- WBAT RLE, continue home exercises/ROM -- elevate/ice RLE frequently -- CHINMAY hose RLE -- DVT prophy: SCDs + lovenox -- ok to d/c home today from ortho standpoint
--- NOTE | 2019-05-29 12:35 | Discharge Summary ---
General - General Admission date:: 05/23/19 Discharge date: 05/29/19 HPI HPI: 43yo F with a history of chronic R knee pain; she underwent prior arthroscopic surgery on this knee though the procedure and year are unknown. She has received multiple steroid and SALMERON injections in the knee over the years, none of which have been effective. Under my care, she has tried the following for her knee: ice, activity modification, NSAIDs, tylenol, intra-articular steroid injection, physical therapy. She is in pain management for her back and takes [place] at baseline as well. Offloader brace was ordered by myself, but this was not covered by insurance and the cost was very high so the patient elected not to buy it. She has a history of HTN, GERD, fibromyalgia, vitamin D deficiency, PTSD, chronic back pain with sciatica; NO history of DM. She has a history of MRSA infection in her left foot. Surgical history includes b/l knee arthroscopy, hysterectomy, ORIF b/l DRF, cholecystectomy. She is and lives with her ; she does not work. Their home is one level and she feels she has good support at home; transportation is often an issue, however. She is a smoker but denies alcohol use. BMI is 42.9; weight was measured in the office today. The s teroid injection she received at her last visit with me on 03/17/2019 was ineffective; she would like to discuss surgical options for her knee. The patient has exhausted conservative treatment for knee arthritis, consisting of: ice, activity modification, NSAIDs, tylenol, intra-articular steroid injection, hyaluronic acid injections, OTC bracing, and physical therapy. The pain has become so severe that it is inhibiting her ability to perform ADLs and is adversely affecting her quality of life. Monica discussed surgical options with the patient and have recommended total knee arthroplasty. We discussed at length the surgical technique and expected perioperative course, including length of hospitalization, need for postoperative physical therapy, use of anticoagulants, expected level of pain, and total length of recovery. I discussed her increased risk for infection given a history of MRSA infection and recent CSI, and overall increased risk of livan-operative complication given her increased BMI. I also explained the potential risks of surgery, including bleeding, infection, fracture, wound healing complications, need for revision surgery, continued pain post-operatively, DVT/PE, and risks of both general and regional anesthesia, including nerve damage, heart attack, stroke and even . The patient vocalized understanding of these risks and has agreed to proceed with surgery; informed consent was obtained. She obtained medical clearance from her primary care physician. R TKA was performed 05/23/19 without complication. Hospital Course Hospital Course: pt was admitted to [facility] for knee replacement -ntinue WBAT RLE using RW, continue home exercises as dictated by PT -- ice R knee frequently, elevate when not ambulatory, keep straight with pillow under ankle -- may shower starting POD 3 -- change dressing once daily -- continue lovenox x2 weeks, then transition to 1 aspirin daily x1 month -- pain Rx given at discharge -- f/u with Dr. Brown at 2 weeks post-op -- outpatient physical therapy to start Wednesday05/26/2019 Patient Instructions: Knee Replacement, DI for Knee Replacement, DI for Surgical Site Infection pt had did well but after pod 2 she had change and was seen with tachycardia , dec loc and low bp with slight temp-t with persistent sinus tachycardia with low bp - pt with recent knee surg and had recent v/q scan - no chest pain and no def sob but has dec loc but had recent meds and is arousable - ekg showed st and was unchanged from recent ekg except rate by my review - cxr was increased changes and marjan proceed with ct chest for pe - pt with severe sepsis with organ dysfuntion with dec bp - no pul emboli pt was briefly covered with abx sec to sepsis protocol but has did well off abx x 48 hrs and had clear mentation as meds decreased and hydration - she was seen by card --year-old black female in the hospital for right knee arthroplasty was on the way to being discharged home when the nursing staff became concerned about the patient's alertness. Patient would not off apparently between questions. She has been tachycardic throughout her stay. VQ scan was obtained showing intermediate risk for pulmonary embolus with follow-up CT being negative for pulmonary embolus but with evidence of bibasilar, perihilar and upper lobe abnormalities with concern for infiection or edema. Fluid-filled distended esophagus noted. Patient's blood pressure noted to be hypotensive and IV fluids were started. Patient's blood pressure has improved although her alertness continues to be reduced. Patient did receive high-dose Seroquel, Dilaudid, Xanax and hydrocodone last evening which likely is contributing to her hypotension and depressed alertness state. EKG shows sinus tachycardia with low voltage and poor R wave progression. Unchanged from previous tracings. Lactate and troponin are both within normal limits. ABG without significant abnormalities. she has slowly improved and responded to card meds and has seen by ortho- she has tolerated activity and diet and has had pain meds and block by dr almendarez - Objective Vital signs: Temp Pulse Resp BP Pulse Ox 98.5 F 91 H 17 138/87 100 05/29/19 12:00 05/29/19 12:00 05/29/19 12:00 05/29/19 12:00 05/29/19 12:00 no acute distress, obese - *Routine HEENT Exam Head: Present: normocephalic Eye: Present: EOMI, PERRL ENT: Present: mucous membranes dry - *Routine Neck Exam Present: supple. Absent: JVD - *Routine Respiratory Exam Present: CTA bilaterally - *Routine Cardiovascular Exam Present: murmur, tachycardia. Absent: gallop, rubs - *Routine Abdominal Exam Present: soft - *Routine Extremities Exam Comments: s/p rt tkp with no clinical evid of infection - *Routine Skin Exam Absent: rash - *Routine Neurological Exam Present: alert, oriented X3, CN II-XII intact - Routine Psychiatric Exam Present: normal affect Results Labs on day of discharge: Preliminary micro results at discharge 05/27/19 07:10 Sputum Culture - Preliminary Sputum - Expectorated Sputum 05/26/19 07:40 Blood Culture - Preliminary Blood NO GROWTH AFTER 48 HOURS 05/26/19 07:40 Blood Culture - Preliminary Blood NO GROWTH AFTER 48 HOURS 05/24/19 23:55 Blood Culture - Preliminary Blood NO GROWTH AFTER 48 HOURS 05/24/19 23:55 Blood Culture - Preliminary Blood NO GROWTH AFTER 48 HOURS DS: Diagnosis - Discharge Diagnosis (1) Arthritis of knee, degenerative Status: Acute (2) Total knee replacement status Status: Acute (3) Tachycardia Status: Acute (4) Obesity Status: Acute (5) Anemia Status: Acute (6) Renal insufficiency Status: Acute Discharge Plan - Patient Discharge Instructions ACTIVITY: Continue current activity DIET: continue same diet Additional Instructions: detailed d/c instruction sheet given to the patient -- continue WBAT RLE using RW, continue home exercises as dictated by PT -- ice R knee frequently, elevate when not ambulatory, keep straight with pillow under ankle -- may shower starting POD 3 -- change dressing once daily -- continue lovenox x2 weeks, then transition to 1 aspirin daily x1 month -- pain Rx given at discharge -- f/u with Dr. Brown at 2 weeks post-op -- outpatient physical therapy to start Wednesday05/26/2019 Patient Instructions: Knee Replacement, DI for Knee Replacement, DI for Surgical Site Infection - Follow up Plan Follow up with: Kiesha Brown MD [Physician] - 06/05/19 2:15 pm (x rays prior to appt appointment to start physical therapy 05/26 at 2:00) Adonis Hess MD [Referring] - 2 weeks Disposition: Home, Self-Fdc Medications: Home Medications Medication Instructions Recorded Confirmed Type budesonide-formoterol HFA 160 1 puff INHALATION DAILY #10 g 09/14/18 05/23/19 Rx mcg-4.5 mcg/actuation aerosol inhaler Meloxicam 15 mg PO DAILY 12/02/18 05/23/19 History omeprazole 20 mg tablet,delayed 20 mg PO BID #180 tab 03/07/19 05/23/19 Rx release ranitidine 150 mg tablet 150 mg PO BID #180 tab 03/07/19 05/23/19 Rx ondansetron 8 mg disintegrating 8 mg PO Q8H PRN #30 tab 05/05/19 05/23/19 Rx tablet alprazolam 0.5 mg tablet 0.5 mg PO BID #60 tab 05/08/19 05/23/19 Rx gabapentin 600 mg tablet 600 mg PO QID #120 tab 05/08/19 05/23/19 Rx cholecalciferol (vitamin D3) 5,000 5,000 unit PO DAILY #90 cap 05/15/19 05/23/19 Rx unit capsule Albuterol Sulfate [Ventolin HFA] 1 puff IH DAILY 05/23/19 05/23/19 History Lisinopril [Lisinopril 10mg Tab] 10 mg PO DAILY 05/23/19 05/23/19 History Quetiapine Fumarate 400 mg PO HS 05/23/19 05/23/19 History Quetiapine Fumarate [Seroquel 100 mg PO HS 05/23/19 05/23/19 History 100mg tablet] Enoxaparin Sodium [Lovenox 30 mg SQ Q12H 13 Days syringe 05/25/19 Rx 30mg/0.3mL syringe] Oxycodone HCl/Acetaminophen 1 each PO Q12 PRN 14 Days #28 tab 05/25/19 Rx [Oxycodone W/Apap 325mg Tablet] Metoprolol Succinate 50 mg PO DAILY #30 tab.er.24h 05/29/19 Rx Prescriptions/Medication Reconciliation: New Lisinopril [Zestril 10mg Tab] 10 mg PO DAILY tablet Oxycodone HCl/Acetaminophen [Oxycodone W/Apap 325mg Tablet] 1 each PO Q12 PRN 14 Days #28 tab PRN Reason: Moderate To Severe Pain Enoxaparin Sodium [Lovenox 30mg/0.3mL syringe] 30 mg SQ Q12H 13 Days syringe Continued budesonide-formoterol HFA 160 mcg-4.5 mcg/actuation aerosol inhaler 1 puff INHALATION DAILY #10 g omeprazole 20 mg tablet,delayed release 20 mg PO BID #180 tab ranitidine 150 mg tablet 150 mg PO BID #180 tab ondansetron 8 mg disintegrating tablet 8 mg PO Q8H PRN #30 tab PRN Reason: nausea and vomiting gabapentin 600 mg tablet 600 mg PO QID #120 tab cholecalciferol (vitamin D3) 5,000 unit capsule 5,000 unit PO DAILY #90 cap alprazolam 0.5 mg tablet 0.5 mg PO BID #60 tab Lisinopril [Lisinopril 10mg Tab] 10 mg PO DAILY Quetiapine Fumarate 400 mg PO HS Albuterol Sulfate [Ventolin HFA] 1 puff IH DAILY Quetiapine Fumarate [Seroquel 100mg tablet] 100 mg PO HS Discontinued Meloxicam 15 mg PO DAILY - Problem Reconciliation Problems Reviewed?: Yes
--- NOTE | 2019-05-30 11:40 | Electrocardiograph Report ---
APPROVED REPORT Exam: Resting ECG HR:120 bpm ECG Measurements Heart Rate 120 AXES [place] 148 P 55 QRSd 78 QRS -4 QT 328 T40 QTc 463 <Conclusion> Sinus tachycardia Low voltage QRS Poor R Wave Progression Abnormal ECG Electronically signed by : Moe Joyce, 05/30/2019 11:39:32
== END 2019-05-29 17:40 | disposition home or self-care (01) | DRG 470 ==
LOC: OR 06:08 → 2ND 06:08 → INTOOBSV 06:13 → 2ND 12:34
PROVIDERS: ADMIT Orthopaedic Surgery; ATTEND Emergency Medicine
CPT/HCPCS: 36415; 64447; 71010; 71020; 71045; 71046; 71275; 73560; 78582; 80048; 81001; 82803; 83605; 84484; 84703; 85007; 85014; 85018; 85025; 86850; 87040; 87070; 87077; 87086; 87205; 93005; 93306; 94761; 96374; 97110; 97116; 97161; 97166; 97530; 97535; C1713; C1776; G0378; J0131; J1956; J2405; J2543; J2704; J3370; Q9967

== ENCOUNTER → 2019-06-15 13:02 | Outpatient (CLI) | payer BC, SELFPAY ==
--- NOTE | 2019-06-15 13:06 | XR_ITS ---
PROCEDURE: XR KNEE RT 3V CLINICAL INDICATION: Post OP: Rt TKA Follow-up surgery/total knee arthroplasty COMPARISON: KNEESTBI XR knee standing BI from 10/21/2017 [id number] XR knee RT 4V from 10/21/2017 XR KNEE RT 4V from 03/17/2019 XR KNEE RT 2V from 05/23/2019 FINDINGS: Alignment status post total knee arthroplasty. Skin clips are present. No evidence of orthopedic complication. Other findings:Postoperative soft tissue gas has resolved IMPRESSION: Good alignment status post total knee arthroplasty Dictated by: Ferdinand Olvera MD 06/15/2019 16:00 Electronically signed by Ferdinand Olvera MD in [place] 06/15/2019 16:00
[2019-06-15 16:08] LABS: C-Reactive Protein 6.4 mg/dL (0.0-0.9)
[2019-06-15 16:22] LABS: Basophils # 0.1 K/mm3 (0-0.2); Basophils % 0.4 % (0.1-2.0); Eosinophils # 0.5 K/mm3 (0.0-0.4); Eosinophils % 4.1 % (0.1-12.0); Hematocrit 29.8 % (37.0-47.0); Hemoglobin 8.7 g/dL (12.2-16.2); Lymphocytes # 2.7 K/mm3 (0.7-4.5); Lymphocytes % 23.8 % (10-50); Mean Corpuscular Hemoglobin 25.6 pg (27.0-31.2); Mean Corpuscular Volume 88.2 fl (81-99); Mean Platelet Volume 7.5 fl (7.4-10.4); Monocytes # 0.6 K/mm3 (0.1-1.0); Monocytes % 5.5 % (1.7-9.3); Neutrophils # 7.5 K/mm3 (1.8-7.8); Neutrophils % 66.1 % (37.0-80.0); Platelet Count 610 K/mm3 (142-424); Red Blood Count 3.38 M/mm3 (4.20-5.40); Red Cell Distribution Width 16.3 % (11.5-17.5); White Blood Count 11.3 K/mm3 (4.8-10.8)
[2019-06-15 17:09] LABS: Erythrocyte Sedimentation Rate > 140 mm/hr (0-20)
[2019-06-17 15:58] LABS: Color,Fluid Red (Yellow); Eosinophils,Fluid 6 % (Not Estab.); Lymphocytes,Fluid 32 % (Not Estab.); Macrophages,Fluid 11 % (Not Estab.); Nucleated cells, Syn. Fluid 6605 cells/uL (0-200); Polys,Fluid 51 % (Not Estab.)
[2019-06-17 18:09] LABS: RBC,Fluid >99999 /uL (Not Estab.)
== END ==
PROVIDERS: PCP Emergency Medicine; Visit Provider Orthopaedic Surgery
DX: T81.40XA Infection following a procedure, unspecified, initial encounter (principal); M25.561 Pain in right knee; Z96.651 Presence of right artificial knee joint
CPT/HCPCS: 36415; 73562; 85025; 85651; 86140; 87070; 87205; 89051

== ENCOUNTER → 2019-06-15 15:40 | Outpatient (CLI) | payer BC, SELFPAY | PROVIDERS: Visit Provider Orthopaedic Surgery | DX: M25.562 Pain in left knee (principal); Z96.652 Presence of left artificial knee joint | CPT/HCPCS: 36415; 85025; 85651; 86140; 87070; 87205; 89051 ==

== ENCOUNTER → 2019-07-03 15:05 | Outpatient (CLI) | payer BC, SELFPAY ==
[2019-07-03 16:07] LABS: C-Reactive Protein 1.9 mg/dL (0.0-0.9)
== END ==
PROVIDERS: Visit Provider Orthopaedic Surgery
DX: Z96.651 Presence of right artificial knee joint (principal); T81.40XA Infection following a procedure, unspecified, initial encounter
CPT/HCPCS: 36415; 86140

== ENCOUNTER 2019-08-03 17:30 | Outpatient (RCR) | payer BC, SELFPAY ==
--- NOTE | 2019-05-29 17:51 | [facility].PTOPEV ---
PT Outpatient Evaluation Rehab PT Outpatient Evaluation Start: 05/29/19 16:47 Freq: Status: Active Protocol: Document 05/29/19 16:56 ALONSOJUDITH (Rec: 05/29/19 17:51 ALONSOJUDITH [id number]) Electronically Signed By Adi Corona, SEBASTIAN 05/29/19 16:56 Outpatient Therapy Subjective History Subjective History This is the initial Physical Therapy evaluation for Alejandro Madsen. Pt is a 43 y/ o female referred to PT s/p R TKA. Pt had sx 05/23/19. Pt now reports to PT for strengthening and ROM, w/ sig c/o pain. Pt also reports she has multiple blisters that have popped around the incision. Chief Complaint Pain,Swelling,Weakness Symptom Type Ache,Throb,Sharp,Stabbing, Shooting Symptoms Relieved By Rest/Positioning,Ice, Prescription Meds Symptoms Aggravated By Standing,Physical Activity, Walking Prior Functional Limitations Walking Current Functional Limitations Housework,Driving,Squatting, Recreation Activity,Walking, Stairs Symptom Description Constant but Variable Level of pain today (0-10) 6 Pain scale - at its best (0-10) 4 Pain scale - at its worst (0-10) 8 Hip/Knee Eval Gait Observation General Gait Pattern Observation Antalgic Gait Assistive Device Assistive Devices Straight Cane,Standard Walker Palpation Tenderness right Knee Palpation Finding Tenderness Knee Palpation Overall Comment TTP R Knee MMT Knee Extension Strength Grade 3- Fair- Knee Flexion Strength Grade 3- Fair- ROM Hip ROM Reason Not Measured Within Functional Limits Knee Extension Active Range of Motion ( 10 from neutral degrees) Knee Flexion Active Range of Motion ( 50 degrees) Knee ROM Limitations Soft Tissue Tightness,Muscle Weakness,Pain Outpatient Therapy Assessment Impairments Problems/Impairmments Palpation Tenderness,Impaired Range of Motion,Impaired Strength,Impaired Endurance, Impaired Gait Pattern,Impaired Walking,Impaired Standing, Impaired Dressing,Impaired Shower/Bathing,Impaired Household Care,Impaired Stair Climbing,Impaired
== END 2019-08-03 17:35 | disposition home or self-care (01) ==
LOC: PT 17:30
PROVIDERS: Visit Provider Orthopaedic Surgery
DX: M25.561 Pain in right knee (principal); Z96.651 Presence of right artificial knee joint
CPT/HCPCS: 97110; 97163; 97164

== ENCOUNTER 2019-08-03 18:25 | Inpatient (IN) ==
--- NOTE | 2019-08-03 21:10 | History & Physical Report ---
*Admission Date: 08/03/19 *Reason for consult:: R TKA infection *History of present illness: 44yo F s/p R TKA 05/23/19 admitted this evening with a draining sinus tract over the superior portion of her incision. I was called around 5:30pm by her physical therapist, who expressed concern that she was draining purulent material. On questioning, the patient says the knee opened up last Wednesday and has been draining for 6 days. She has been cleaning the wound with a Q-tip and cleaning it with alcohol. Previously she had a scab in this location. It has gotten softer as she's showered daily and it eventually fell off. The wound measures around 1.5-2cm in length. I probed this with a Q-tip in PT and it seemed superficial at first, but then there was a pop in the underlying tissue and a siddiqui of pus. I swabbed this and sent it for culture. The patient was last seen in my clinic 07/03/19, at which time her CRP was 1.9. She has not had any fevers at home, though she has had continued pain in the knee. The patient has been very noncompliant post-operatively and has only been to 2 follow-up visits. She did not return for staple removal for 3.5 weeks after surgery. I was concerned for infection given the appearance of her wound, so I aspirated the knee. The cell count was 6606, 51% PMNs, culture negative. Synovasure kit: cell count was 222, negative for alpha-defensin, synovial CRP 46, neutrophil elastase positive, no crystals, microbial panel (synovasure kit) was negative. Serum WBC was 11.3, CRP 6.4. Given the acuity of her surgery I did not feel she was infected at this time. I planned on following this closely, but the patient consistently cancelled or no-showed PT appointments. Her last office visit with me was on 07/03/2019, at which time her serum CRP was 1.9 and her wound appeared to be healing well. [facility] History I have reviewed the patient's past medical history: Yes Medical History: Reports:: Anxiety, Chronic Obstructive Pulmonary Disease (COPD), Depression, Gastroesophageal Reflux Disease(GERD), Hiatal Hernia, Hy pertension, Lung Disease, MRSA (toe) Denies:: Cancer, Diabetes Mellitus Type 1, Diabetes Mellitus Type 2, Internal Pacemaker, Seizures *Have you ever received a pneumonia vaccine?: Yes *Have you received a flu vaccine this season?: Yes Other Medical History: Reports: Arthritis, Fibromyalgia, Other. Denies: Blood Transfusion Reaction Laterality Cases: Bilateral: Arthroscopy Knee Other Surgeries: Yes: No Previous Surgery, Cholecystectomy, Colonoscopy, EGD, Hysterectomy-Total, Tubal Ligation, Other. No: Pacemaker Amputation: No Fractures: Yes (aisha wrist) - *Social History Educational Level: Completed High School Smoking Status: Current every day smoker Tobacco Type: cigarettes # Packs/Day (cigarettes): 1 Alcohol Intake: never Alcohol Intake Frequency:: other Substance Use Type: denies use *Occupational Status:: unemployed Housing: apartment Household Members: spouse *Travel in the last 8 weeks: None - Psychiatric History Pschychiatric History:: Reports:: Anxiety, Depression Family Hx:: Diabetes Review of Systems - Review of Systems Review of systems:: unable to obtain Meds Home Medications Medication Instructions Recorded Confirmed Type budesonide-formoterol HFA 160 1 puff INHALATION DAILY #10 g 09/14/18 08/03/19 Rx mcg-4.5 mcg/actuation aerosol inhaler ranitidine HCl 150 mg tablet 150 mg PO BID #180 tab 03/07/19 08/03/19 Rx ondansetron 8 mg disintegrating 8 mg PO Q8H PRN #30 tab 05/05/19 08/03/19 Rx tablet alprazolam 0.5 mg tablet 0.5 mg PO BID #60 tab 05/08/19 08/03/19 Rx gabapentin 600 mg tablet 600 mg PO QID #120 tab 05/08/19 08/03/19 Rx cholecalciferol (vitamin D3) 125 5,000 unit PO DAILY #90 cap 05/15/19 08/03/19 Rx mcg (5,000 unit) capsule Albuterol Sulfate [Albuterol HFA 1 puff IH DAILY 05/23/19 08/03/19 History Inhaler] lisinopriL [Lisinopril 10mg Tab] 20 mg PO DAILY 05/23/19 08/03/19 History Enoxaparin Sodium [Lovenox 30 mg SQ Q12H 08/03/19 08/03/19 History 30mg/0.3mL syringe] Metoprolol Succinate 50 mg PO DAILY 08/03/19 08/03/19 History Omeprazole [Omeprazole 20mg Tab] See Rx Instructions .ROUTE .COMPLEX 08/03/19 08/03/19 History Oxycodone HCl/Acetaminophen 7.5 mg PO Q12 PRN 08/03/19 08/03/19 History [Oxycodone W/Apap 325mg Tablet] Quetiapine Fumarate 400 mg PO HS 08/03/19 08/03/19 History quetiapine 100 mg tablet 100 mg PO HS #90 tab 08/03/19 08/03/19 Rx Allergies Allergy/AdvReac Type Severity Reaction Status Date / Time latex Allergy Verified 08/03/19 19:48 Exam Vital signs and Labs for Last 24 Hours: Temp Pulse Resp BP Pulse Ox 98.5 F 88 16 145/80 H 99 08/03/19 19:48 08/03/19 19:48 08/03/19 19:48 08/03/19 19:48 08/03/19 19:48 I & O for Last 24 hours: Intake & Output 08/01/19 08/02/19 08/03/19 08/04/19 11:59 11:59 11:59 11:59 Weight 235 lb 2 oz - Constitutional no acute distress - *Routine HEENT Exam Head: Present: normocephalic Eye: Present: EOMI ENT: Present: mucous membranes moist ([id number]) - *Routine Respiratory Exam Present: CTA bilaterally. Absent: respiratory distress, wheezes - *Routine Cardiovascular Exam Present: RRR - *Routine Abdominal Exam Present: soft. Absent: tenderness - *Routine Extremities Exam Comments: R TKA incision superior 1/3 open ~1.5-2cm, with active purulent drainage patient does not tolerate milking the wound, cannot express more pus no periwound erythema ROM 0-120 degrees, stable to varus/valgus stress; patient reports pain with ROM RLE NVI with +DF/PF/EHL, SILT distally palpable pedal pulses RLE R calf soft, non-tender - *Routine Skin Exam Present: wounds. Absent: erythema, ecchymosis - *Routine Neurological Exam Present: alert, oriented X3, moving all extremities, normal tone, hearing grossly intact, normal speech. Absent: sensory deficit, motor deficit, altered mental status - Routine Psychiatric Exam Present: normal affect Results - Labs Labs: All other labs normal. - Diagnostic results Knee x-ray: pending Assessment and Plan (1) Joint prosthesis infection or inflammation Current visit: Yes Status: Acute Category: Medical Code(s): T84.50XA - Infection and inflammatory reaction due to unspecified internal joint prosthesis, initial encounter (2) Obesity Current visit: No Status: Acute Qualifiers: Obesity type: due to excess calories Obesity classification: adult class 3 (BMI >= 40) Serious obesity comorbidity presence: with serious comorbidity Body mass index: BMI 45.0-49.9 Qualified Code(s): E66.01 - Morbid (severe) obesity due to excess calories; Z68.42 - Body mass index (BMI) 45.0-49.9, adult Category: Medical Code(s): E66.9 - Obesity, unspecified (3) Total knee replacement status Current visit: No Status: Acute Qualifiers: Laterality: right Qualified Code(s): Z96.651 - Presence of right artificial knee joint Category: Surgical Code(s): Z96.659 - Presence of unspecified artificial knee joint (4) Fibromyalgia Current visit: No Status: Chronic Category: Medical Code(s): M79.7 - Fibromyalgia - Assessment and plan all Dx Assessment and Plan for all problems:: 44yo F s/p R TKA 05/23/19, now with opening in surgical incision draining purulent material; suspect periprosthetic infection -- restart home meds -- diet tonight; NPO after midnight -- SCD LLE -- IS 10x/hr -- labs: CBC, CMP, coags, T&S, ESR/CRP + CXR, EKG -- XR R knee -- no antibiotics until OR, which is planned for tomorrow morning -- Dr. Tucker to see patient tonight -- lovenox x1 dose tonight
[2019-08-03 21:25] LABS: Basophils # 0.1 K/mm3 (0-0.2); Basophils % 0.4 % (0.1-2.0); Eosinophils # 0.3 K/mm3 (0.0-0.4); Hematocrit 36.3 % (37.0-47.0); Hemoglobin 11.2 g/dL (12.2-16.2); Lymphocytes # 3.2 K/mm3 (0.7-4.5); Lymphocytes % 25.3 % (10-50); Mean Corpuscular HGB Conc 30.9 g/dL (31.8-35.4); Mean Corpuscular Volume 81.3 fl (81-99); Mean Platelet Volume 7.9 fl (7.4-10.4); Monocytes # 0.4 K/mm3 (0.1-1.0); Monocytes % 2.9 % (1.7-9.3); Neutrophils # 8.7 K/mm3 (1.8-7.8); Neutrophils % 69.4 % (37.0-80.0); Platelet Count 429 K/mm3 (142-424); Red Blood Count 4.46 M/mm3 (4.20-5.40); Red Cell Distribution Width 17.1 % (11.5-17.5); White Blood Count 12.5 K/mm3 (4.8-10.8)
[2019-08-03 21:38] LABS: Activated Partial Thrombo Time 29.4 seconds (23.6-34.0); INR 0.99 (0.9-1.1); Prothrombin Time 10.3 seconds (9.4-11.8)
[2019-08-03 21:40] LABS: Albumin Level 3.4 gm/dL (3.4-5.0); Albumin/Globulin Ratio 0.8 (1.1-1.8); Bilirubin,Total 0.2 mg/dL (0.2-1.0); Calcium 10.5 mg/dL (8.5-10.1); Globulin 4.4 gm/dl (1.3-3.2); Total Protein,Serum 7.8 gm/dL (6.4-8.2)
--- NOTE | 2019-08-04 07:12 | Pharmacy Consult Notes ---
[facility] VTE Monitoring - Patient Demographics Admission date: 08/03/19 Report Date: 08/04/19 Time: 07:08 Allergies/Adverse Reactions: Patient Allergies latex Allergy (Verified 08/03/19 19:48) Height: 1.63 m Weight: 106.65 kg Patient Problems: Current Active Problems Joint prosthesis infection or inflammation (Acute) - VTE Risk Labs: VTE Related Lab Results Hgb 11.2 g/dL (12.2-16.2) L 08/03/19 21:10 Hct 36.3 % (37.0-47.0) L 08/03/19 21:10 Plt Count 429 K/mm3 (142-424) H 08/03/19 21:10 PT 10.3 seconds (9.4-11.8) 08/03/19 21:10 INR 0.99 (0.9-1.1) 08/03/19 21:10 APTT 29.4 seconds (23.6-34.0) 08/03/19 21:10 BUN 8 mg/dL (7-18) 08/03/19 21:10 Creatinine 1.16 mg/dL (0.55-1.02) H 08/03/19 21:10 Estimated Creat Clear 104 mL/min (50-200) 08/03/19 21:10 Was VTE Risk Assessment Performed: Yes VTE Score: 2 VTE Risk Level: Very Low Risk - Prophylaxis VTE Prophylaxis Ordered?: Yes Types of VTE Prophylaxis: TEDS Knee High Location of Applied Device: Left Leg (wound care on right knee) Pharmacologic Type: Enoxaparin (enoxaparin given once)
--- NOTE | 2019-08-04 08:31 | Consult Report ---
*Admission Date: 08/03/19 *Reason for consult:: medical *History of present illness: 44yo F s/p R TKA 05/23/19 admitted this evening with a draining sinus tract over the superior portion of her incision. I was called around 5:30pm by her physical therapist, who expressed concern that she was draining purulent material. On questioning, the patient says the knee opened up last Wednesday and has been draining for 6 days. She has been cleaning the wound with a Q-tip and cleaning it with alcohol. Previously she had a scab in this location. It has gotten softer as she's showered daily and it eventually fell off. The wound measures around 1.5-2cm in length. I probed this with a Q-tip in PT and it seemed superficial at first, but then there was a pop in the underlying tissue and a siddiqui of pus. I swabbed this and sent it for culture. The patient was last seen in my clinic 07/03/19, at which time her CRP was 1.9. She has not had any fevers at home, though she has had continued pain in the knee. The patient has been very noncompliant post-operatively and has only been to 2 follow-up visits. She did not return for staple removal for 3.5 weeks after surgery. I was concerned for infection given the appearance of her wound, so I aspirated the knee. The cell count was 6606, 51% PMNs, culture negative. Synovasure kit: cell count was 222, negative for alpha-defensin, synovial CRP 46, neutrophil elastase positive, no crystals, microbial panel (synovasure kit) was negative. Serum WBC was 11.3, CRP 6.4. Given the acuity of her surgery I did not feel she was infected at this time. I planned on following this closely, but the patient consistently cancelled or no-showed PT appointments. Her last office visit with me was on 07/03/2019, at which time her serum CRP was 1.9 and her wound appeared to be healing well. [facility] History I have reviewed the patient's past medical history: Yes Medical History: Reports:: Anxiety, Chronic Obstructive Pulmonary Disease (COPD), Depression, Gastroesophageal Reflux Disease(GERD), Hiatal Hernia, Hypertension, Lung Disease, MRSA (toe) Denies:: Cancer, Diabetes Mellitus Type 1, Diabetes Mellitus Type 2, Internal Pacemaker, Seizures *Have you ever received a pneumonia vaccine?: Yes *Have you received a flu vaccine this season?: Yes Other Medical History: Reports: Arthritis, Fibromyalgia, Other. Denies: Blood Transfusion Reaction Laterality Cases: Bilateral: Arthroscopy Knee Other Surgeries: Yes: No Previous Surgery, Cholecystectomy, Colonoscopy, EGD, Hysterectomy-Total, Tubal Ligation, Other. No: Pacemaker Amputation: No Fractures: Yes (aisha wrist) - *Social History Educational Level: Completed High School Smoking Status: Current every day smoker Tobacco Type: cigarettes # Packs/Day (cigarettes): 1 Alcohol Intake: never Alcohol Intake Frequency:: other Substance Use Type: denies use *Occupational Status:: unemployed Housing: apartment Household Members: spouse *Travel in the last 8 weeks: None - Psychiatric History Pschychiatric History:: Reports:: Anxiety, Depression Family Hx:: Diabetes Review of Systems - Review of Systems Review of systems:: pertinent systems reviewed and negative unless documented below - Constitutional Denies fever(s), Denies weight gain - Eyes Denies blurry vision - ENT Denies nasal congestion - *Cardiovascular Denies chest pain at rest, Denies shortness of breath - *Respiratory Denies chest congestion, Denies cough - *Gastrointestinal Denies nausea, Denies vomiting - *Genitourinary Denies abnormal periods - *Musculoskeletal Reports joint pain - Integumentary/Breasts Reports wounds Comments: open area to rt knee incision - *Neurologic Denies weakness - Psychiatric Denies anxiety - Endocrine Denies flushing - Hematologic/Lymphatic Denies enlarged lymph nodes Meds Home Medications Medication Instructions Recorded Confirmed Type budesonide-formoterol HFA 160 1 puff INHALATION DAILY #10 g 09/14/18 08/03/19 Rx mcg-4.5 mcg/actuation aerosol inhaler ranitidine HCl 150 mg tablet 150 mg PO BID #180 tab 03/07/19 08/03/19 Rx ondansetron 8 mg disintegrating 8 mg PO Q8H PRN #30 tab 05/05/19 08/03/19 Rx tablet alprazolam 0.5 mg tablet 0.5 mg PO BID #60 tab 05/08/19 08/03/19 Rx gabapentin 600 mg tablet 600 mg PO QID #120 tab 05/08/19 08/03/19 Rx cholecalciferol (vitamin D3) 125 5,000 unit PO DAILY #90 cap 11/11/19 01/30/20 Rx mcg (5,000 unit) capsule Albuterol Sulfate [Albuterol HFA 1 puff IH DAILY 05/23/19 08/03/19 History Inhaler] lisinopriL [Lisinopril 10mg Tab] 20 mg PO DAILY 05/23/19 08/03/19 History Enoxaparin Sodium [Lovenox 30 mg SQ Q12H 08/03/19 08/03/19 History 30mg/0.3mL syringe] Metoprolol Succinate 50 mg PO DAILY 08/03/19 08/03/19 History Omeprazole [Omeprazole 20mg Tab] 20 mg PO BID 08/03/19 08/04/19 History Oxycodone HCl/Acetaminophen 7.5 mg PO Q12 PRN 08/03/19 08/03/19 History [Oxycodone W/Apap 325mg Tablet] Quetiapine Fumarate 400 mg PO HS 08/03/19 08/03/19 History quetiapine 100 mg tablet 100 mg PO HS #90 tab 08/03/19 08/03/19 Rx Allergies Allergy/AdvReac Type Severity Reaction Status Date / Time latex Allergy Unknown Verified 08/04/19 07:39 allergy reaction Exam Vital signs and Labs for Last 24 Hours: Temp Pulse Resp BP Pulse Ox 98.6 F 90 18 121/84 95 08/04/19 07:49 08/04/19 07:49 08/04/19 07:49 08/04/19 07:49 08/04/19 07:49 Laboratory Results - last 24 hr 08/03/19 21:10: Blood Type AB Positive, Antibody Screen Negative 08/03/19 21:10: WBC 12.5 H, RBC 4.46, Hgb 11.2 L, Hct 36.3 L, MCV 81.3, MCH 25.1 L, MCHC 30.9 L, RDW 17.1, Plt Count 429 H, MPV 7.9, Neut % (Auto) 69.4, Lymph % (Auto) 25.3, [place] % (Auto) 2.9, Eos % (Auto) 2.0, Baso % (Auto) 0.4, Neut # (Auto) 8.7 H, Lymph # (Auto) 3.2, [place] # (Auto) 0.4, Eos # (Auto) 0.3, Baso # (Auto) 0.1 08/03/19 21:10: PT 10.3, INR 0.99, APTT 29.4 08/03/19 21:10: Sodium 141, Potassium 4.0, Chloride 106, Carbon Dioxide 21, Anion Gap 18.0 H, BUN 8, Creatinine 1.16 H, Estimated Creat Clear 104, Estimated GFR 51 L, Est GFR ( Amer) 61, Glucose 92, Calcium 10.5 H, Total Bilirubin 0.2, AST 11 L, ALT 10 L, Alkaline Phosphatase 128 H, Total Protein 7.8, Albumin 3.4, Globulin 4.4 H, Albumin/Globulin Ratio 0.8 L 08/03/19 21:10: ESR 65 H 08/03/19 21:10: C-Reactive Protein 1.1 H I & O for Last 24 hours: Intake & Output 08/01/19 08/02/19 08/03/19 08/04/19 11:59 11:59 11:59 11:59 Intake Total 582 / 582 Balance 582 / 582 Weight 235 lb 1.968 oz - Constitutional no acute distress, morbidly obese - *Routine HEENT Exam Head: Present: normocephalic Eye: Present: PERRL ENT: Present: mucous membranes moist - *Routine Neck Exam Present: supple. Absent: lymphadenopathy - *Routine Respiratory Exam Present: CTA bilaterally - *Routine Cardiovascular Exam Present: RRR - *Routine Abdominal Exam Present: soft, normoactive bowel sounds, obese. Absent: tenderness - *Routine Extremities Exam Absent: cyanosis, clubbing, edema Comments: two open areas to rt knee scar - *Routine Skin Exam Present: scars, wounds - *Routine Neurological Exam Present: alert, oriented X3 - Routine Psychiatric Exam Present: normal affect Internal Medicine - CN: Reslt - Labs CBC & Chem 7: 08/03/19 21:10 08/03/19 21:10 Labs: Short CBC 08/03/19 Range/Units 21:10 WBC 12.5 H (4.8-10.8) K/mm3 Hgb 11.2 L (12.2-16.2) g/dL Hct 36.3 L (37.0-47.0) % Plt Count 429 H (142-424) K/mm3 BMP 08/03/19 21:10 Sodium 141 Potassium 4.0 Chloride 106 Carbon Dioxide 21 BUN 8 Creatinine 1.16 H Glucose 92 Calcium 10.5 H Liver Function 08/03/19 Range/Units 21:10 Total Bilirubin 0.2 (0.2-1.0) mg/dL AST 11 L (15-37) U/L ALT 10 L (12-78) U/L Alkaline Phosphatase 128 H (46-116) U/L Albumin 3.4 (3.4-5.0) gm/dL Assessment and Plan (1) Joint prosthesis infection or inflammation Current visit: Yes Status: Acute Category: Medical Code(s): T84.50XA - Infection and inflammatory reaction due to unspecified internal joint prosthesis, initial encounter (2) Obesity Current visit: No Status: Acute Qualifiers: Obesity type: due to excess calories Obesity classification: adult class 3 (BMI >= 40) Serious obesity comorbidity presence: with serious comorbidity Body mass index: BMI 45.0-49.9 Qualified Code(s): E66.01 - Morbid (severe) obesity due to excess calories; Z68.42 - Body mass index (BMI) 45.0-49.9, adult Category: Medical Code(s): E66.9 - Obesity, unspecified (3) Total knee replacement status Current visit: No Status: Acute Qualifiers: Laterality: right Qualified Code(s): Z96.651 - Presence of right artificial knee joint Category: Surgical Code(s): Z96.659 - Presence of unspecified artificial knee joint (4) Fibromyalgia Current visit: No Status: Chronic Category: Medical Code(s): M79.7 - Fibromyalgia (5) HTN (hypertension) Current visit: Yes Status: Acute Category: Medical Code(s): I10 - Essential (primary) hypertension - Assessment and plan all Dx Assessment and Plan for all problems:: rounded with dr lund all orders per dr lund
--- NOTE | 2019-08-04 14:20 | Progress Note ---
[facility] Anesthesia Checklist - Patient Identification Patient Identification: Arm Band, Verbal (Name & ) - Structural Data Admitted From: Home Planned Operative Procedure/s: knee Consent for Planned Operative Procedure(s) Verified: Yes Verified Documents: History and Physical - NPO Status Verified Time NPO: 00:00 - Chart Verification Results Verified: CBC, BMP - Additional verifications Patient : No Anesthesia Reactions: Yes (Wakes up angry, hx PTSD) Hx Blood Transfusions: No Blood Transfusion Reaction: No Cephalosporin Allergy: No Previous Colonoscopy: Yes - Cardiovascular Assessment Heart Sounds: S1 & S2 Pulse Strength: Baseline Pulse Rhythm: Regular Peripheral Edema: No - Airway Assessment C-Spine Mobility Assessed: Yes TMJ Mobility Assessed: Yes Dentition: Edentulous - Neurological Assessment Level of Consciousness: Awake, Alert, Appropriate Hx Seizures: No Numbness or tingling in extremities: No - Anesthesia Plan Anesthesia Risk discussed: Yes Anesthesia Plan: Verified ASA Class: III Anesthesia Type: General [facility] History I have reviewed the patient's past medical history: Yes Medical History: Reports:: Anxiety, Chronic Obstructive Pulmonary Disease (COPD), Depression, Gastroesophageal Reflux Disease(GERD), Hiatal Hernia, Hypertension, Lung Disease, MRSA (toe) Denies:: Cancer, Diabetes Mellitus Type 1, Diabetes Mellitus Type 2, Internal Pacemaker, Seizures *Have you ever received a pneumonia vaccine?: Yes *Have you received a flu vaccine this season?: Yes Other Medical History: Reports: Arthritis, Fibromyalgia, Other. Denies: Blood Transfusion Reaction Anesthesia experience/problems:: none Laterality Cases: Bilateral: Arthroscopy Knee Other Surgeries: Yes: No Previous Surgery, Cholecystectomy, Colonoscopy, EGD, Hysterectomy-Total, Tubal Ligation, Other. No: Pacemaker Amputation: No Fractures: Yes (aisha wrist) - *Social History Educational Level: Completed High School Smoking Status: Current every day smoker Tobacco Type: cigarettes # Packs/Day (cigarettes): 1 Alcohol Intake: never Alcohol Intake Frequency:: other Substance Use Type: denies use *Occupational Status:: unemployed Housing: apartment Household Members: spouse *Travel in the last 8 weeks: None - Psychiatric History Pschychiatric History:: Reports:: Anxiety, Depression Family Hx:: Diabetes
--- NOTE | 2019-08-04 15:26 | Cardiology Report ---
APPROVED REPORT EXAM: Comprehensive 2D, Doppler, and color-flow Echocardiogram [employer]: Nelli Sanchez RVT Ht: 5 ft 4 in Wt: 235lbs BSA: 2.10 BP: 145/80 mmHg Indications: Pre-op, Rt knee TKA infection, COPD,HTN, Smoker,GERD 2D Dimensions LVOT 2.52 cm (M/F) 1.5-2.5 M-Mode Dimensions RVDd 2.70 cm (0.9-2.6)LVDd 4.83 cm (3.5-5.7) LVDs 3.00 cm (3.5-5.7)IVSd 0.72 cm (0.6-1.1) PWd 0.68 cm (0.6-1.1)EF (Teich) 67.90% FS 37.90% EDV (Teich) 109.10 mL ESV (Teich) 35.00 mL LV Diastology E/A Ratio 1.22 Mitral Valve MV A Velocity 53.00 (40-130 cm/s) Left Ventricle Left atrium is mildly enlarged, left ventricle is normal size, there is no concentric left ventricular hypertrophy, visually estimated ejection fraction 55% with no regional wall motion abnormality. Grade 1 diastolic dysfunction seen without tissue Doppler evidence of raise left atrial pressure. Right Ventricle Right atrium and right ventricular mildly enlarged with normal contractility. Aortic Valve Aortic valve is grossly normal, there is no aortic stenosis or aortic insufficiency. Mitral Valve Mitral valve is grossly normal, there is mild mitral regurgitation. Tricuspid Valve Tricuspid valve is grossly normal, there is mild tricuspid regurgitation, tricuspid radiation jet velocity is inadequate for calculation of the right ventricular systolic pressure. Pulmonic Valve Pulmonic valve is poorly visualized. Great Vessels Aortic root is normal size. Pericardium No significant pericardial effusion noted. Conclusion 1. Mild biatrial enlargement, normal left ventricular size, visually estimated ejection fraction 55% with no regional wall motion abnormality, grade 1 diastolic dysfunction seen without tissue Doppler evidence of raise left atrial pressure. 2. Mildly enlarged right ventricle with normal contractility. 3. Mild mitral and tricuspid regurgitation. 4. No significant pericardial effusion noted. Electronically signed by : Ramin Arboleda, 08/04/2019 15:25:21
--- NOTE | 2019-08-04 18:00 | Progress Note ---
[facility] Anesthesia Record Part I Intake, IV Amount: 1,250 Estimated blood loss (mL): 50 Urine output (mL): 0 Blood Products used (#): none Blood Pressure: 110/61 SaO2: 99 Pulse Rate: 112 Respiratory Rate: 20 Temperature: 98.0 F Patient is:: Awake, Nasal O2, Stable Stable to PACU at:: 17:53
--- NOTE | 2019-08-04 18:24 | Operative Note ---
Date of procedure: 08/04/19 Pre-op Diagnosis:: R knee periprosthetic joint infection Post-op Diagnosis:: R knee periprosthetic joint infection Procedure performed:: irrigation and debridement R knee with polyethylene liner exchange Surgeon:: Kiesha Brown MD Cabin Agent(s):: Diya Gu BACKUP ADMINISTRATIVE COORDINATOR:: Abhi Rosety Anesthesia: GETA Estimated blood loss (mL): 100 Clinical Note:: 44yo F s/p R TKA 05/23/19 admitted last night with a draining sinus tract over the superior portion of her incision. I was called around 5:30pm by her physical therapist, who expressed concern that she was draining purulent material. On questioning, the patient says the knee opened up last Wednesday and has been draining for 6 days. She has been cleaning the wound with a Q-tip and cleaning it with alcohol. Previously she had a scab in this location. It has gotten softer as she's showered daily and it eventually fell off. The wound measures around 1.5-2cm in length. I probed this with a Q-tip in PT and it seemed superficial at first, but then there was a pop in the underlying tissue and a siddiqui of pus. I swabbed this and sent it for culture. The patient was last seen in my clinic 07/03/19, at which time her CRP was 1.9. She has not had any fevers at home, though she has had continued pain in the knee. The patient has been very noncompliant post-operatively and has only been to 2 follow-up visits. She did not return for staple removal for 3.5 weeks after surgery. I was concerned for infection given the appearance of her wound, so I aspirated the knee. The cell count was 6606, 51% PMNs, culture negative. Synovasure kit: cell count was 222, negative for alpha-defensin, synovial CRP 46, neutrophil elastase positive, no crystals, microbial panel (synovasure kit) was negative. Serum WBC was 11.3, CRP 6.4. Given the acuity of her surgery I did not feel she was infected at this time. I planned on following this closely, but the patient consistently cancelled or no-showed PT appointments. Her last office visit with me was on 07/03/2019, at which time her serum CRP was 1.9 and her wound appeared to be healing well. I had a high suspicion for periprosthetic joint infection and I discussed treatment options with the patient; I recommend surgical I&D with possible poly exchange. I discussed the risks of the procedure with the patient, including bleeding, neurovascular damage, fracture, persistent infection, need for later 2-stage revision, and risk of anesthesia. The patient vocalized understanding and provided informed consent for the procedure. Operative findings:: purulent material confined to superficial tissues, no pus in the joint cloudy red fluid in joint, some fibrinous tissue but nothing purulent or necrotic Operative note:: The patient was identified in preoperative holding and the right leg signed by myself. Consent was verified with the patient and all questions answered. She was taken to the OR and placed supine on the operative table. General anesthesia was induced; IV antibiotics were held until cultures taken. A non-sterile tourniquet was placed on the upper right thigh and the right leg was prepped first with isopropyl alcohol followed by betadine. Sterile drapes were placed in the usual fashion for knee arthroplasty. Timeout was performed, identifying the correct patient, correct procedure and correct site. Before the procedure was begun, the right knee was aspirated with a sterile 18- gauge needle affixed to a sterile 20cc syringe. Cloudy red fluid was removed, no oracio pus. The right leg was elevated for 3 minutes and the tourniquet was elevated to 300 mmHg; it was not exsanguinated with an esmarch. A sterile 10 blade was used to open the previous incision, taking care to excise the skin around the open wound/draining sinus tract. Subcutaneous tissue was carefully dissected, taking care to identify appropriate planes and develop medial/lateral flaps. No necrotic tissue or purulence identified thus far, with the exception of the soft tissue directly under the open wound. This did not appear to extent any deeper than 1cm beneath the skin and did not appear to track through the capsule into the joint. However, given the appearance of the joint aspirate and suspicion for infection, I decided to open the capsule, debride the joint and change the poly. Median parapatellar arthrotomy was performed with a fresh 10 blade, using the previous arthrotomy from her index procedure; previous ethibond suture was removed. The knee was tight, with abundant scar tissue, particularly in the infrapatellar region. 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 To gain access to the joint today, a small quad snip was necessary, and the act of everting the patella/flexing the knee caused the ossicle to crack. However, the patellar tendon remained attached to the tibia. There was abundant cloudy red fluid in the joint, and no pus. The poly was removed intact and discarded. Using a comination of rongeur and curette, all fibrinous tissue was debrided; a fresh 10 blade was used to debulk the scar tissue. Several fluid and tissue samples were sent for culture, as well as tissue samples for pathology. After debridement, the knee was irrigated with 3L saline with bacitracin using pulsatile lavage. Next, sterile prep scrub brushs were used to physically scrub the femoral and tibial components with hibiclens. The wound was irrigated briefly again, then filled with a sterile betadine solution, which was allowed to sit for 3 minutes. This was suctioned and the knee irrigated with 3L more saline. A new polyethylene component was placed, a [employer] 15mm poly for the Journey II system. This clicked into place and the knee taken through a range of motion; ROM 0-120, stable and still well-bal anced. The wound was then closed in a layered fashion, using 2-0 ethibond on the capsule, 0 and 2-0 vicryl on subcutaneous tissues, and 2-0 nylon on the skin in a horizontal mattress fashion. Also, during closure, 1g vancomycin power was placed into the wound, split between the joint (under capsule) and the subcutaneous tissues above the capsule. The tourniquet was dropped just prior to skin closure and no active bleeding was identified, other than mild capillary oozing. Sterile dressings were applied and a knee immobilizer placed. The patient was awoken from anesthesia, extubated and transferred to PACU in good condition. She tolerated this procedure well without immediate intra-operative adverse event. Tourniquet time (min): 120 Condition: stable Disposition: PACU Specimens:: multiple fluid and tissue cultures sent for gram stain/culture + pathology knee aspirate sent for cell count w/diff, gram stain/culture Complications:: none
--- NOTE | 2019-08-04 18:28 | Progress Note ---
Subjective Date: 08/04/19 Time: 18:30 Principal diagnosis: R knee periprosthetic joint infection Interval history: The patient underwent I&D R knee with poly exchange. See operative note for details. PN: Obj Ex Vital signs: Temp Pulse Resp BP Pulse Ox 98.0 F 107 H 20 143/79 H 98 08/04/19 18:00 08/04/19 18:15 08/04/19 18:15 08/04/19 18:15 08/04/19 18:15 Narrative: patient in PACU - Constitutional no acute distress - Routine HEENT Exam Head: Present: normocephalic Eye: Present: EOMI ENT: Present: mucous membranes moist - Routine Respiratory Exam Present: CTA bilaterally - Routine Cardiovascular Exam Present: RRR - Routine Abdominal Exam Present: soft. Absent: tenderness - Routine Extremities Exam Comments: RLE dressings c/d/i +DF/PF/EHL RLE SILT distally in all distributions RLE palpable pedal pulses RLE, foot warm with BCR R calf soft, non-tender - Routine Skin Exam Present: warm, wounds. Absent: erythema, ecchymosis - Routine Neurological Exam Present: alert, oriented X3, moving all extremities, normal tone, hearing grossly intact, normal speech. Absent: sensory deficit, motor deficit, altered mental status Progress Note: A&P (1) Joint prosthesis infection or inflammation Status: Acute Current Visit: Yes (2) Obesity Status: Acute Current Visit: No (3) Total knee replacement status Status: Acute Current Visit: No (4) Fibromyalgia Status: Chronic Current Visit: No (5) HTN (hypertension) Status: Acute Current Visit: Yes Assessment and Plan for All Diagnoses:: 44yo F POD 0 s/p I&D R knee with poly exchange for periprosthetic joint infection -- WBAT RLE, knee immobilizer for the first 2-3 days -- elevate, ice R knee -- do not remove dressings, reinforce drainage; may perform first dressing change Wednesday at the earliest (1st dressing change to be done by MD) -- PT to eval -- lovenox to start tomorrow -- continue SCD, IS -- continue home medications, pain Rx -- IV ancef, vanc to continue; will modify antibiotics based on culture results -- f/u intra-op pathology report -- PICC line to be placed tomorrow; anticipate 6 weeks of IV antibiotics, will need arrangements for home infusions or transportation to/from [facility] to infusion center
--- NOTE | 2019-08-04 19:37 | Progress Note ---
[facility] Anesthesia Record Part II Discharge Time: 18:35 Destination: Medical Surgical Department PACU nurse assessment reviewed?: Yes Patient Condition:: Good Anesthesia Complications:: None Swallowing reflex intact?: Yes Cyanosis?: No Blood Pressure: 119/81 Pulse Rate: 107 Temperature: 97.7 F Mental Status: Alert & Oriented Pain level:: 2 Nausea and/or vomitting:: None Intake, IV Amount: 25
--- NOTE | 2019-08-05 09:13 | Progress Note ---
Internal Medicine - PN: Subj *Date: 08/06/19 *Time: 10:09 Interval history: pt with improvement but c/o of pain Exam Vital signs and Labs for Last 24 Hours: Temp Pulse Resp BP Pulse Ox 99.4 F 103 H 18 149/75 H 100 08/05/19 07:35 08/05/19 07:35 08/05/19 07:35 08/05/19 07:35 08/05/19 07:35 I & O for Last 24 hours: Intake & Output 08/02/19 08/03/19 08/04/19 08/05/19 11:59 11:59 11:59 11:59 Intake Total 582 / 582 1375 / 1375 Balance 582 / 582 1375 / 1375 Weight 235 lb 14.314 oz 235 lb 1.968 oz Microbiology Reports for the Last 24 Hours: Microbiology 08/04/19 Unknown Knee,Right - Deep Gram Stain - Final 08/04/19 Unknown Knee,Right - Superficial Gram Stain - Final 08/04/19 Unknown Knee,Right - Deep Gram Stain - Final 08/04/19 Unknown Aspirate - Right Gram Stain - Final - Constitutional no acute distress - *Routine HEENT Exam Head: Present: normocephalic Eye: Present: EOMI, PERRL ENT: Present: mucous membranes dry - *Routine Neck Exam Absent: JVD - *Routine Respiratory Exam Absent: respiratory distress - *Routine Cardiovascular Exam Present: RRR - *Routine Abdominal Exam Present: soft - *Routine Extremities Exam Comments: rt lower leg wraps - *Routine Skin Exam Present: intact - *Routine Neurological Exam Present: alert, CN II-XII intact - Routine Psychiatric Exam Present: normal affect Assessment and Plan (1) Joint prosthesis infection or inflammation Current visit: Yes Status: Acute Category: Medical Code(s): T84.50XA - Infection and inflammatory reaction due to unspecified internal joint prosthesis, initial encounter (2) Obesity Current visit: No Status: Acute Qualifiers: Obesity type: due to excess calories Obesity classification: adult class 3 (BMI >= 40) Serious obesity comorbidity presence: with serious comorbidity Body mass index: BMI 45.0-49.9 Qualified Code(s): E66.01 - Morbid (severe) obesity due to excess calories; Z68.42 - Body mass index (BMI) 45.0-49.9, adult Category: Medical Code(s): E66.9 - Obesity, unspecified (3) Total knee replacement status Current visit: No Status: Acute Qualifiers: Laterality: right Qualified Code(s): Z96.651 - Presence of right artificial knee joint Category: Surgical Code(s): Z96.659 - Presence of unspecified artificial knee joint (4) Fibromyalgia Current visit: No Status: Chronic Category: Medical Code(s): M79.7 - Fibromyalgia (5) HTN (hypertension) Current visit: Yes Status: Acute Category: Medical Code(s): I10 - Essential (primary) hypertension (6) Anemia Current visit: No Status: Acute Qualifiers: Anemia type: unspecified type Qualified Code(s): D64.9 - Anemia, unspecified Category: Medical Code(s): D64.9 - Anemia, unspecified
--- NOTE | 2019-08-05 10:13 | Pharmacy Consult Notes ---
- Pharmacy Consult Date: 08/05/19 Time: 10:12 Referring provider: DR. GERMAN Reason for Consult:: VANCOMYCIN DOSING Allergies and ADEs:: Allergies Allergy/AdvReac Type Severity Reaction Status Date / Time latex Allergy Unknown Verified 08/04/19 07:39 allergy reaction Home Medications:: Home Medications Medication Instructions Recorded Confirmed Type budesonide-formoterol HFA 160 1 puff INHALATION DAILY #10 g 09/14/18 08/03/19 Rx mcg-4.5 mcg/actuation aerosol inhaler ranitidine HCl 150 mg tablet 150 mg PO BID #180 tab 03/07/19 08/03/19 Rx ondansetron 8 mg disintegrating 8 mg PO Q8H PRN #30 tab 05/05/19 08/03/19 Rx tablet alprazolam 0.5 mg tablet 0.5 mg PO BID #60 tab 05/08/19 08/03/19 Rx gabapentin 600 mg tablet 600 mg PO QID #120 tab 05/08/19 08/03/19 Rx cholecalciferol (vitamin D3) 125 5,000 unit PO DAILY #90 cap 05/15/19 08/03/19 Rx mcg (5,000 unit) capsule Albuterol Sulfate [Albuterol HFA 1 puff IH DAILY 05/23/19 08/03/19 History Inhaler] lisinopriL [Lisinopril 10mg Tab] 20 mg PO DAILY 05/23/19 08/03/19 History Enoxaparin Sodium [Lovenox 30 mg SQ Q12H 08/03/19 08/03/19 History 30mg/0.3mL syringe] Metoprolol Succinate 50 mg PO DAILY 08/03/19 08/03/19 History Omeprazole [Omeprazole 20mg Tab] 20 mg PO BID 08/03/19 08/04/19 History Oxycodone HCl/Acetaminophen 7.5 mg PO Q12 PRN 08/03/19 08/03/19 History [Oxycodone W/Apap 325mg Tablet] Quetiapine Fumarate 400 mg PO HS 08/03/19 08/03/19 History quetiapine 100 mg tablet 100 mg PO HS #90 tab 08/03/19 08/03/19 Rx Height: 1.63 m Weight: 106.65 kg Medical History: Reports:: Anxiety, Chronic Obstructive Pulmonary Disease (COPD), Depression, Gastroesophageal Reflux Disease(GERD), Hiatal Hernia, Hypertension, Lung Disease, MRSA (toe) Denies:: Cancer, Diabetes Mellitus Type 1, Diabetes Mellitus Type 2, Internal Pacemaker, Seizures Assessment and Plan (1) Joint prosthesis infection or inflammation Current visit: Yes Status: Acute Category: Medical Code(s): T84.50XA - Infection and inflammatory reaction due to unspecified internal joint prosthesis, initial encounter (2) Obesity Current visit: No Status: Acute Qualifiers: Obesity type: due to excess calories Obesity classification: adult class 3 (BMI >= 40) Serious obesity comorbidity presence: with serious comorbidity Body mass index: BMI 45.0-49.9 Qualified Code(s): E66.01 - Morbid (severe) obesity due to excess calories; Z68.42 - Body mass index (BMI) 45.0-49.9, adult Category: Medical Code(s): E66.9 - Obesity, unspecified (3) Total knee replacement status Current visit: No Status: Acute Qualifiers: Laterality: right Qualified Code(s): Z96.651 - Presence of right artificial knee joint Category: Surgical Code(s): Z96.659 - Presence of unspecified artificial knee joint (4) Fibromyalgia Current visit: No Status: Chronic Category: Medical Code(s): M79.7 - Fibromyalgia (5) HTN (hypertension) Current visit: Yes Status: Acute Category: Medical Code(s): I10 - Essential (primary) hypertension - Assessment and plan all Dx Assessment and Plan for all problems:: BASED ON PATIENT FACTORS, RECOMMEND INITIATING VANCOMYCIN AT 2,000MG IV EVERY 18 HOURS. PHARMACY WILL MONITOR AND ADJUST DOSE APPROPRIATE. -SILVIA LESTERD
--- NOTE | 2019-08-05 11:43 | Progress Note ---
Subjective Date: 08/05/19 Time: 11:15 Principal diagnosis: R knee periprosthetic joint infection Interval history: Patient is status post I&D with poly-exchange right knee for periprosthetic joint infection, post op day #1. Patient is lying down on the bed and says she i s doing well. She reports significant pain in her knee worse with any attempts at mobilizing the knee. She says the pain is well controlled with pain medication. Physical therapy is in the room to start postop rehab as ordered by Dr. Brown. No history of any nausea or vomiting. No history of any cough, chest pain, shortness of breath or palpitations. Patient is eating and drinking well. Patient had PICC line placed earlier this morning. PN: Obj Ex Vital signs: Temp Pulse Resp BP Pulse Ox 99.4 F 103 H 18 149/75 H 100 08/05/19 07:35 08/05/19 07:35 08/05/19 07:35 08/05/19 07:35 08/05/19 07:35 Narrative: Intake & Output 08/02/19 08/03/19 08/04/19 08/05/19 11:59 11:59 11:59 11:59 Intake Total 582 / 582 1375 / 1375 Balance 582 / 582 1375 / 1375 Weight 235 lb 14.314 oz 235 lb 1.968 oz Microbiology 08/04/19 Unknown Knee,Right - Deep Gram Stain - Final 08/04/19 Unknown Knee,Right - Superficial Gram Stain - Final 08/04/19 Unknown Knee,Right - Deep Gram Stain - Final 08/04/19 Unknown Aspirate - Right Gram Stain - Final Exam General appearance: alert, active, awake, no acute distress Cardiovascular: regular rate & rhythm, S1-S2 heard, normal peripheral pulses Respiratory: No respiratory distress, breathing nonlabored; speaking in full sentences Abdomen: Soft and nontender, normal bowel sounds Neuro: alert, oriented x 3 Psych: Appropriate mood/affect for her situation; communicates well Extremities: On examination of the right knee, the surgical dressings and Fernando bandages are in place; they are clean, dry and intact. No soakage or strikethrough of the dressings noted. Distal pulses are 1+. Capillary refill is brisk. Sensation is intact light touch throughout; she is able to actively mobilize the foot and ankle. No signs of DVT or compartment syndrome noted. Progress Note: A&P (1) Joint prosthesis infection or inflammation Status: Acute Current Visit: Yes (2) Obesity Status: Acute Current Visit: No (3) Total knee replacement status Status: Acute Current Visit: No (4) Fibromyalgia Status: Chronic Current Visit: No (5) HTN (hypertension) Status: Acute Current Visit: Yes Assessment and Plan for All Diagnoses:: Status post I&D right knee with poly-exchange for periprosthetic infection, postoperative day #1, doing well- -Start/continue physical therapy-mobilize weightbearing as tolerated on the right lower extremity; knee immobilizer for 2 to 3 days/until regains full quadriceps control. -Continue elevation, icing and active range of foot and ankle movements. -Continue DVT prophylaxis -Continue SCD and incentive spirometry -Continue IV antibiotics as ordered -Ordered postop CBC, BMP, ESR and CRP today -Continue medical management as per Dr. Tucker.
[2019-08-05 13:17] LABS: Basophils % 0.3 % (0.1-2.0); Eosinophils # 0.2 K/mm3 (0.0-0.4); Eosinophils % 2.6 % (0.1-12.0); Hematocrit 27.6 % (37.0-47.0); Hemoglobin 8.6 g/dL (12.2-16.2); Lymphocytes # 3.2 K/mm3 (0.7-4.5); Lymphocytes % 35.4 % (10-50); Mean Corpuscular HGB Conc 31.1 g/dL (31.8-35.4); Mean Corpuscular Volume 81.1 fl (81-99); Mean Platelet Volume 7.7 fl (7.4-10.4); Monocytes # 0.4 K/mm3 (0.1-1.0); Monocytes % 4.7 % (1.7-9.3); Neutrophils # 5.2 K/mm3 (1.8-7.8); Platelet Count 369 K/mm3 (142-424); Red Cell Distribution Width 17.7 % (11.5-17.5); White Blood Count 9.1 K/mm3 (4.8-10.8)
[2019-08-05 13:20] LABS: Anion Gap 13.4 mEq/L (5-15); C-Reactive Protein 1.8 mg/dL (0.0-0.9)
[2019-08-05 14:02] LABS: Calcium 9.2 mg/dL (8.5-10.1)
--- NOTE | 2019-08-05 20:57 | Electrocardiograph Report ---
APPROVED REPORT Exam: Resting ECG HR:91 bpm ECG Measurements Heart Rate 91 AXES IN 172 P 70 QRSd 88 QRS 14 QT 354 T46 QTc 435 <Conclusion> Normal sinus rhythm Low voltage QRS Borderline ECG Electronically signed by : Abhi Shannon, 08/05/2019 20:57:23
[2019-08-06 07:08] LABS: Basophils % 0.3 % (0.1-2.0); Eosinophils # 0.2 K/mm3 (0.0-0.4); Eosinophils % 3.2 % (0.1-12.0); Hemoglobin 8.2 g/dL (12.2-16.2); Lymphocytes # 2.5 K/mm3 (0.7-4.5); Lymphocytes % 36.9 % (10-50); Mean Corpuscular HGB Conc 30.5 g/dL (31.8-35.4); Mean Corpuscular Volume 82.2 fl (81-99); Mean Platelet Volume 8.3 fl (7.4-10.4); Monocytes # 0.4 K/mm3 (0.1-1.0); Monocytes % 5.7 % (1.7-9.3); Neutrophils # 3.7 K/mm3 (1.8-7.8); Neutrophils % 53.8 % (37.0-80.0); Platelet Count 318 K/mm3 (142-424); Red Blood Count 3.29 M/mm3 (4.20-5.40); Red Cell Distribution Width 17.7 % (11.5-17.5); White Blood Count 6.9 K/mm3 (4.8-10.8)
[2019-08-06 07:13] LABS: Hematocrit 27.1 % (37.0-47.0)
[2019-08-06 07:19] LABS: Anion Gap 13.3 mEq/L (5-15); C-Reactive Protein 2.3 mg/dL (0.0-0.9); Calcium 9.1 mg/dL (8.5-10.1)
--- NOTE | 2019-08-06 10:16 | Progress Note ---
Internal Medicine - PN: Subj *Date: 08/06/19 *Time: 10:14 Interval history: sitting in chair c/o burning to thigh - no cough or sob - feels ok - infl markers elevated - hgb 8.2 Exam Vital signs and Labs for Last 24 Hours: Temp Pulse Resp BP Pulse Ox 99.5 F 99 H 19 116/57 L 98 08/06/19 07:35 08/06/19 07:35 08/06/19 07:35 08/06/19 07:35 08/06/19 07:35 Laboratory Results - last 24 hr 08/05/19 13:00: WBC 9.1 D, RBC 3.40 L, Hgb 8.6 L, Hct 27.6 L, MCV 81.1, MCH 25.3 L, MCHC 31.1 L, RDW 17.7 H, Plt Count 369, MPV 7.7, Neut % (Auto) 57.0, Lymph % (Auto) 35.4, [place] % (Auto) 4.7, Eos % (Auto) 2.6, Baso % (Auto) 0.3, Neut # (Auto) 5.2, Lymph # (Auto) 3.2, [place] # (Auto) 0.4, Eos # (Auto) 0.2, Baso # (Auto) 0.0 08/05/19 13:00: ESR 113 H 08/05/19 13:00: Sodium 141, Potassium 3.4 L, Chloride 107, Carbon Dioxide 24, Anion Gap 13.4, BUN 9, Creatinine 1.25 H, Estimated Creat Clear 97, Estimated GFR 47 L, Est GFR ( Amer) 56 L, Glucose 102, Calcium 9.2 D, C-Reactive Protein 1.8 H D 08/06/19 06:40: WBC 6.9, RBC 3.29 L, Hgb 8.2 L, Hct 27.1 L, MCV 82.2, MCH 25.1 L , MCHC 30.5 L, RDW 17.7 H, Plt Count 318, MPV 8.3, Neut % (Auto) 53.8, Lymph % (Auto) 36.9, [place] % (Auto) 5.7, Eos % (Auto) 3.2, Baso % (Auto) 0.3, Neut # (Auto) 3.7, Lymph # (Auto) 2.5, [place] # (Auto) 0.4, Eos # (Auto) 0.2, Baso # (Auto) 0.0 08/06/19 06:40: Sodium 143, Potassium 3.3 L, Chloride 109 H, Carbon Dioxide 24, Anion Gap 13.3, BUN 6 L D, Creatinine 0.98 D, Estimated Creat Clear 63, Estimated GFR 62, Est GFR ( Amer) 75 D, Glucose 93, Calcium 9.1, C- Reactive Protein 2.3 H D I & O for Last 24 hours: Intake & Output 08/03/19 08/04/19 08/05/19 08/06/19 11:59 11:59 11:59 11:59 Intake Total 582 / 582 1375 / 1375 2935 / 2935 Balance 582 / 582 1375 / 1375 2935 / 2935 Weight 235 lb 14.314 oz 235 lb 1.968 oz 243 lb 5 oz Microbiology Reports for the Last 24 Hours: Microbiology 08/04/19 Unknown Knee,Right - Superficial Gram Stain - Final 08/04/19 Unknown Knee,Right - Superficial Surgical Biopsy Culture - Preliminary 08/04/19 Unknown Knee,Right - Deep Gram Stain - Final 08/04/19 Unknown Knee,Right - Deep Surgical Biopsy Culture - Preliminary 08/04/19 Unknown Knee,Right - Deep Gram Stain - Final 08/04/19 Unknown Knee,Right - Deep Wound Culture - Preliminary NO GROWTH AFTER 24 HOURS 08/04/19 Unknown Aspirate - Right Gram Stain - Final 08/04/19 Unknown Aspirate - Right Body Fluid Culture - Preliminary NO GROWTH AFTER 24 HOURS - Constitutional no acute distress - *Routine HEENT Exam Head: Present: normocephalic Eye: Present: EOMI, PERRL ENT: Present: mucous membranes dry - *Routine Neck Exam Present: supple - *Routine Respiratory Exam Absent: respiratory distress - *Routine Cardiovascular Exam Present: RRR - *Routine Abdominal Exam Present: soft - *Routine Extremities Exam Comments: eladia wrap with no reddness ot firmness to thigh - pp ok - *Routine Skin Exam Present: intact - *Routine Neurological Exam Present: alert, CN II-XII intact - Routine Psychiatric Exam Present: normal affect Assessment and Plan (1) Joint prosthesis infection or inflammation Current visit: Yes Status: Acute Category: Medical Code(s): T84.50XA - Infection and inflammatory reaction due to unspecified internal joint prosthesis, initial encounter (2) Obesity Current visit: No Status: Acute Qualifiers: Obesity type: due to excess calories Obesity classification: adult class 3 (BMI >= 40) Serious obesity comorbidity presence: with serious comorbidity Body mass index: BMI 45.0-49.9 Qualified Code(s): E66.01 - Morbid (severe) obesity due to excess calories; Z68.42 - Body mass index (BMI) 45.0-49.9, adult Category: Medical Code(s): E66.9 - Obesity, unspecified (3) Total knee replacement status Current visit: No Status: Acute Qualifiers: Laterality: right Qualified Code(s): Z96.651 - Presence of right artificial knee joint Category: Surgical Code(s): Z96.659 - Presence of unspecified artificial knee joint (4) Fibromyalgia Current visit: No Status: Chronic Category: Medical Code(s): M79.7 - Fibromyalgia (5) HTN (hypertension) Current visit: Yes Status: Acute Category: Medical Code(s): I10 - Essential (primary) hypertension (6) Anemia Current visit: No Status: Acute Qualifiers: Anemia type: unspecified type Qualified Code(s): D64.9 - Anemia, unspecif ied Category: Medical Code(s): D64.9 - Anemia, unspecified
--- NOTE | 2019-08-06 19:19 | Progress Note ---
Subjective Date: 08/06/19 Time: 18:30 Principal diagnosis: R knee periprosthetic joint infection Interval history: Patient is status post I&D with poly-exchange right knee for periprosthetic joint infection, post op day # 2. Patient is sitting out on the chair and says s he is doing well. She reports that the pain is better controlled today but still reports significant pain with activity. She says the pain is well controlled with as needed pain medication. Started mobilizing with physical therapy weightbearing as tolerated no history of any nausea or vomiting. No history of any cough, chest pain, shortness of breath or palpitations. Patient is eating and drinking well. PN: Obj Ex Vital signs: Temp Pulse Resp BP Pulse Ox 98.8 F 95 H 17 143/76 H 96 08/06/19 16:00 08/06/19 16:00 08/06/19 16:00 08/06/19 16:00 08/06/19 16:00 Narrative: Laboratory Results - last 24 hr 08/06/19 06:40: WBC 6.9, RBC 3.29 L, Hgb 8.2 L, Hct 27.1 L, MCV 82.2, MCH 25.1 L , MCHC 30.5 L, RDW 17.7 H, Plt Count 318, MPV 8.3, Neut % (Auto) 53.8, Lymph % (Auto) 36.9, [place] % (Auto) 5.7, Eos % (Auto) 3.2, Baso % (Auto) 0.3, Neut # (Auto) 3.7, Lymph # (Auto) 2.5, [place] # (Auto) 0.4, Eos # (Auto) 0.2, Baso # (Auto) 0.0 08/06/19 06:40: Sodium 143, Potassium 3.3 L, Chloride 109 H, Carbon Dioxide 24, Anion Gap 13.3, BUN 6 L D, Creatinine 0.98 D, Estimated Creat Clear 63, Estimated GFR 62, Est GFR ( Amer) 75 D, Glucose 93, Calcium 9.1, C- Reactive Protein 2.3 H D Microbiology 08/04/19 Unknown Knee,Right - Deep Gram Stain - Final 08/04/19 Unknown Knee,Right - Deep Wound Culture - Preliminary NO GROWTH AFTER 48 HOURS 08/04/19 Unknown Aspirate - Right Gram Stain - Final 08/04/19 Unknown Aspirate - Right Body Fluid Culture - Preliminary NO GROWTH AFTER 48 HOURS 08/04/19 Unknown Knee,Right - Superficial Gram Stain - Final 08/04/19 Unknown Knee,Right - Superficial Surgical Biopsy Culture - Preliminary 08/04/19 Unknown Knee,Right - Deep Gram Stain - Final 08/04/19 Unknown Knee,Right - Deep Surgical Biopsy Culture - Preliminary Exam General appearance: alert, active, awake, no acute distress Cardiovascular: regular rate & rhythm, S1-S2 heard, normal peripheral pulses Respiratory: No respiratory distress, breathing nonlabored; speaking in full sentences Abdomen: Soft and nontender, normal bowel sounds Neuro: alert, oriented x 3 Psych: Appropriate mood/affect for her situation; communicates well Extremities: On examination of the right knee, the surgical dressings and Fernando bandages are in place; they are clean, dry and intact. I have changed the dressings today and there is minimal soakage of the dressings with blood; no discharge or erythema noted. Sterile bordered gauze dressing and Fernando bandages applied. Distal pulses are 1+. Capillary refill is brisk. Sensation is intact light touch throughout; she is able to actively mobilize the foot and ankle. No signs of DVT or compartment syndrome noted. Progress Note: A&P (1) Joint prosthesis infection or inflammation Status: Acute Current Visit: Yes (2) Obesity Status: Acute Current Visit: No (3) Total knee replacement status Status: Acute Current Visit: No (4) Fibromyalgia Status: Chronic Current Visit: No (5) HTN (hypertension) Status: Acute Current Visit: Yes (6) Anemia Status: Acute Current Visit: No Assessment and Plan for All Diagnoses:: Status post I&D right knee with poly-exchange for periprosthetic infection, postoperative day # 2, doing well- -Microbiology showing no growth at 48 hours. -Continue physical therapy-mobilize weightbearing as tolerated on the right lower extremity; knee immobilizer for 2 to 3 days/until regains full quadriceps control. -Continue elevation, icing and active range of foot and ankle movements. -Continue DVT prophylaxis -Continue SCD and incentive spirometry -Continue IV antibiotics as ordered -Continue medical management as per Dr. Tucker.
[2019-08-07 07:26] LABS: Basophils % 0.4 % (0.1-2.0); Eosinophils # 0.4 K/mm3 (0.0-0.4); Eosinophils % 5.6 % (0.1-12.0); Hematocrit 27.9 % (37.0-47.0); Hemoglobin 8.4 g/dL (12.2-16.2); Lymphocytes # 1.6 K/mm3 (0.7-4.5); Lymphocytes % 24.9 % (10-50); Mean Corpuscular HGB Conc 30.2 g/dL (31.8-35.4); Mean Corpuscular Volume 82.6 fl (81-99); Mean Platelet Volume 7.9 fl (7.4-10.4); Monocytes # 0.3 K/mm3 (0.1-1.0); Monocytes % 4.5 % (1.7-9.3); Neutrophils # 4.1 K/mm3 (1.8-7.8); Neutrophils % 64.7 % (37.0-80.0); Platelet Count 312 K/mm3 (142-424); Red Blood Count 3.38 M/mm3 (4.20-5.40); Red Cell Distribution Width 17.4 % (11.5-17.5); White Blood Count 6.3 K/mm3 (4.8-10.8)
[2019-08-07 07:54] LABS: Anion Gap 14.4 mEq/L (5-15); Calcium 9.2 mg/dL (8.5-10.1)
--- NOTE | 2019-08-07 09:00 | Consult Report ---
*Admission Date: 08/03/19 *Reason for consult:: medical *History of present illness: 44yo F s/p R TKA 05/23/19 admitted this evening with a draining sinus tract over the superior portion of her incision. I was called around 5:30pm by her physical therapist, who expressed concern that she was draining purulent material. On questioning, the patient says the knee opened up last Wednesday and has been draining for 6 days. She has been cleaning the wound with a Q-tip and cleaning it with alcohol. Previously she had a scab in this location. It has gotten softer as she's showered daily and it eventually fell off. The wound measures around 1.5-2cm in length. I probed this with a Q-tip in PT and it seemed superficial at first, but then there was a pop in the underlying tissue and a siddiqui of pus. I swabbed this and sent it for culture. The patient was last seen in my clinic 07/03/19, at which time her CRP was 1.9. She has not had any fevers at home, though she has had continued pain in the knee. The patient has been very noncompliant post-operatively and has only been to 2 follow-up visits. She did not return for staple removal for 3.5 weeks after surgery. I was concerned for infection given the appearance of her wound, so I aspirated the knee. The cell count was 6606, 51% PMNs, culture negative. Synovasure kit: cell count was 222, negative for alpha-defensin, synovial CRP 46, neutrophil elastase positive, no crystals, microbial panel (synovasure kit) was negative. Serum WBC was 11.3, CRP 6.4. Given the acuity of her surgery I did not feel she was infected at this time. I planned on following this closely, but the patient consistently cancelled or no-showed PT appointments. Her last office visit with me was on 07/03/2019, at which time her serum CRP was 1.9 and her wound appeared to be healing well. [facility] History I have reviewed the patient's past medical history: Yes Medical History: Reports:: Anxiety, Chronic Obstructive Pulmonary Disease (COPD), Depression, Gastroesophageal Reflux Disease(GERD), Hiatal Hernia, Hypertension, Lung Disease, MRSA (toe) Denies:: Cancer, Diabetes Mellitus Type 1, Diabetes Mellitus Type 2, Internal Pacemaker, Seizures *Have you ever received a pneumonia vaccine?: Yes *Have you received a flu vaccine this season?: Yes Other Medical History: Reports: Arthritis, Fibromyalgia, Other. Denies: Blood Transfusion Reaction Anesthesia experience/problems:: none Laterality Cases: Bilateral: Arthroscopy Knee Other Surgeries: Yes: No Previous Surgery, Cholecystectomy, Colonoscopy, EGD, Hysterectomy-Total, Tubal Ligation, Other. No: Pacemaker Amputation: No Fractures: Yes (aisha wrist) - *Social History Educational Level: Completed High School Smoking Status: Current every day smoker Tobacco Type: cigarettes # Packs/Day (cigarettes): 1 Alcohol Intake: never Alcohol Intake Frequency:: other Substance Use Type: denies use *Occupational Status:: unemployed Housing: apartment Household Members: spouse *Travel in the last 8 weeks: None - Psychiatric History Pschychiatric History:: Reports:: Anxiety, Depression Family Hx:: Diabetes Review of Systems - Review of Systems Review of systems:: pertinent systems reviewed and negative unless documented below - Constitutional Denies body ache(s), Denies fatigue - Eyes Denies blurry vision - ENT Denies bleeding gums - *Cardiovascular Denies chest pain with activity, Denies excessive sweating - *Respiratory Denies chest congestion, Denies excessive phlegm production - *Gastrointestinal Denies nausea, Denies vomiting - *Genitourinary Denies vaginal discharge - *Musculoskeletal Reports joint pain, Reports limited joint movement, Reports muscle weakness, Reports stiffness - Integumentary/Breasts Denies rash - *Neurologic Denies dizziness, Denies restless legs, Denies weakness - Psychiatric Denies anxiety - Endocrine Denies excessive sweating - Hematologic/Lymphatic Denies easy bruising - Allergic/Immunologic Denies itchy eyes Meds Home Medications Medication Instructions Recorded Confirmed Type budesonide-formoterol HFA 160 1 puff INHALATION DAILY #10 g 09/14/18 08/03/19 Rx mcg-4.5 mcg/actuation aerosol inhaler ranitidine HCl 150 mg tablet 150 mg PO BID #180 tab 03/07/19 08/03/19 Rx ondansetron 8 mg disintegrating 8 mg PO Q8H PRN #30 tab 05/05/19 08/03/19 Rx tablet alprazolam 0.5 mg tablet 0.5 mg PO BID #60 tab 05/08/19 08/03/19 Rx gabapentin 600 mg tablet 600 mg PO QID #120 tab 05/08/19 08/03/19 Rx cholecalciferol (vitamin D3) 125 5,000 unit PO DAILY #90 cap 05/15/19 08/03/19 Rx mcg (5,000 unit) capsule Albuterol Sulfate [Albuterol HFA 1 puff IH DAILY 05/23/19 08/03/19 History Inhaler] lisinopriL [Lisinopril 10mg Tab] 20 mg PO DAILY 05/23/19 08/03/19 History Enoxaparin Sodium [Lovenox 30 mg SQ Q12H 08/03/19 08/03/19 History 30mg/0.3mL syringe] Metoprolol Succinate 50 mg PO DAILY 08/03/19 08/03/19 History Omeprazole [Omeprazole 20mg Tab] 20 mg PO BID 08/03/19 08/04/19 History Oxycodone HCl/Acetaminophen 7.5 mg PO Q12 PRN 08/03/19 08/03/19 History [Oxycodone W/Apap 325mg Tablet] Quetiapine Fumarate 400 mg PO HS 08/03/19 08/03/19 History quetiapine 100 mg tablet 100 mg PO HS #90 tab 08/03/19 08/03/19 Rx Allergies Allergy/AdvReac Type Severity Reaction Status Date / Time latex Allergy Unknown Verified 08/04/19 07:39 allergy reaction Exam Vital signs and Labs for Last 24 Hours: Temp Pulse Resp BP Pulse Ox 98.9 F 105 H 16 147/86 H 92 L 08/07/19 08:00 08/07/19 08:00 08/07/19 08:00 08/07/19 08:00 08/07/19 08:00 Laboratory Results - last 24 hr 08/07/19 07:17: WBC 6.3, RBC 3.38 L, Hgb 8.4 L, Hct 27.9 L, MCV 82.6, MCH 24.9 L , MCHC 30.2 L, RDW 17.4, Plt Count 312, MPV 7.9, Neut % (Auto) 64.7, Lymph % (Auto) 24.9, [place] % (Auto) 4.5, Eos % (Auto) 5.6, Baso % (Auto) 0.4, Neut # (Auto) 4.1, Lymph # (Auto) 1.6, [place] # (Auto) 0.3, Eos # (Auto) 0.4, Baso # (Auto) 0.0 08/07/19 07:17: Sodium 141, Potassium 3.4 L, Chloride 107, Carbon Dioxide 23, Anion Gap 14.4, BUN 6 L, Creatinine 0.96, Estimated Creat Clear 65, Estimated GFR 63, Est GFR ( Amer) 76, Glucose 129 H, Calcium 9.2 I & O for Last 24 hours: Intake & Output 08/04/19 08/05/19 08/06/19 08/07/19 11:59 11:59 11:59 11:59 Intake Total 582 / 582 1375 / 1375 3055 / 3055 3161 / 3161 Balance 582 / 582 1375 / 1375 3055 / 3055 3161 / 3161 Weight 235 lb 14.314 oz 235 lb 1.968 oz 243 lb 5 oz 240 lb 7 oz Microbiology Reports for the Last 24 Hours: Microbiology 08/04/19 Unknown Knee,Right - Superficial Gram Stain - Final 08/04/19 Unknown Knee,Right - Superficial Surgical Biopsy Culture - Preliminary 08/04/19 Unknown Knee,Right - Deep Gram Stain - Final 08/04/19 Unknown Knee,Right - Deep Wound Culture - Preliminary NO GROWTH AFTER 48 HOURS 08/04/19 Unknown Aspirate - Right Gram Stain - Final 08/04/19 Unknown Aspirate - Right Body Fluid Culture - Preliminary NO GROWTH AFTER 48 HOURS 08/04/19 Unknown Knee,Right - Deep Gram Stain - Final 08/04/19 Unknown Knee,Right - Deep Surgical Biopsy Culture - Preliminary - Constitutional no acute distress, obese - *Routine HEENT Exam Head: Present: normocephalic Eye: Present: PERRL ENT: Present: mucous membranes moist - *Routine Neck Exam Present: supple. Absent: lymphadenopathy - *Routine Respiratory Exam Present: CTA bilaterally - *Routine Cardiovascular Exam Present: RRR - *Routine Abdominal Exam Present: soft, normoactive bowel sounds. Absent: tenderness - *Routine Extremities Exam Present: full ROM, normal capillary refill. Absent: cyanosis, clubbing, edema Comments: knee imob to rt leg with eladia - *Routine Skin Exam Present: warm. Absent: rash Comments: dressing c/d/i - *Routine Neurological Exam Present: alert, oriented X3 - Routine Psychiatric Exam Present: normal affect Internal Medicine - CN: Reslt - Labs CBC & Chem 7: 08/07/19 07:17 08/07/19 07:17 Labs: Short CBC 08/07/19 Range/Units 07:17 WBC 6.3 (4.8-10.8) K/mm3 Hgb 8.4 L (12.2-16.2) g/dL Hct 27.9 L (37.0-47.0) % Plt Count 312 (142-424) K/mm3 BMP 08/07/19 07:17 Sodium 141 Potassium 3.4 L Chloride 107 Carbon Dioxide 23 BUN 6 L Creatinine 0.96 Glucose 129 H Calcium 9.2 Assessment and Plan (1) Joint prosthesis infection or inflammation Current visit: Yes Status: Acute Category: Medical Code(s): T84.50XA - Infection and inflammatory reaction due to unspecified internal joint prosthesis, initial encounter (2) Obesity Current visit: No Status: Acute Qualifiers: Obesity type: due to excess calories Obesity classification: adult class 3 (BMI >= 40) Serious obesity comorbidity presence: with serious comorbidity Body mass index: BMI 45.0-49.9 Qualified Code(s): E66.01 - Morbid (severe) obesity due to excess calories; Z68.42 - Body mass index (BMI) 45.0-49.9, adult Category: Medical Code(s): E66.9 - Obesity, unspecified (3) Total knee replacement status Current visit: No Status: Acute Qualifiers: Laterality: right Qualified Code(s): Z96.651 - Presence of right artificial knee joint Category: Surgical Code(s): Z96.659 - Presence of unspecified artificial knee joint (4) Fibromyalgia Current visit: No Status: Chronic Category: Medical Code(s): M79.7 - Fibromyalgia (5) HTN (hypertension) Current visit: Yes Status: Acute Category: Medical Code(s): I10 - Essential (primary) hypertension (6) Anemia Current visit: No Status: Acute Qualifiers: Anemia type: unspecified type Qualified Code(s): D64.9 - Anemia, unspecified Category: Medical Code(s): D64.9 - Anemia, unspecified - Assessment and plan all Dx Assessment and Plan for all problems:: rounded with kevon all orders per kevon ok to dc from medical standpoint
--- NOTE | 2019-08-07 13:43 | Progress Note ---
Subjective Date: 08/07/19 Time: 12:30 Principal diagnosis: R knee periprosthetic joint infection Interval history: The patient is doing well today, pain is managed with oral medications. PICC placed over the weekend, IV vanc/ancef being given. Cultures from wound culture 08/03/19 growing enterococcus/strep. Remaining cultures pending. PN: Obj Ex Vital signs: Temp Pulse Resp BP Pulse Ox 98.9 F 105 H 16 147/86 H 92 L 08/07/19 08:00 08/07/19 08:00 08/07/19 08:00 08/07/19 08:00 08/07/19 08:00 - Constitutional no acute distress - Routine Extremities Exam Comments: R knee incision c/d/i, sutures intact, no periwound erythema/drainage (dressing changed) +DF/PF/EHL RLE SILT distally RLE in all distributions R calf soft, non-tender palpable pedal pulses RLE, brisk cap refill Progress Note: A&P (1) Joint prosthesis infection or inflammation Status: Acute Current Visit: Yes (2) Obesity Status: Acute Current Visit: No (3) Total knee replacement status Status: Acute Current Visit: No (4) Fibromyalgia Status: Chronic Current Visit: No (5) HTN (hypertension) Status: Acute Current Visit: Yes (6) Anemia Status: Acute Current Visit: No Assessment and Plan for All Diagnoses:: 44yo F POD 3 s/p I&D/washout with poly exchange R TKA -- will give today's vancomycin dose, which is timed for 5pm -- will then d/c home with home health to start tomorrow; will switch to daptomycin 650mg IV q24hr + ertrapenem 1g IV q24hr -- WBAT RLE, d/c knee immobilizer -- home health PT -- may briefly shower, change dressing once daily; no creams/topical ointment on wound, just gentle cleansing with mild soap (no scrubbing) and cover with clean bandage -- elevate/ice RLE as needed -- DVT prophy: ASA 325mg daily -- will give Rx for pain medications; as she recovers, will transition back to pain management physician -- f/u with me in clinic Wednesday08/14/19; will want XR before + ESR/CRP/CBC
--- NOTE | 2019-08-07 16:35 | Discharge Summary ---
General - General Admission date:: 08/03/19 Discharge date: 08/07/19 HPI HPI: 44yo F s/p R TKA 05/23/19 admitted 08/03/19 with a draining sinus tract over the superior portion of her incision. I was called around 5:30pm by her physical therapist, who expressed concern that she was draining purulent material. On questioning, the patient says the knee opened up last Wednesday and has been draining for 6 days. She has been cleaning the wound with a Q-tip and cleaning it with alcohol. Previously she had a scab in this location. It has gotten softer as she's showered daily and it eventually fell off. The wound measures around 1.5-2cm in length. I probed this with a Q-tip in PT and it seemed superficial at first, but then there was a pop in the underlying tissue and a siddiqui of pus. I swabbed this and sent it for culture. The patient was last seen in my clinic 07/03/19, at which time her CRP was 1.9. She has not had any fevers at home, though she has had continued pain in the knee. The patient has been very noncompliant post-operatively and has only been to 2 follow-up visits. She did not return for staple removal for 3.5 weeks after surgery. I was concerned for infection given the appearance of her wound, so I aspirated the knee. The cell count was 6606, 51% PMNs, culture negative. Synovasure kit: cell count was 222, negative for alpha-defensin, synovial CRP 46, neutrophil elastase positive, no crystals, microbial panel (synovasure kit) was negative. Serum WBC was 11.3, CRP 6.4. Given the acuity of her surgery I did not feel she was infected at this time. I planned on following this closely, but the patient consistently cancelled or no-showed PT appointments. Her last office visit with me was on 07/03/2019, at which time her serum CRP was 1.9 and her wound appeared to be healing well. Hospital Course Hospital Course: The patient was taken to the OR on 08/04/19 for washout/poly exchange. Extensive irrigation and debridement was performed with multiple culture swabs and tissue culture samples sent. A new polyethylene component was placed. Vancomycin power was placed in the wound. IV ancef/vanc continued until 08/07/19, when it was switched to daptomycin and ertrapenem. Wound culture from 08/03/19 (swabbed in PT) was seen to be growing enterococcus and strep; cultures from intra-op are pending. To date, only the superficial tissue culture from surgery showed organisms on gram stain. There were no medical issues during her stay, vitals remained stable, pain controlled with oral meds, patient was eating/drinking and voiding sufficiently. She was medically appropriate for discharge on 08/07/19. Home health has been arranged for dressing changes, IV antibiotic infusions and physical therapy. I will see her back in clinic on 08/14/19 for anticipated suture removal, XR and CBC/ESR/CRP. Objective Vital signs: Temp Pulse Resp BP Pulse Ox 98.9 F 105 H 16 147/86 H 92 L 08/07/19 08:00 08/07/19 08:00 08/07/19 08:00 08/07/19 08:00 08/07/19 08:00 no acute distress - *Routine HEENT Exam Head: Present: normocephalic Eye: Present: EOMI ENT: Present: mucous membranes moist - *Routine Respiratory Exam Present: CTA bilaterally. Absent: accessory muscle use, wheezes - *Routine Cardiovascular Exam Present: RRR - *Routine Abdominal Exam Present: soft. Absent: tenderness - *Routine Extremities Exam Comments: R knee incision c/d/i, sutures intact, no periwound erythema/drainage (dressing changed) +DF/PF/EHL RLE SILT distally RLE in all distributions R calf soft, non-tender palpable pedal pulses RLE, brisk cap refill - *Routine Skin Exam Present: warm. Absent: gangrene, ecchymosis - *Routine Neurological Exam Present: alert, oriented X3, moving all extremities, normal tone, hearing grossly intact, normal speech. Absent: sensory deficit, motor deficit, altered mental status Results Completed studies during hospitalization [Text1]: Laboratory Results - last 24 hr 08/07/19 07:17: WBC 6.3, RBC 3.38 L, Hgb 8.4 L, Hct 27.9 L, MCV 82.6, MCH 24.9 L , MCHC 30.2 L, RDW 17.4, Plt Count 312, MPV 7.9, Neut % (Auto) 64.7, Lymph % (Auto) 24.9, Ritchie % (Auto) 4.5, Eos % (Auto) 5.6, Baso % (Auto) 0.4, Neut # (Auto) 4.1, Lymph # (Auto) 1.6, Ritchie # (Auto) 0.3, Eos # (Auto) 0.4, Baso # (Auto) 0.0 08/07/19 07:17: Sodium 141, Potassium 3.4 L, Chloride 107, Carbon Dioxide 23, Anion Gap 14.4, BUN 6 L, Creatinine 0.96, Estimated Creat Clear 65, Estimated GFR 63, Est GFR ( Amer) 76, Glucose 129 H, Calcium 9.2 08/07/19 12:30: Vancomycin Trough 15.6 Labs on day of discharge: Labs from last 24 hours 08/07/19 08/07/19 08/07/19 12:30 07:17 07:17 WBC 6.3 RBC 3.38 L Hgb 8.4 L Hct 27.9 L MCV 82.6 MCH 24.9 L MCHC 30.2 L RDW 17.4 Plt Count 312 MPV 7.9 Neut % (Auto) 64.7 Lymph % (Auto) 24.9 Ritchie % (Auto) 4.5 Eos % (Auto) 5.6 Baso % (Auto) 0.4 Neut # (Auto) 4.1 Lymph # (Auto) 1.6 Ritchie # (Auto) 0.3 Eos # (Auto) 0.4 Baso # (Auto) 0.0 Sodium 141 Potassium 3.4 L Chloride 107 Carbon Dioxide 23 Anion Gap 14.4 BUN 6 L Creatinine 0.96 Estimated Creat Clear 65 Estimated GFR 63 Est GFR ( Amer) 76 Glucose 129 H Calcium 9.2 Vancomycin Trough 15.6 Preliminary micro results at discharge 08/04/19 Unknown Body Fluid Culture - Preliminary Aspirate - Right NO GROWTH AFTER 72 HOURS 08/04/19 Unknown Surgical Biopsy Culture - Preliminary Knee,Right - Deep 08/04/19 Unknown Surgical Biopsy Culture - Preliminary Knee,Right - Superficial 08/04/19 Unknown Wound Culture - Preliminary Knee,Right - Deep NO GROWTH AFTER 48 HOURS DS: Diagnosis - Discharge Diagnosis (1) Joint prosthesis infection or inflammation Status: Acute (2) Obesity Status: Acute (3) Total knee replacement status Status: Acute (4) Fibromyalgia Status: Chronic (5) HTN (hypertension) Status: Acute (6) Anemia Status: Acute Discharge Plan - Patient Discharge Instructions ACTIVITY: Continue current activity, Ambulate as tolerated DIET: continue same diet Additional Instructions: -- home health to start tomorrow; will continue daptomycin 650mg IV q24hr + ertrapenem 1g IV q24hr -- WBAT RLE, d/c knee immobilizer -- home health PT -- may briefly shower, change dressing once daily; no creams/topical ointment on wound, just gentle cleansing with mild soap (no scrubbing) and cover with clean bandage -- elevate/ice RLE as needed -- DVT prophy: ASA 325mg daily -- will give Rx for pain medications; as she recovers, will transition back to pain management physician -- f/u with me in clinic Wednesday08/14/19; will want XR before + ESR/CRP/CBC Patient Instructions: DI for Wound Dehiscence, DI for Debridement of a Wound, Infection, or Burn, Peripherally Inserted Central Catheter, DI for Surgical Site Infection, Peripherally Inserted Central Catheter Infections, DI for Bone and Joint Infections - Follow up Plan Follow up with: Kiesha Brown MD [Primary Care Provider] - 08/14/19 2:00 pm Disposition: Home Health Service Home Medications: Home Medications Medication Instructions Recorded Confirmed Type budesonide-formoterol HFA 160 1 puff INHALATION DAILY #10 g 09/14/18 08/03/19 Rx mcg-4.5 mcg/actuation aerosol inhaler ranitidine HCl 150 mg tablet 150 mg PO BID #180 tab 03/07/19 08/03/19 Rx ondansetron 8 mg disintegrating 8 mg PO Q8H PRN #30 tab 05/05/19 08/03/19 Rx tablet alprazolam 0.5 mg tablet 0.5 mg PO BID #60 tab 05/08/19 08/03/19 Rx gabapentin 600 mg tablet 600 mg PO QID #120 tab 05/08/19 08/03/19 Rx cholecalciferol (vitamin D3) 125 5,000 unit PO DAILY #90 cap 05/15/19 08/03/19 Rx mcg (5,000 unit) capsule Albuterol Sulfate [Albuterol HFA 1 puff IH DAILY 05/23/19 08/03/19 History Inhaler] lisinopriL [Lisinopril 10mg Tab] 20 mg PO DAILY 05/23/19 08/03/19 History Enoxaparin Sodium [Lovenox 30 mg SQ Q12H 08/03/19 08/03/19 History 30mg/0.3mL syringe] Metoprolol Succinate 50 mg PO DAILY 08/03/19 08/03/19 History Omeprazole [Omeprazole 20mg Tab] 20 mg PO BID 08/03/19 08/04/19 History Quetiapine Fumarate 400 mg PO HS 08/03/19 08/03/19 History quetiapine 100 mg tablet 100 mg PO HS #90 tab 08/03/19 08/03/19 Rx Oxycodone HCl/Acetaminophen 7.5 mg PO Q4-6H PRN #30 tab 08/07/19 Rx [Oxycodone W/Apap 325mg Tablet] Prescriptions/Medication Reconciliation: New Non Formulary [Pt's Own Medication] 0 each PO DAILY each Continued budesonide-formoterol HFA 160 mcg-4.5 mcg/actuation aerosol inhaler 1 puff INHALATION DAILY #10 g ranitidine HCl 150 mg tablet 150 mg PO BID #180 tab ondansetron 8 mg disintegrating tablet 8 mg PO Q8H PRN #30 tab PRN Reason: nausea and vomiting gabapentin 600 mg tablet 600 mg PO QID #120 tab cholecalciferol (vitamin D3) 125 mcg (5,000 unit) capsule 5,000 unit PO DAILY #90 cap alprazolam 0.5 mg tablet 0.5 mg PO BID #60 tab quetiapine 100 mg tablet 100 mg PO HS #90 tab lisinopriL [Lisinopril 10mg Tab] 20 mg PO DAILY Albuterol Sulfate [Albuterol HFA Inhaler] 1 puff IH DAILY Metoprolol Succinate 50 mg PO DAILY Quetiapine Fumarate 400 mg PO HS Omeprazole [Omeprazole 20mg Tab] 20 mg PO BID Changed Oxycodone HCl/Acetaminophen [Oxycodone W/Apap 325mg Tablet] 7.5 mg PO Q4-6H PRN #30 tab PRN Reason: Moderate To Severe Pain Discontinued Enoxaparin Sodium [Lovenox 30mg/0.3mL syringe] 30 mg SQ Q12H - Problem Reconciliation Problems Reviewed?: Yes
== END 2019-08-07 17:20 | disposition home health service (06) | DRG 486 ==
LOC: 2ND → OBSVTOIN 18:27
PROVIDERS: ADMIT Orthopaedic Surgery; ATTEND Orthopaedic Surgery
CPT/HCPCS: 36569; 71010; 71020; 71045; 71046; 73560; 73564; 80048; 80053; 80202; 85025; 85610; 85651; 85730; 86140; 86850; 87070; 87075; 87077; 87186; 87205; 88305; 89051; 93005; 93306; 94640; 97110; 97116; 97161; 97530; C1751; C1776; J0131; J0878; J1335; J2405; J3370

== ENCOUNTER → 2019-08-03 18:29 | Outpatient (CLI) | payer BC, SELFPAY | PROVIDERS: Visit Provider Orthopaedic Surgery | DX: T84.50XA Infection and inflammatory reaction due to unspecified internal joint prosthesis, initial encounter (principal); Z96.651 Presence of right artificial knee joint | CPT/HCPCS: 87070; 87077; 87186; 87205 ==

== ENCOUNTER → 2019-08-14 13:26 | Outpatient (CLI) | payer BC, SELFPAY ==
--- NOTE | 2019-08-14 13:52 | XR_ITS ---
PROCEDURE: XR KNEE RT 3V CLINICAL INDICATION: s/p Rt TKA washout Follow-up joint washout COMPARISON: XR KNEE RT 2V from 05/23/2019 XR KNEE RT 3V from 06/15/2019 XR KNEE RT 4V from 08/03/2019 XR KNEE RT 2V from 08/04/2019 FINDINGS: Status post total knee arthroplasty placement with good alignment. No erosive changes are evident. Previously noted soft tissue gas is not apparent. Ununited ossification center noted at the tibial tuberosity. Other findings:None. IMPRESSION: Good alignment status post total knee replacement Dictated by: Ferdinand Olvera MD 08/14/2019 14:56 Electronically signed by Ferdinand Olvera MD in [place] 08/14/2019 14:56
[2019-08-14 14:43] LABS: Basophils % 0.3 % (0.1-2.0); Eosinophils # 0.4 K/mm3 (0.0-0.4); Hematocrit 29.3 % (37.0-47.0); Hemoglobin 9.2 g/dL (12.2-16.2); Lymphocytes # 3.3 K/mm3 (0.7-4.5); Lymphocytes % 43.7 % (10-50); Mean Corpuscular HGB Conc 31.5 g/dL (31.8-35.4); Mean Corpuscular Hemoglobin 25.1 pg (27.0-31.2); Mean Corpuscular Volume 79.8 fl (81-99); Mean Platelet Volume 8.1 fl (7.4-10.4); Monocytes # 0.2 K/mm3 (0.1-1.0); Monocytes % 2.8 % (1.7-9.3); Neutrophils # 3.6 K/mm3 (1.8-7.8); Neutrophils % 48.2 % (37.0-80.0); Platelet Count 506 K/mm3 (142-424); Red Blood Count 3.68 M/mm3 (4.20-5.40); Red Cell Distribution Width 17.4 % (11.5-17.5); White Blood Count 7.5 K/mm3 (4.8-10.8)
[2019-08-14 15:37] LABS: Erythrocyte Sedimentation Rate 89 mm/hr (0-20)
== END ==
PROVIDERS: Visit Provider Orthopaedic Surgery
DX: M25.561 Pain in right knee (principal); Z96.659 Presence of unspecified artificial knee joint
CPT/HCPCS: 73562; 85025; 85651; 86140

== ENCOUNTER 2019-08-28 14:10 | Outpatient (CLI) | payer BC, SELFPAY ==
[2019-08-28 15:04] LABS: Basophils % 0.2 % (0.1-2.0); Eosinophils # 0.7 K/mm3 (0.0-0.4); Eosinophils % 8.7 % (0.1-12.0); Hematocrit 31.2 % (37.0-47.0); Hemoglobin 9.5 g/dL (12.2-16.2); Lymphocytes # 2.2 K/mm3 (0.7-4.5); Lymphocytes % 28.9 % (10-50); Mean Corpuscular HGB Conc 30.5 g/dL (31.8-35.4); Mean Corpuscular Hemoglobin 24.6 pg (27.0-31.2); Mean Corpuscular Volume 80.7 fl (81-99); Mean Platelet Volume 7.6 fl (7.4-10.4); Monocytes # 0.4 K/mm3 (0.1-1.0); Neutrophils # 4.5 K/mm3 (1.8-7.8); Neutrophils % 57.3 % (37.0-80.0); Platelet Count 418 K/mm3 (142-424); Red Blood Count 3.86 M/mm3 (4.20-5.40); Red Cell Distribution Width 18.3 % (11.5-17.5); White Blood Count 7.8 K/mm3 (4.8-10.8)
[2019-08-28 15:46] LABS: Erythrocyte Sedimentation Rate 78 mm/hr (0-20)
[2019-08-28 15:55] LABS: Anion Gap 11.8 mEq/L (5-15); Blood Urea Nitrogen 5 mg/dl (7-17); Calcium 10.8 mg/dl (8.4-10.2); Carbon Dioxide 24 mmol/L (22.0-30.0); Chloride 107 mmol/L (98-107); Estimated Glomerular Filt Rate 91 ml/min (>60); GFR (African American) 110 ML/MIN (>60); Glucose 104 mg/dl (74-100); Potassium 3.8 mmoL/L (3.5-5.1); Sodium 139 mmol/L (136-145)
[2019-08-28 16:00] LABS: C-Reactive Protein 2.5 mg/L (0-4)
== END 2019-08-28 14:35 | disposition home or self-care (01) ==
LOC: LAB 14:10 → INF 14:19
PROVIDERS: PCP Emergency Medicine; Visit Provider Orthopaedic Surgery
DX: T84.59XA Infection and inflammatory reaction due to other internal joint prosthesis, initial encounter (principal); Z96.651 Presence of right artificial knee joint
CPT/HCPCS: 80048; 85025; 85651; 86140

== ENCOUNTER 2019-09-04 17:03 | Outpatient (RCR) | payer BC, SELFPAY ==
--- NOTE | 2019-09-04 18:03 | HMH.PTOPEV ---
PT Outpatient Evaluation Rehab PT Outpatient Evaluation Start: 09/04/19 17:16 Freq: Status: Active Protocol: Document 09/04/19 17:16 ALONSOJUDITH (Rec: 09/04/19 18:03 LAURA [id number]) Electronically Signed By Adi Corona, PT 09/04/19 17:16 Outpatient Therapy Subjective History Subjective History This is the initial Physical Therapy evaluation for Alejandro Madsen. Pt had R TKA May 23 2019. Pt was very non-compliant w/ f/u visits and PT. Pt eventually had infxn and needed I&D which was done 08/04/19. Pt now report to PT for resumed therapy after I&D. Chief Complaint Pain,Stiff Symptom Type Ache,Throb,Sharp,Stabbing, Burning,Numbness Symptoms Relieved By Rest/Positioning,Ice, Prescription Meds Symptoms Aggravated By Physical Activity,Walking Prior Functional Limitations None Current Functional Limitations Housework,Standing,Squatting, Recreation Activity,Walking, Stairs Level of pain today (0-10) 4 Pain scale - at its best (0-10) 2 Pain scale - at its worst (0-10) 4 Hip/Knee Eval Gait Observation General Gait Pattern Observation Antalgic Gait Assistive Device Assistive Devices Straight Cane MMT left Knee Extension Strength Grade 4 Good Knee Flexion Strength Grade 4 Good right Knee Extension Strength Grade 3 Fair Knee Flexion Strength Grade 3+ Fair+ ROM Knee Extension Active Range of Motion ( 15 from neutral degrees) Knee Flexion Active Range of Motion ( 90 degrees) Outpatient Therapy Assessment Impairments Problems/Impairmments Impaired Range of Motion, Impaired Strength,Impaired Gait Pattern,Impaired Walking, Impaired Standing,Impaired Driving,Impaired Shower/ Bathing,Impaired Household Care,Impaired Stair Climbing, Impaired Stepping on Uneven Surface,Impaired Squatting, Impaired Recreational Activities,Impaired Balance, Subjective C/O Pain,Impaired Self Care/Self Management Prognosis Rehab Potential Fair Clinical Impression Consistent with Diagnosis Yes
== END 2019-09-04 18:05 | disposition home or self-care (01) ==
LOC: PT 17:03
PROVIDERS: PCP Physician Assistant; Visit Provider Orthopaedic Surgery
DX: T84.53XD Infection and inflammatory reaction due to internal right knee prosthesis, subsequent encounter (principal); M25.561 Pain in right knee; Z96.651 Presence of right artificial knee joint
CPT/HCPCS: 97110; 97163

== ENCOUNTER 2019-09-15 13:40 | Outpatient (CLI) | payer BC, SELFPAY ==
[2019-09-15 14:05] LABS: Basophils % 0.5 % (0.1-2.0); Eosinophils # 1.1 K/mm3 (0.0-0.4); Eosinophils % 11.3 % (0.1-12.0); Hematocrit 32.4 % (37.0-47.0); Hemoglobin 10.4 g/dL (12.2-16.2); Lymphocytes # 2.5 K/mm3 (0.7-4.5); Lymphocytes % 26.1 % (10-50); Mean Corpuscular Hemoglobin 25.2 pg (27.0-31.2); Mean Corpuscular Volume 78.7 fl (81-99); Mean Platelet Volume 7.7 fl (7.4-10.4); Monocytes # 0.4 K/mm3 (0.1-1.0); Monocytes % 4.1 % (1.7-9.3); Neutrophils # 5.5 K/mm3 (1.8-7.8); Neutrophils % 58.1 % (37.0-80.0); Platelet Count 436 K/mm3 (142-424); Red Blood Count 4.12 M/mm3 (4.20-5.40); White Blood Count 9.5 K/mm3 (4.8-10.8)
[2019-09-15 14:30] LABS: Erythrocyte Sedimentation Rate 83 mm/hr (0-20)
[2019-09-15 14:32] LABS: Alanine Aminotransferase 11 U/L (12-78); Albumin Level 3.8 g/dl (3.5-5.0); Albumin/Globulin Ratio 1.2 (1.1-1.8); Alkaline Phosphatase 116 U/L (38-126); Anion Gap 11.5 mEq/L (5-15); Aspartate Amino Transferase 19 U/L (14-36); Blood Urea Nitrogen 7 mg/dl (7-17); Calcium 11.3 mg/dl (8.4-10.2); Carbon Dioxide 23 mmol/L (22.0-30.0); Chloride 108 mmol/L (98-107); Estimated Glomerular Filt Rate 109 ml/min (>60); GFR (African American) 131 ML/MIN (>60); Globulin 3.2 g/dL (1.3-3.2); Glucose 98 mg/dl (74-100); Potassium 4.5 mmoL/L (3.5-5.1); Sodium 138 mmol/L (136-145)
[2019-09-15 14:34] LABS: Bilirubin,Total < 0.1 mg/dl (0.2-1.3)
[2019-09-15 14:37] LABS: C-Reactive Protein 8.4 mg/L (0-4)
--- NOTE | 2019-09-15 15:07 | XR_ITS ---
PROCEDURE: XR KNEE RT 3V CLINICAL INDICATION: knee pain Follow-up total knee replacement COMPARISON: XR KNEE RT 3V from 06/15/2019 XR KNEE RT 4V from 08/03/2019 XR KNEE RT 2V from 08/04/2019 XR KNEE RT 3V from 08/14/2019 FINDINGS: Good alignment status post total knee replacement. No evidence of complications. Fragmented tibial tuberosity is noted as a normal variant. IMPRESSION: Good alignment status post total knee replacement Dictated by: Ferdinand Olvera MD 09/15/2019 15:32 Electronically signed by Ferdinand Olvera MD in [place] 09/15/2019 15:32
== END 2019-09-15 15:08 | disposition home or self-care (01) ==
LOC: INF 13:41
PROVIDERS: Visit Provider Orthopaedic Surgery
DX: T84.59XA Infection and inflammatory reaction due to other internal joint prosthesis, initial encounter (principal); Z96.651 Presence of right artificial knee joint
CPT/HCPCS: 73562; 80053; 85025; 85651; 86140

== ENCOUNTER → 2019-09-21 15:30 | Outpatient (CLI) | payer BC, SELFPAY | PROVIDERS: Visit Provider Orthopaedic Surgery | DX: Z45.2 Encounter for adjustment and management of vascular access device (principal); Z48.00 Encounter for change or removal of nonsurgical wound dressing | CPT/HCPCS: 96523 ==

== ENCOUNTER 2019-09-29 14:01 | Outpatient (CLI) | payer BC, SELFPAY ==
[2019-09-29 14:06] VITALS: BMI 38.4
[2019-09-29 14:34] LABS: Basophils # 0.1 K/mm3 (0-0.2); Basophils % 0.8 % (0.1-2.0); Eosinophils # 0.6 K/mm3 (0.0-0.4); Eosinophils % 7.5 % (0.1-12.0); Hemoglobin 10.1 g/dL (12.2-16.2); Lymphocytes # 2.3 K/mm3 (0.7-4.5); Lymphocytes % 28.3 % (10-50); Mean Corpuscular HGB Conc 31.6 g/dL (31.8-35.4); Mean Corpuscular Hemoglobin 25.3 pg (27.0-31.2); Mean Corpuscular Volume 79.9 fl (81-99); Mean Platelet Volume 8.1 fl (7.4-10.4); Monocytes # 0.3 K/mm3 (0.1-1.0); Monocytes % 3.8 % (1.7-9.3); Neutrophils # 4.9 K/mm3 (1.8-7.8); Neutrophils % 59.6 % (37.0-80.0); Platelet Count 397 K/mm3 (142-424); Red Blood Count 4.01 M/mm3 (4.20-5.40); Red Cell Distribution Width 18.6 % (11.5-17.5); White Blood Count 8.2 K/mm3 (4.8-10.8)
[2019-09-29 14:40] LABS: Anion Gap 11.9 mEq/L (5-15); Blood Urea Nitrogen 7 mg/dl (7-17); Calcium 10.4 mg/dl (8.4-10.2); Carbon Dioxide 24 mmol/L (22.0-30.0); Chloride 108 mmol/L (98-107); Creatinine Clearance Estimated 165 mL/min (50-200); Estimated Glomerular Filt Rate 91 ml/min (>60); GFR (African American) 110 ML/MIN (>60); Glucose 99 mg/dl (74-100); Potassium 3.9 mmoL/L (3.5-5.1); Sodium 140 mmol/L (136-145)
[2019-09-29 14:46] LABS: C-Reactive Protein 3.7 mg/L (0-4)
[2019-09-29 14:58] LABS: Erythrocyte Sedimentation Rate 85 mm/hr (0-20)
--- NOTE | 2019-09-29 15:00 | PC.NURSE ---
1500-went to dr. ortiz's office and removed picc line per md order; picc line intact and patent 47 cm long same as insertion length.
== END 2019-09-29 14:20 | disposition home or self-care (01) ==
LOC: INF 14:01
PROVIDERS: Visit Provider Orthopaedic Surgery
DX: Z45.2 Encounter for adjustment and management of vascular access device (principal); M25.561 Pain in right knee; Z96.651 Presence of right artificial knee joint
CPT/HCPCS: 80048; 85025; 85651; 86140; G0463

== ENCOUNTER → 2020-11-20 17:22 | Outpatient (CLI) | payer BC, SELFPAY ==
[2020-11-20 18:25] LABS: Amphetamine/Metha Screen,Urine Negative ng/ml (<1000); Barbiturates Screen,Urine Negative ng/ml (<200)
[2020-11-20 18:26] LABS: Benzodiazepines Screen,Urine Negative ng/ml (<200)
[2020-11-20 18:27] LABS: Cannabinoid Screen,Urine Positive ng/ml (<50); Cocaine Screen,Urine Negative ng/ml (<300)
[2020-11-20 18:28] LABS: Methadone Screen,Urine Negative ng/ml (<300)
[2020-11-20 18:29] LABS: Opiate Screen,Urine Negative ng/ml (<300); Phencyclidine Screen,Urine Negative ng/ml (<25)
== END ==
PROVIDERS: Visit Provider Physician Assistant
DX: Z79.899 Other long term (current) drug therapy (principal)
CPT/HCPCS: 80305

== ENCOUNTER 2021-01-07 15:47 | Emergency (ER) | payer BC, SELFPAY ==
[2021-01-07 15:50] VITALS: BP 151/96; PULSE 102; RESP 18; TEMP 36.8; O2SAT 97; BMI 41.5
[2021-01-07 15:55] VITALS: BP 151/96; PULSE 102; RESP 18; TEMP 36.8; O2SAT 97; BMI 41.5
--- NOTE | 2021-01-07 16:02 | XR_ITS ---
PROCEDURE: XR KNEE RT 3V CLINICAL INDICATION: FALL Pain COMPARISON: CR XR KNEE RT 4V from 08/03/2019 CR XR KNEE RT 2V from 08/04/2019 CR XR KNEE RT 3V from 08/14/2019 CR XR KNEE RT 3V from 09/15/2019 FINDINGS: Status post total knee replacement. There is good alignment. No acute fracture or dislocation is evident. IMPRESSION: Status post total knee replacement. No acute finding Dictated by: Ferdinand Olvera MD 01/07/2021 16:30 Ferdinand Olvera MD in [place] 01/07/2021 16:30
--- NOTE | 2021-01-07 16:02 | XR_ITS ---
PROCEDURE: XR FOOT RT MIN 3V CLINICAL INDICATION: FALL Pain COMPARISON: No exams were available for comparison FINDINGS: No fracture or dislocation. No lytic or blastic change. There is normal mineralization. The joint spaces are well-preserved. No significant degenerative/arthritic changes. No erosive changes evident. Other findings:None. IMPRESSION: No acute findings. Dictated by: Ferdinand Olvera MD 01/07/2021 16:30 Ferdinand Olvera MD in [place] 01/07/2021 16:30
--- NOTE | 2021-01-07 16:02 | XR_ITS ---
PROCEDURE: XR ANKLE RT MIN 3V CLINICAL INDICATION: FALL Pain COMPARISON: No exams were available for comparison FINDINGS: No fracture or dislocation. No lytic or blastic change. There is normal mineralization. The joint spaces are well-preserved. No significant degenerative/arthritic changes. No erosive changes evident. Other findings:None. IMPRESSION: No acute findings. Dictated by: Ferdinand Olvera MD 01/07/2021 16:28 Ferdinand Olvera MD in [place] 01/07/2021 16:28
--- NOTE | 2021-01-07 16:10 | HMH.EDUTC ---
[facility] [place] Disposition Clinical Impression: Foot pain, right Disposition: Home, Self-Care Condition on Discharge: Good Instructions: DI for Foot Pain, How to Use a Walking Boot Additional Instructions: *weight bearing as tolerated while wearing the walking boot as you was advised in your initial visit at [facility] *RICE, Rest the extremity, Ice 15-20 minutes 3-4 times daily, Compress- wear the fernando wrap as discussed as much as possible to help reduce swelling and pain, Elevate the extremity when at rest *Fernando wrap is for support and help control swelling, use it except in the shower. 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 If need something more can take Tylenol in between doses of Ibuprofen to help Immediately follow up with your family doctor for new or worsening of symptoms, or no noticeable improvement over the next 3-5 days Referrals: Ifeoma Pate PA [Primary Care Provider] - As needed Sumi Greenwood DPM [Staff Physician] - (As scheduled) Time of Disposition: 16:58 Medical Decision Making - Mark Inquiry Pt receiving controlled substance: No Mark was queried for this patient: No Vital Signs: 01/07/21 15:50 01/07/21 15:55 01/07/21 16:39 Temperature 98.3 F 98.3 F 98.3 F Temperature Source Oral Oral Pulse Rate 102 H Pulse Rate [Right Brachial] 102 H 102 H Respiratory Rate 18 18 18 Blood Pressure 151/96 H Blood Pressure [Right Arm] 151/96 H 151/96 H Blood Pressure Mean [Right Arm] 114 114 Blood Pressure Source [Right Arm] Automatic Cuff Automatic Cuff Blood Pressure Position [Right Arm] Sitting Sitting 02 Sat by Pulse Oximetry 97 97 Oxygen Delivery Method Room Air Room Air Orders (Tests/Meds): ED MEDICATIONS Discontinued Medications Generic Name Dose Route Start Last Admin Trade Name Freq PRN Reason Stop Dose Admin Ketorolac Tromethamine 60 mg 01/07/21 16:44 01/07/21 16:47 Ketorolac 60mg/2ml Vial IM 01/07/21 16:45 60 mg ONCE ONE Administration - Radiology Data #1 Image(s): Knee Image Reviewed: Yes I have reviewed radiologist's interpretation Status post total knee replacement. No acute finding #2 Image(s): Ankle Image Reviewed: Yes I have reviewed radiologist's interpretation No acute findings. #3 Image(s): Foot/Toes Image Reviewed: Yes I have reviewed radiologist's interpretation No acute findings. Medical Decision Narrative: Discussed with patient and recommended shot of Toradol to help with pain and Patient and family arguing in room Patient states that she wants something stronger if she can get it in the ER Discussed with patient that she may need to see PCP if she needs something stronger for pain but if she wanted to go to the ED she could be sent there but it is the providers discretion what he may prescribe her and she states that she was only given one loratab at [place] while she was in the ER and sent her in some Baclofen and Diclofenac but she never got it filled because it doesnt work for her, never helped her in the past but she would go to the ER and get something stronger if she could get something stronger than Toradol, again advised patient she could be sent but it was at the providers discretion to prescribe stronger pain medication that is controlled and her xray was back and read by Radiology and no fracture Patient then agreed to take the Toradol injection in the [facility] and follow up with her PCP discussed with patient that she needed to get her medication filled and try it to see if it may help with her pain and to make sure that she keeps her appointment with Podiatry as scheduled Patient advised that she is suppose to be wearing a walking boot, no boot on patient in [facility] patient educated t
[2021-01-07 16:39] VITALS: BP 151/96; PULSE 102; RESP 18; TEMP 36.8; O2SAT 97
== END 2021-01-07 17:03 | disposition home or self-care (01) ==
PROVIDERS: Emergency Provider Nurse Practitioner; PCP Physician Assistant
DX: M79.671 Pain in right foot (principal); I10 Essential (primary) hypertension; Z91.040 Latex allergy status; F17.210 Nicotine dependence, cigarettes, uncomplicated; Z79.899 Other long term (current) drug therapy
CPT/HCPCS: 73562; 73610; 73630; 96372; 99202; G0463

== ENCOUNTER 2021-01-30 16:56 | Emergency (ER) | payer BC, SELFPAY ==
[2021-01-30 16:57] VITALS: BP 155/103; PULSE 104; RESP 18; TEMP 37.1; O2SAT 96; BMI 43.7
--- NOTE | 2021-01-30 17:20 | XR_ITS ---
PROCEDURE INFORMATION: Exam: XR Right Ankle Exam date and time: 01/30/2021 5:20 PM Age: 45 years old Clinical indication: Injury or trauma; Fall; Swelling (edema); Ankle; Bilateral; Injury date: 01/30/21 TECHNIQUE: Imaging protocol: XR Right ankle. Views: 3 or more views. Total images: 3 COMPARISON: CR XR ANKLE RT MIN 3V 01/07/2021 4:05 PM FINDINGS: Bones/joints: No fractures. No blastic or lytic lesions. The ankle mortise joint is well maintained. Suspect small ankle joint effusion with mild prominence of the anterior recess. The visualized hindfoot and midfoot are grossly well aligned. No hindfoot coalition. Soft tissues: No periostitis or osteolysis. Moderate lateral soft tissue swelling. No radiopaque foreign bodies. IMPRESSION: 1. No fracture or dislocation. 2. Moderate lateral soft tissue swelling and suspected small ankle joint effusion.
--- NOTE | 2021-01-30 18:19 | HMH.EDGENADL ---
ED Disposition Clinical Impression: Ankle sprain and strain Fall Qualifiers: Encounter type: initial encounter Qualified Code(s): W19.XXXA - Unspecified fall, initial encounter Disposition: Home, Self-Care Condition on Discharge: Good Instructions: Sprain Additional Instructions: Elevate your right ankle/leg. Work on range of motion. Ice/heat as needed. Tylenol/Motrin as needed. Discussed physical therapy with your regular nurse practitioner. Referrals: Ifeoma Pate PA [Primary Care Provider] - 3 days Time of Disposition: 18:22 - Critical Care Critical Care Time: No Attestation: On 01/30/21, the high probability of a clinically significant, sudden or life threatening deterioration of the following system(s) required my full and direct attention, intervention and personal management. The time I documented below is in addition to time spent performing reported procedures but includes the following listed in this critical care notation. Medical Decision Making - Medical Records Medical records reviewed: Yes: I reviewed the patient's medical records. - Mark Inquiry Pt receiving controlled substance: No Vital Signs: 01/30/21 16:57 Temperature 98.8 F Temperature Source Oral Pulse Rate [Left] 104 H Respiratory Rate 18 Blood Pressure [Right Arm] 155/103 H Blood Pressure Mean [Right Arm] 120 Blood Pressure Source [Right Arm] Automatic Cuff Blood Pressure Position [Right Arm] Sitting 02 Sat by Pulse Oximetry 96 Oxygen Delivery Method Room Air Orders (Tests/Meds): ORDERS Category Date Time Status Ankle XR -Right minimum 3 Views [XR ankle RT min 3V] Exams 01/30/21 17:20 Taken Stat - Radiology Data #1 Image(s): Ankle Image Reviewed: Yes I reviewed the patient's radiology results Preliminary Findings: Normal/NAD Medical Decision Narrative: 45yo F evaluated for ankle pain after a fall. Patient no acute distress on initial evaluation. Patient sent for x-rays. I reviewed the patient's x-rays and find no acute fracture on my wet read. Patient already walks with a cane. Instructed patient to keep her affected limb elevated, work on range of motion. Tylenol/Motrin as needed for aches and pains. Follow-up with PCP regarding possible referral for physical therapy as she has had numerous falls. General Adult HPI - General Chief complaint: Extremity Injury, Lower Stated complaint: AO Fall 4 times in [place] Injured R Ankle Time Seen by Provider: 01/30/21 18:19 Mode of Arrival: Wheelchair Limitations: Physical Limitations Description of Symptoms (Recalled from ER Triage Doc. by RN): patient initially fell in november and injured right foot. patient was seen in [facility] for sprain and referred to Dr. Ramirez. patient appt is Feb [address] ramirez. patient has not been able to bear weight or walk on foot correctly since initial fall in november. Patient has fallen 4 times since then with most recent fall being today. patient described pain as a dull ache with throbbing, but sharp and shooting with movement. patient denies hitting head, or LOC with any fall. - History of Present Illness HPI narrative: 45yo F evaluated for right ankle pain after a fall. Patient reports 4 falls recently. She states she had a right knee replacement over a year ago and has been more apt to fall since that time. Reports completing therapy as directed. Denies any other injury following her fall today. - Related Data Home Medications Medication Instructions Recorded Confirmed Albuterol Sulfate [Ventolin HFA 1 puff IH DAILY 05/23/19 01/08/21 Inhaler] Previous Rx's Medication Instructions Recorded budesonide-formoterol HFA 160 1 puff INHALATION DAILY #10 g 09/14/18 mcg-4.5 mcg/actuation aerosol inhaler famotidine 20 mg tablet 20 mg PO BID #60 tab 05/22/20 ketoconazole 2 % topical cream 1 applic TOPICAL BID #60 g 05/22/20 lisinopril 10 mg tablet 20 mg PO DAILY #90 tab 09/25/20 trazodone 10
[2021-01-30 18:33] VITALS: BP 121/76; PULSE 71; RESP 16; TEMP 36.9; O2SAT 97
== END 2021-01-30 18:34 | disposition home or self-care (01) ==
PROVIDERS: Emergency Provider Family Medicine; PCP Physician Assistant
DX: S93.401A Sprain of unspecified ligament of right ankle, initial encounter (principal); W19.XXXA Unspecified fall, initial encounter; F41.8 Other specified anxiety disorders; M79.7 Fibromyalgia; I10 Essential (primary) hypertension; K21.9 Gastro-esophageal reflux disease without esophagitis; E11.9 Type 2 diabetes mellitus without complications; J44.9 Chronic obstructive pulmonary disease, unspecified; F17.210 Nicotine dependence, cigarettes, uncomplicated; Z91.040 Latex allergy status; Z79.899 Other long term (current) drug therapy
CPT/HCPCS: 73610; 99282

== ENCOUNTER 2021-11-02 21:04 | Emergency (ER) | payer BC, SELFPAY ==
--- NOTE | 2021-11-02 21:02 | XR_ITS ---
PROCEDURE INFORMATION: Exam: XR Right Knee Exam date and time: 11/02/2021 9:05 PM Age: 46 years old Clinical indication: Injury or trauma; Fall; Blunt trauma; Right; Prior surgery; Surgery date: 6+ months; Surgery type: RT knee replacement TECHNIQUE: Imaging protocol: XR Right knee. Views: 1 or 2 views. COMPARISON: CR XR KNEE RT 3V 01/07/2021 4:07 PM FINDINGS: Bones/joints: Mildly comminuted primarily obliquely oriented displaced fracture of the proximal fibula with 4 mm of cortical step-off. Status post total knee arthroplasty with patellar resurfacing. Soft tissues: Small effusion. IMPRESSION: Mildly comminuted primarily obliquely oriented displaced fracture of the proximal fibula with 4 mm of cortical step-off.
--- NOTE | 2021-11-02 21:02 | XR_ITS ---
PROCEDURE INFORMATION: Exam: XR Right Tibia and Fibula Exam date and time: 11/02/2021 9:05 PM Age: 46 years old Clinical indication: Injury or trauma; Fall; Blunt trauma; Lower leg; Right; Prior surgery; Surgery date: 6+ months; Surgery type: Total knee replacement TECHNIQUE: Imaging protocol: XR Right tibia and fibula. Views: 2 views. COMPARISON: CR XR ANKLE RT MIN 3V 01/30/2021 5:34 PM FINDINGS: Bones/joints: Comminuted displaced fracture of the mid to distal tibia with 8 mm of cortical step-off. 6 x 9 mm fragment projecting towards the medial skin surface. Comminuted mildly angulated fracture of the distal fibula. Comminuted mildly displaced fracture of the proximal fibula. Status post total knee arthroplasty. Soft tissues: See above. IMPRESSION: Fractures of the tibia and fibula described above.
[2021-11-02 21:03] VITALS: BP 130/90; PULSE 130; RESP 20; TEMP 36.7; O2SAT 95; BMI 38.0
--- NOTE | 2021-11-02 21:19 | XR_ITS ---
PROCEDURE INFORMATION: Exam: XR Chest Exam date and time: 11/02/2021 9:19 PM Age: 46 years old Clinical indication: Injury or trauma; Fall; Blunt trauma (contusions or hematomas) TECHNIQUE: Imaging protocol: XR of the chest. Views: 1 view. COMPARISON: CR XR CHEST PORTABLE PICC PLAC 08/05/2019 10:12 AM FINDINGS: Lungs: No consolidation. Pleural spaces: No pneumothorax. Heart/Mediastinum: Cardiac silhouette is stable. Bones/joints: No acute abnormality. IMPRESSION: No acute findings.
[2021-11-02 21:23] VITALS: BP 118/91; PULSE 94; O2SAT 92
--- NOTE | 2021-11-02 21:23 | XR_ITS ---
PROCEDURE INFORMATION: Exam: XR Pelvis Exam date and time: 11/02/2021 10:07 PM Age: 46 years old Clinical indication: Injury or trauma; Fall; Blunt trauma (contusions or hematomas); Right; Pelvic region TECHNIQUE: Imaging protocol: XR pelvis. Views: 1 or 2 view. COMPARISON: CR [id number] XR lumbar spine min 4V 10/21/2017 2:12 PM FINDINGS: Bones/joints: Examination is mildly limited by positioning. No definite acute fracture. No dislocation. Soft tissues: Unremarkable. IMPRESSION: No acute findings.
--- NOTE | 2021-11-02 21:56 | [facility]H.EDLOEX ---
ED Disposition Clinical Impression: Open fracture of lower leg Qualifiers: Encounter type: initial encounter Open fracture type: open type I or II Laterality: right Qualified Code(s): S82.91XB - Unspecified fracture of right lower leg, initial encounter for open fracture type I or II Fall Qualifiers: Encounter type: initial encounter Qualified Code(s): W19.XXXA - Unspecified fall, initial encounter Disposition: Xfer Short-Term Hosp Condition on Discharge: Serious Referrals: Ifeoma Pate PA [Primary Care Provider] - - Critical Care Critical Care Time: No Attestation: On 11/02/21, the high probability of a clinically significant, sudden or life threatening deterioration of the following system(s) required my full and direct attention, intervention and personal management. The time I documented below is in addition to time spent performing reported procedures but includes the following listed in this critical care notation. Medical Decision Making - Medical Records Medical records reviewed: Yes: I reviewed the patient's medical records. - Mark Inquiry Pt receiving controlled substance: No Vital Signs: 11/02/21 21:03 11/02/21 21:23 11/02/21 22:17 Temperature 98.0 F Temperature Source Oral Pulse Rate 94 H 121 H Pulse Rate [Apical] 130 H Respiratory Rate 20 Blood Pressure 118/91 H 133/88 Blood Pressure [Right Arm] 130/90 Blood Pressure Mean [Right Arm] 103 Blood Pressure Source [Right Arm] Automatic Cuff Blood Pressure Position [Right Arm] Sitting 02 Sat by Pulse Oximetry 95 92 L 100 Oxygen Delivery Method Room Air Room Air - Lab Data Lab results reviewed: Yes: I reviewed the patient's lab results. Lab Results 11/02/21 21:40: Urine Color Yellow, Urine Appearance Clear, Urine pH 6.0, Ur Specific [place] 1.015, Urine Protein Negative, Urine Glucose (UA) Negative, Urine Ketones Negative, Urine Blood Negative, Urine Nitrate Negative, Urine Bilirubin Negative, Urine Urobilinogen 0.2, Ur Leukocyte Esterase Negative, Ur Squamous Epith Cells 5-10 11/02/21 21:45: WBC 11.4 H, RBC 4.06 L, Hgb 11.6 L, Hct 34.5 L, MCV 84.8, MCH 28.5, MCHC 33.6, RDW 16.9, Plt Count 377, MPV 9.4, Neut % (Auto) 61.9, Lymph % (Auto) 29.8, Door % (Auto) 4.3, Eos % (Auto) 2.3, Baso % (Auto) 1.7, Neut # (Auto) 7.1, Lymph # (Auto) 3.4, Door # (Auto) 0.5, Eos # (Auto) 0.3, Baso # (Auto) 0.2 11/02/21 21:45: Sodium 134 L, Potassium 4.1, Chloride 104, Carbon Dioxide 18 L, Anion Gap 16.1 H, BUN 17, Creatinine 0.90, Estimated Creat Clear 124, Estimated GFR 67, Est GFR ( Amer) 82, Glucose 111 H, Calcium 11.1 H, Total Bilirubin 0.6, AST 33, ALT 28, Alkaline Phosphatase 107, C-Reactive Protein 69.5 H, Total Protein 7.3, Albumin 4.2, Globulin 3.1, Albumin/Globulin Ratio 1.4 11/02/21 21:45: ESR 88 H 11/02/21 21:45: Total Creatine Kinase 587 H*, Procalcitonin 0.109 Result diagrams: 11/02/21 21:45 11/02/21 21:45 Orders (Tests/Meds): ED MEDICATIONS Generic Name Dose Route Start Last Admin Trade Name Freq PRN Reason Stop Dose Admin Lactated Ringer's 1,000 mls @ 999 mls/hr 11/02/21 21:15 Lactated Ringer's 1000 Ml Bag IV 11/02/21 22:15 .Q1H1M KATIE Discontinued Medications Generic Name Dose Route Start Last Admin Trade Name Freq PRN Reason Stop Dose Admin Cefazolin Sodium 2 gm 11/02/21 23:03 11/02/21 23:09 Cefazolin 1gm Vial IM 11/02/21 23:04 2 gm ONCE ONE Administration Ceftriaxone Sodium 2 gm 11/02/21 22:58 11/02/21 23:02 Ceftriaxone 1gm Vial IM 11/02/21 22:59 Not Given ONCE ONE Hydromorphone HCl 1 mg 11/02/21 23:03 11/02/21 23:10 Hydromorphone 2mg/Ml Syringe IM 11/02/21 23:04 1 mg ONCE ONE Administration Ketorolac Tromethamine 30 mg 11/02/21 21:14 11/02/21 22:47 Ketorolac 30mg/Ml Vial IV 11/02/21 21:15 Not Given ONCE ONE Lidocaine HCl 0 ml 11/02/21 22:58 11/02/21 23:03 Lidocaine 1% 5ml Pf Vial IM 11/02/21 22:59 Not Given ONCE ONE [place]
--- NOTE | 2021-11-02 22:03 | PC.NURSE ---
WOUND CLEANED AND WET TO DRY DRESSING APPLIED. BRACE LEFT OPEN PER PATIENT REQUEST. FAMILY AT BEDSIDE. M.
[2021-11-02 22:07] LABS: Microscopic, Urine URINE MICROSCOPIC (MICROSCOPIC)
[2021-11-02 22:11] LABS: Basophils # 0.2 K/mm3 (0-0.2); Basophils % 1.7 % (0.1-2.0); Eosinophils # 0.3 K/mm3 (0.0-0.4); Eosinophils % 2.3 % (0.1-12.0); Hematocrit 34.5 % (37.0-47.0); Hemoglobin 11.6 g/dL (12.2-16.2); Lymphocytes # 3.4 K/mm3 (0.7-4.5); Lymphocytes % 29.8 % (10-50); Mean Corpuscular HGB Conc 33.6 g/dL (31.8-35.4); Mean Corpuscular Hemoglobin 28.5 pg (27.0-31.2); Mean Corpuscular Volume 84.8 fl (81-99); Mean Platelet Volume 9.4 fl (7.4-10.4); Monocytes # 0.5 K/mm3 (0.1-1.0); Monocytes % 4.3 % (1.7-9.3); Neutrophils # 7.1 K/mm3 (1.8-7.8); Neutrophils % 61.9 % (37.0-80.0); Platelet Count 377 K/mm3 (142-424); Red Blood Count 4.06 M/mm3 (4.20-5.40); Red Cell Distribution Width 16.9 % (11.5-17.5); White Blood Count 11.4 K/mm3 (4.8-10.8)
[2021-11-02 22:17] VITALS: BP 133/88; PULSE 121; O2SAT 100
[2021-11-02 22:23] LABS: Creatine Kinase 587 U/L (30-135)
[2021-11-02 22:24] LABS: Alanine Aminotransferase 28 U/L (12-78); Albumin Level 4.2 g/dl (3.5-5.0); Albumin/Globulin Ratio 1.4 (1.1-1.8); Alkaline Phosphatase 107 U/L (38-126); Anion Gap 16.1 mEq/L (5-15); Aspartate Amino Transferase 33 U/L (14-36); Bilirubin,Total 0.6 mg/dl (0.2-1.3); Blood Urea Nitrogen 17 mg/dl (7-17); Calcium 11.1 mg/dl (8.4-10.2); Carbon Dioxide 18 mmol/L (22.0-30.0); Chloride 104 mmol/L (98-107); Creatinine Clearance Estimated 124 mL/min (50-200); Estimated Glomerular Filt Rate 67 ml/min (>60); GFR (African American) 82 ML/MIN (>60); Globulin 3.1 g/dL (1.3-3.2); Glucose 111 mg/dl (74-100); Potassium 4.1 mmoL/L (3.5-5.1); Sodium 134 mmol/L (136-145); Total Protein,Serum 7.3 g/dl (6.3-8.2)
[2021-11-02 22:27] LABS: Appearance,Urine CLEAR (Clear); Bilirubin,Urine Negative (Negative); Blood, Urine Negative (Negative); Color,Urine YELLOW (Yellow); Glucose,Urine (UA) Negative (Negative); Ketones,Urine Negative (Negative); Leukocyte Esterase,Urine Negative (Negative); Nitrate,Urine Negative (Negative); Protein,Urine Negative (Negative); Specific Gravity, Urine 1.015 (1.005-1.030); Urobilinogen,Urine 0.2 EU/dl (0.2)
[2021-11-02 22:29] LABS: C-Reactive Protein 69.5 mg/L (0-4)
--- NOTE | 2021-11-02 22:37 | PC.NURSE ---
phone call to transfer center, information given to Lauren
[2021-11-02 22:42] LABS: Erythrocyte Sedimentation Rate 88 mm/hr (0-20)
[2021-11-02 22:43] LABS: Procalcitonin 0.109 ng/mL (0.0-2.0)
--- NOTE | 2021-11-02 22:46 | PC.NURSE ---
Dr. Tucker on phone with Dr. Swain at re: transfer
[2021-11-02 23:29] VITALS: BP 130/82; PULSE 110; RESP 20; TEMP 36.7; O2SAT 94
[2021-11-02 23:40] LABS: Coronavirus 19, PCR Not Detected (NotDetected); Influenza A, PCR Not Detected (NotDetected); Influenza B, PCR Not Detected (NotDetected)
== END 2021-11-03 00:12 | disposition short-term general hospital (02) ==
PROVIDERS: Emergency Provider Emergency Medicine; PCP Physician Assistant
DX: S82.301A Unspecified fracture of lower end of right tibia, initial encounter for closed fracture (principal); S82.831A Other fracture of upper and lower end of right fibula, initial encounter for closed fracture; W06.XXXA Fall from bed, initial encounter; Y92.019 Unspecified place in single-family (private) house as the place of occurrence of the external cause; J44.9 Chronic obstructive pulmonary disease, unspecified; E11.9 Type 2 diabetes mellitus without complications; F41.8 Other specified anxiety disorders; K21.9 Gastro-esophageal reflux disease without esophagitis; I10 Essential (primary) hypertension; F17.210 Nicotine dependence, cigarettes, uncomplicated
CPT/HCPCS: 51702; 71045; 72170; 73560; 73590; 80053; 81001; 82550; 84145; 85025; 85651; 86140; 96365; 96372; 96375; 99284; C9803; J2405; U0003; U0005

== ENCOUNTER → 2022-10-14 16:57 | Outpatient (CLI) | payer BC, SELFPAY ==
--- NOTE | 2022-10-14 17:03 | XR_ITS ---
PROCEDURE INFORMATION: Exam: XR Left Finger(s) Exam date and time: 10/14/2022 5:05 PM Age: 47 years old Clinical indication: Pain; Finger(s); Left; Additional info: Left 4th digit pain TECHNIQUE: Imaging protocol: Radiologic exam of the left fingers. Views: Minimum 2 views. COMPARISON: CR (WRIST PA, WRIST, WRIST PA) 01/16/2019 2:16 PM FINDINGS: Bones/joints: There is an acute, diagonally-oriented fracture along the base of the 4th digit's proximal phalanx. Soft tissues: Mild soft tissue swelling along the proximal aspect of the 4th finger. IMPRESSION: There is an acute, diagonally-oriented fracture along the base of the 4th digit's proximal phalanx.
[2022-10-14 19:14] LABS: Amphetamine/Metha Screen,Urine Negative ng/ml (<1000); Barbiturates Screen,Urine Negative ng/ml (<200)
[2022-10-14 19:15] LABS: Benzodiazepines Screen,Urine Negative ng/ml (<200); Cannabinoid Screen,Urine Positive ng/ml (<50)
[2022-10-14 19:16] LABS: Cocaine Screen,Urine Negative ng/ml (<300)
[2022-10-14 19:17] LABS: Methadone Screen,Urine Negative ng/ml (<300); Phencyclidine Screen,Urine Negative ng/ml (<25)
[2022-10-14 19:19] LABS: Opiate Screen,Urine Positive ng/ml (<300)
== END ==
LOC: RAD 16:57 → LAB.DROPOF 20:13
PROVIDERS: PCP Physician Assistant; Visit Provider Physician Assistant
DX: M79.645 Pain in left finger(s) (principal); G89.29 Other chronic pain
CPT/HCPCS: 73140; 80305

== ENCOUNTER → 2022-12-08 23:24 | Outpatient (CLI) | payer BC, SELFPAY ==
[2022-12-08 21:13] LABS: Amphetamine/Metha Screen,Urine Negative ng/ml (<1000); Barbiturates Screen,Urine Negative ng/ml (<200)
[2022-12-08 21:14] LABS: Benzodiazepines Screen,Urine Negative ng/ml (<200); Cannabinoid Screen,Urine Negative ng/ml (<50)
[2022-12-08 21:15] LABS: Cocaine Screen,Urine Negative ng/ml (<300)
[2022-12-08 21:16] LABS: Methadone Screen,Urine Negative ng/ml (<300); Opiate Screen,Urine Positive ng/ml (<300)
[2022-12-08 21:18] LABS: Phencyclidine Screen,Urine Negative ng/ml (<25)
== END ==
PROVIDERS: PCP Emergency Medicine; Visit Provider Emergency Medicine
DX: Z79.899 Other long term (current) drug therapy (principal)
CPT/HCPCS: 80305

== ENCOUNTER → 2023-03-29 15:32 | Outpatient (CLI) | payer BC, SELFPAY ==
[2023-03-29 17:34] LABS: Basophils % 0.1 % (0.1-2.0); Eosinophils # 0.3 K/mm3 (0.0-0.4); Eosinophils % 3.3 % (0.1-12.0); Hematocrit 36.9 % (37.0-47.0); Hemoglobin 11.4 g/dL (12.2-16.2); Lymphocytes # 2.8 K/mm3 (0.7-4.5); Lymphocytes % 37.6 % (10-50); Mean Corpuscular HGB Conc 30.9 g/dL (31.8-35.4); Mean Corpuscular Hemoglobin 26.3 pg (27.0-31.2); Mean Corpuscular Volume 84.8 fl (81-99); Mean Platelet Volume 8.5 fl (7.4-10.4); Monocytes # 0.3 K/mm3 (0.1-1.0); Neutrophils # 4.1 K/mm3 (1.8-7.8); Platelet Count 357 K/mm3 (142-424); Red Blood Count 4.35 M/mm3 (4.20-5.40); Red Cell Distribution Width 19.5 % (11.5-17.5); White Blood Count 7.4 K/mm3 (4.8-10.8)
[2023-03-29 18:17] LABS: 25-OH Vitamin D, Total 84.7 ng/mL (30-100)
[2023-03-29 18:29] LABS: Alanine Aminotransferase 16 U/L (12-78); Albumin Level 4.1 g/dl (3.5-5.0); Albumin/Globulin Ratio 1.3 (1.1-1.8); Alkaline Phosphatase 105 U/L (38-126); Anion Gap 12.5 mEq/L (5-15); Aspartate Amino Transferase 23 U/L (14-36); Blood Urea Nitrogen 16 mg/dl (7-17); Carbon Dioxide 25 mmol/L (22.0-30.0); Chloride 107 mmol/L (98-107); Chol/HDL Ratio 2.6 (1-3.5); Cholesterol 209 mg/dl (140-200); Estimated Glomerular Filt Rate 67 ml/min (>60); GFR (African American) 81 ML/MIN (>60); Globulin 3.2 g/dL (1.3-3.2); Glucose 87 mg/dl (74-100); HDL Cholesterol 80 mg/dl (40-60); Potassium 4.5 mmoL/L (3.5-5.1); Sodium 140 mmol/L (136-145); Total Protein,Serum 7.3 g/dl (6.3-8.2); Triglycerides 123 mg/dl (30-150); VLDL Cholesterol 25 mg/dL (0-40)
[2023-03-29 18:34] LABS: Bilirubin,Total 0.1 mg/dl (0.2-1.3)
[2023-03-29 18:40] LABS: Direct LDL Cholesterol 102.09 mg/dL (100-129)
[2023-03-30 10:31] LABS: Iron 39 ug/dL (37-170)
[2023-03-30 10:41] LABS: Total Iron Binding Capacity 397 ug/dL (265-497)
[2023-03-30 11:09] LABS: Ferritin 7.96 ng/ml (6.24-137)
== END ==
PROVIDERS: PCP Physician Assistant; Visit Provider Physician Assistant
DX: I10 Essential (primary) hypertension (principal); R89.9 Unspecified abnormal finding in specimens from other organs, systems and tissues; G89.29 Other chronic pain; E66.9 Obesity, unspecified; Z68.37 Body mass index [BMI] 37.0-37.9, adult; Z79.899 Other long term (current) drug therapy; D50.8 Other iron deficiency anemias
CPT/HCPCS: 36415; 80053; 80061; 82306; 82728; 83540; 83550; 84443; 85025

== ENCOUNTER 2023-07-20 19:15 | Outpatient (CLI) | payer BC, SELFPAY ==
[2023-07-20 21:58] LABS: Amphetamine/Metha Screen,Urine Negative ng/ml (<1000)
[2023-07-20 21:59] LABS: Barbiturates Screen,Urine Negative ng/ml (<200)
[2023-07-20 22:01] LABS: Benzodiazepines Screen,Urine Negative ng/ml (<200); Cannabinoid Screen,Urine Negative ng/ml (<50)
[2023-07-20 22:02] LABS: Cocaine Screen,Urine Negative ng/ml (<300)
[2023-07-20 22:03] LABS: Methadone Screen,Urine Negative ng/ml (<300)
[2023-07-20 22:04] LABS: Opiate Screen,Urine Negative ng/ml (<300)
[2023-07-20 22:05] LABS: Phencyclidine Screen,Urine Negative ng/ml (<25)
[2023-07-27 02:08] LABS: Alprazolam Negative (Cutoff=100); Benzodiazepines Negative ng/mL (Cutoff=100); Clonazepam Negative (Cutoff=100); Flurazepam Negative (Cutoff=100); Lorazepam Negative (Cutoff=100); Midazolam Negative (Cutoff=100); Opiates Negative (Cutoff=100); Oxycodone (GC/MS) 1358 ng/mL (Cutoff=100); Temazepam Negative (Cutoff=100); Triazolam Negative (Cutoff=100)
== END 2023-07-20 23:59 ==
LOC: LAB.DROPOF 19:16
PROVIDERS: PCP Physician Assistant; Visit Provider Physician Assistant
DX: G89.29 Other chronic pain (principal)
CPT/HCPCS: 80307; 80346; 80361; 80365; G0480

== ENCOUNTER 2023-09-28 13:23 | Outpatient (CLI) | payer BC, SELFPAY ==
--- NOTE | 2023-09-28 13:28 | XR_ITS ---
FINAL REPORT CLINICAL HISTORY: Left ring finger fx COMPARISON: 10/14/2022 FINDINGS: LEFT HAND Three views demonstrate no acute fracture or dislocation. The visualized joint spaces are normally aligned. There is a sideplate and screws securing the distal radial metaphysis. The soft tissues are unremarkable. IMPRESSION: No acute process. Reviewed, Interpreted and Dictated by Gigi Sandoval MD Transcribed by Tamanna Davidson Authenticated and [facility]
== END 2023-09-28 23:59 ==
LOC: RAD 13:25
PROVIDERS: PCP Physician Assistant; Visit Provider Orthopaedic Surgery
DX: M65.342 Trigger finger, left ring finger (principal)
CPT/HCPCS: 73130

== ENCOUNTER 2025-05-26 08:35 | Emergency (ER) | payer OTHER, SELFPAY ==
[2025-05-26 08:41] VITALS: BP 182/112; PULSE 93; RESP 16; O2SAT 99; BMI 42.0
--- OUTSIDE RECORDS SUMMARY | 2025-05-26 08:47 | XMS_ITS | Data Portability ---
Author Organization [facility] [place] [facility] Address [address] [place] [address] Assessment No assessment recorded. Plan of Treatment Reminders Order Date Submit Date Provider Last Modified By Organization Details Last Modified Time Details Appointments FOLLOW UP 30 2024 04:00P Ruddy Pate PA-C Not available Not available Not available Lab unlisted lab - toxassure flex 19, [id number] 2024 025 LYERLY [facility] ([place]), [address] [place], [address], 03/20/2025 18:07:45 drug screen, urine [address], [address] [place] [address], [place], [address], 03/13/2025 16:33:51 unlisted lab - toxassure flex 19, [id number] 2024 025 LYERLY [facility]), [address] [place], [address], 12/16/2024 17:07:25 Referral pain managemen t referral [address] [facility], [address], [address], [place], [address], 04/26/2025 08:22:50 psychiatr ist referral 2024 025 [email or web address] [facility], [address], [place], [address], 05/22/2025 13:20:09 Procedures None recorded. Surgeries None recorded. Imaging None recorded. Medication Orders Lyrica 75 mg capsule 2024 025 [facility], [address] [place] [address] [place], [id number], 05/12/2025 13:39:37 Medrol (Shalom) 4 mg tablets in a dose pack 2024 025 [facility], [address] [place] [address] [place] [place], [id number], 03/26/2025 05:01:16 cyclobenz aprine 10 mg tablet 2024 025 [facility], [address] [place] [address] [place], [id number], 03/13/2025 17:33:10 Cymbalta 60 mg capsule,d elayed release 2024 025 [facility], [address] [place] [address] [place], [id number], 02/12/2025 16:56:25 amitripty line 25 mg tablet 2023 024 [facility], [address] [place] [address] [place], [id number], 09/28/2024 17:04:23 loratadin e 10 mg tablet 2023 024 [facility], [address] [place] [address] [place], [id number], 05/12/2025 13:39:41 trazodone 100 mg tablet 2023 024 [facility], [address] [place] [address] [place], [id number], 09/28/2024 17:04:31 famotidin e 20 mg tablet 2023 024 [facility], [address] [place] [address] [place], [id number], 05/12/2025 13:39:38 omeprazol e 40 mg capsule,d elayed release 2023 024 [facility], [address] [place] [address] [place], [id number], 09/01/2024 09:42:06 ondansetr on 8 mg disintegr ating tablet 2023 024 [facility], [address] [place] [address] [place], [id number], 09/01/2024 09:42:12 atorvasta tin 10 mg tablet 2023 024 [facility], [address] [place] [address] [place], [id number], 09/01/2024 09:42:12 Symbicort 160 mcg-4.5 mcg/actua tion HFA aerosol inhaler 2023 024 [facility], [address] [place] [address] [place], [id number], 09/01/2024 09:42:08 cholecalc iferol (vitamin D3) 125 mcg (5,000 unit) capsule 2023 024 [facility], [address] [place] [address] [place], [id number], 09/01/2024 09:42:02 lisinopri l 10 mg tablet 2023 024 [facility], [address] [place] [address] [place], [id number], 09/01/2024 09:42:00 metoprolo l succinate ER 50 mg tablet,ex tended release 24 hr 2023 024 [facility], [address] [place] [address] [place], [id number], 09/28/2024 17:04:24 quetiapin e 300 mg tablet 2023 024 [facility], [address] [place] [address] [place], [id number], 11/24/2024 17:35:43 Patient TargetsNo targets recorded. Patient Instructions Encounter Date Encounter Id Patient Instructions Last Modified By Organization Details Last Modified Time 06/22/2024 [id number] influenza (flu) vaccine: care instructions [email or web address] Not available 06/22/2024 17:22:00 allergies: care instructions [email or web address] Not available 06/22/2024 17:31:45 insomnia: care instructions [email or web address] Not available 06/22/2024 17:31:45 gastroesophageal reflux disease (GERD): care instructions [email or web address] Not available 06/22/2024 17:31:45 high cholesterol : care instructions Not available 06/22/2024 17:31:45 chronic obstruct wilma pulmonary disease (COPD): care instructions Not available 06/22/2024 17:31:46 learning about c opd and how to prevent lung infections [email or web address] Not available 06/22/2024 17:31:45 body mass index: care instructions [email or web address] Not available 06/23/2024 15:28:52 learning about healthy weight Not available 06/23/2024 15:28:52 high blood press ure: care instructions [email or web address] Not available 06/22/2024 17:31:45 learning about h igh blood pressure [email or web address] Not available 06/22/2024 17:31:45 learning about m ood disorders [email or web address] Not available 06/22/2024 17:31:45 12/12/2024 [id number] allergies: care instructions [email or web address] Not available 12/15/2024 13:30:20 insomnia: care instructions [email or web address] Not available 12/15/2024 13:30:20 gastroesophageal reflux disease (GERD): care instructions [email or web address] Not available 12/15/2024 13:30:20 chronic obstruct wilma pulmonary disease (COPD): care instructions Not available 12/15/2024 13:30:20 learning about c opd and how to prevent lung infections [email or web address] Not available 12/15/2024 13:30:20 03/13/2025 [id number] chronic pain: ca re instructions [email or web address] Not available 03/13/2025 16:06:55 Reason for Referral Psychiatrist Referral for An xiety Referring Physician: Ifeoma Pate [facility], Encounter Date: 03/13/2025 Pain Management Referral for Chronic pain Referring Physician: Ifeoma Pate [facility], Encounter Date: 03/13/2025 Results Created Date Observation Date Name Description Value Unit Range Abnormal Flag Note LastModifiedBy Organization Detail LastModifiedTime 06/22/20 24 06/30/2024 TOXAS SURE FLEX 19, UR summary report FINAL ===== ===== ===== ===== ===== ===== ===== ===== ===== ===== ===== ===== ===== === Canna binoi ds, MS, Ur RFX ToxAs sure Flex 19, Ur ===== ===== ===== ===== ===== ===== ===== ===== ===== ===== ===== ===== ===== === Test Resul t Flag Units Drug Prese nt Carbo xy-TH C 80 ng/mg creat Carbo xy-TH C is a metab olite of tetra hydro canna binol (THC) . Sourc e of THC is most commo nly herba l marij uana or marij uana- based produ cts, but THC is also prese nt in a sched uled presc ripti on medic ation . Trace amoun ts of THC can be prese nt in hemp and canna bidio l (CBD) produ cts. This test is not inten ded to disti nguis h betwe en delta -9-te trahy droca nnabi nol, the predo minan t form of THC in most herba l or marij uana- based produ cts, and delta -8-te trahy droca nnabi nol. Prega balin PRESE NT ===== ===== ===== ===== ===== ===== ===== ===== ===== ===== ===== ===== ===== === Test Resul t Flag Units Ref Range Creat inine 71 mg/dL >=20 ===== ===== ===== ===== ===== ===== ===== ===== ===== ===== ===== ===== ===== === Decla red Medic ation s: Medic ation list was not provi ded. ===== ===== ===== ===== ===== ===== ===== ===== ===== ===== ===== ===== ===== === For clini roxanna consu ltati on, pleas e call [phone]. ===== ===== ===== ===== ===== ===== ===== ===== ===== ===== ===== ===== ===== === Not Available [facility] ([facility]) [address] [facility], [place], [address], 06/30/2024 11:06:54 06/22/20 24 06/30/2024 TOXAS SURE FLEX 19, UR pdf . Not Available [facility] ([facility]) [address] [place], [address], 06/30/2024 11:06:54 06/22/20 24 06/30/2024 TOXAS SURE FLEX 19, UR creatinine 71 mg/dL REFER ENCE RANGE : Ref Range >=20 Not Available [facility] ([facility]) [address] [place], [address], 06/30/2024 11:06:54 06/22/20 24 06/30/2024 TOXAS SURE FLEX 19, UR amphetamines ia Negati ve NG/mL cutoff :300 Not Available [facility] ([facility]) [address] [place], [address], 06/30/2024 11:06:54 06/22/20 24 06/30/2024 TOXAS SURE FLEX 19, UR benzodiazepi maribell Negati ve Not Available [facility] ([facility]) [address] [place], [address], 06/30/2024 11:06:54 06/22/20 24 06/30/2024 TOXAS SURE FLEX 19, UR diazepam Not Detect ed NG/mg _crea t Not Available [facility] ([facility]) [address] [place], [address], 06/30/2024 11:06:54 06/22/20 24 06/30/2024 TOXAS SURE FLEX 19, UR desmethyldia zepam Not Detect ed NG/mg _crea t Not Available [facility] ([facility]) [address] [place] [address], [address], 06/30/2024 11:06:54 06/22/20 24 06/30/2024 TOXAS SURE FLEX 19, UR oxazepam Not Detect ed NG/mg _crea t Not Available [facility] ([facility]) [address] [place], [address], 06/30/2024 11:06:54 06/22/20 24 06/30/2024 TOXAS SURE FLEX 19, UR temazepam Not Detect ed NG/mg _crea t Expec dayana metab olism of benzo diaze pine class drugs : Paren t Drug Detec dayana Metab olite s ----- ----- - ----- ----- ----- ----- Diaze jey: Desme thyld iazep am, Temaz epam, Oxaze jey Chlor diaze poxid e: Desme thyld iazep am, Oxaze jey Clora zepat e: Desme thyld iazep am, Oxaze jey Halaz epam: Desme thyld iazep am, Oxaze jey Temaz epam: Oxaze jey Oxaze jey: None Not Available [facility] ([facility]) [address] [facility], [place], [address], 06/30/2024 11:06:54 06/22/20 24 06/30/2024 TOXAS SURE FLEX 19, UR alprazolam Not Detect ed NG/mg _crea t Not Available [facility] ([facility]) [address] [place], [address], 06/30/2024 11:06:54 06/22/20 24 06/30/2024 TOXAS SURE FLEX 19, UR alpha-hydrox yalprazolam Not Detect ed NG/mg _crea t Not Available [facility] ([facility]) [address] [place], [address], 06/30/2024 11:06:54 06/22/20 24 06/30/2024 TOXAS SURE FLEX 19, UR desalkylflur azepam Not Detect ed NG/mg _crea t Not Available [facility] ([facility]) [address] [place], [address], 06/30/2024 11:06:54 06/22/20 24 06/30/2024 TOXAS SURE FLEX 19, UR lorazepam Not Detect ed NG/mg _crea t Not Available [facility] ([facility]) [address] [facility], [place], [address], 06/30/2024 11:06:54 06/22/20 24 06/30/2024 TOXAS SURE FLEX 19, UR alpha-hydrox ytriazolam Not Detect ed NG/mg _crea t Not Available [facility] ([facility]) [address] [facility], [place], [address], 06/30/2024 11:06:54 06/22/20 24 06/30/2024 TOXAS SURE FLEX 19, UR clonazepam Not Detect ed NG/mg _crea t Not Available [facility] ([facility]) [address] [facility], [place], [address], 06/30/2024 11:06:54 06/22/20 24 06/30/2024 TOXAS SURE FLEX 19, UR 7-aminoclona zepam Not Detect ed NG/mg _crea t Not Available [facility] ([facility]) [address] [place], [address], 06/30/2024 11:06:54 06/22/20 24 06/30/2024 TOXAS SURE FLEX 19, UR midazolam Not Detect ed NG/mg _crea t Not Available [facility] ([facility]) [address] [place], [address], 06/30/2024 11:06:54 06/22/20 24 06/30/2024 TOXAS SURE FLEX 19, UR alpha-hydrox ymidazolam Not Detect ed NG/mg _crea t Not Available [facility] ([facility]) [address] [place], [address], 06/30/2024 11:06:54 06/22/20 24 06/30/2024 TOXAS SURE FLEX 19, UR flunitrazepa m Not Detect ed NG/mg _crea t Not Available [facility] ([facility]) [address] [place], [address], 06/30/2024 11:06:54 06/22/20 24 06/30/2024 TOXAS SURE FLEX 19, UR desmethylflu nitrazepam Not Detect ed NG/mg _crea t Not Available [facility] ([facility]) [address] [place], [address], 06/30/2024 11:06:54 06/22/20 24 06/30/2024 TOXAS SURE FLEX 19, UR cocaine metabolite ia Negati ve NG/mL cutoff :150 Not Available [facility] ([facility]) [address] [place], [address], 06/30/2024 11:06:54 06/22/20 24 06/30/2024 TOXAS SURE FLEX 19, UR ethanol biomarkers ia Negati ve NG/mL cutoff :500 Not Available [facility] ([facility]) [address] [place], [address], 06/30/2024 11:06:54 06/22/20 24 06/30/2024 TOXAS SURE FLEX 19, UR cannabinoids ia COMMEN T NG/mL cutoff :20 Furth er testi ng indic ated Not Available [facility] ([facility]) [address] [place], [address], 06/30/2024 11:06:54 06/22/20 24 06/30/2024 TOXAS SURE FLEX 19, UR 6-acetylmorp samantha ia Negati ve NG/mL cutoff :10 Not Available [facility] ([facility]) [address] [place] [address], [address], 06/30/2024 11:06:54 06/22/20 24 06/30/2024 TOXAS SURE FLEX 19, UR opiate class ia Negati ve NG/mL cutoff :100 Not Available [facility] ([facility]) [address] [place] [address], [address], 06/30/2024 11:06:54 06/22/20 24 06/30/2024 TOXAS SURE FLEX 19, UR oxycodone class ia Negati ve NG/mL cutoff :100 Not Available [facility] ([facility]) [address] [place] [address], [address], 06/30/2024 11:06:54 06/22/20 24 06/30/2024 TOXAS SURE FLEX 19, UR methadone ia Negati ve NG/mL cutoff :100 Not Available [facility] ([facility]) [address] [place] [address], [address], 06/30/2024 11:06:54 06/22/20 24 06/30/2024 TOXAS SURE FLEX 19, UR methadone mtb ia Negati ve NG/mL cutoff :100 Not Available [facility] ([facility]) [address] [place] [address], [address], 06/30/2024 11:06:54 06/22/20 24 06/30/2024 TOXAS SURE FLEX 19, UR buprenorphin e ia Negati ve NG/mL cutoff :5.0 Not Available [facility] ([facility]) [address] [place], [address], 06/30/2024 11:06:54 06/22/20 24 06/30/2024 TOXAS SURE FLEX 19, UR fentanyl ia Negati ve NG/mL cutoff :2.0 Not Available [facility] ([facility]) [address] [place] [address], [address], 06/30/2024 11:06:54 06/22/20 24 06/30/2024 TOXAS SURE FLEX 19, UR tapentadol ia Negati ve NG/mL cutoff :200 Not Available [facility] ([facility]) [address] [place], [address], 06/30/2024 11:06:54 06/22/20 24 06/30/2024 TOXAS SURE FLEX 19, UR propoxyphene ia Negati ve NG/mL cutoff :300 Not Available [facility] ([facility]) [address] [place], [address], 06/30/2024 11:06:54 06/22/20 24 06/30/2024 TOXAS SURE FLEX 19, UR tramadol ia Negati ve NG/mL cutoff :200 Not Available [facility] ([facility]) [address] [place], [address], 06/30/2024 11:06:54 06/22/20 24 06/30/2024 TOXAS SURE FLEX 19, UR methylphenid ate ia Negati ve NG/mL cutoff :100 Not Available [facility] ([facility]) [address] [place] [address], [address], 06/30/2024 11:06:54 06/22/20 24 06/30/2024 TOXAS SURE FLEX 19, UR barbiturates ia Negati ve NG/mL cutoff :200 Not Available [facility] ([facility]) [address] [place] [address], [address], 06/30/2024 11:06:54 06/22/20 24 06/30/2024 TOXAS SURE FLEX 19, UR phencyclidin e ia Negati ve NG/mL cutoff :25 Not Available [facility] ([facility]) [address] [place], [address], 06/30/2024 11:06:54 06/22/20 24 06/30/2024 TOXAS SURE FLEX 19, UR gabapentin ia Negati ve ug/mL cutoff :1.0 Not Available [facility] ([facility]) [address] [place] [address], [address], 06/30/2024 11:06:54 06/22/20 24 06/30/2024 TOXAS SURE FLEX 19, UR anticonvulsa nts +POSIT WILMA+ Not Available [facility] ([facility]) [address] [place], [address], 06/30/2024 11:06:54 06/22/20 24 06/30/2024 TOXAS SURE FLEX 19, UR pregabalin PRESEN T Not Available [facility] ([facility]) [address] [place], [address], 06/30/2024 11:06:54 06/22/20 24 06/30/2024 TOXAS SURE FLEX 19, UR carisoprodol ia Negati ve NG/mL cutoff :100 Not Available [facility] ([facility]) [address] [place], [address], 06/30/2024 11:06:54 06/22/20 24 06/30/2024 CANNA BINOI DS, MS, UR RFX cannabinoids +POSIT WILMA+ Not Available [facility] ([facility]) [address] [place], [address], 06/30/2024 11:06:55 06/22/20 24 06/30/2024 CANNA ROSANNAOI DS, MS, UR RFX carboxy-THC 80 NG/mg _crea t This test is not inten ded to adami elizabeth manzo en the metab olite s of delta -9-te trahy droca nnabi nol, the predo minan t form of THC in most herba l or marij uana- based produ cts, and delta -8-te trahy droca nnabi nol, a psych oacti ve compo und gener ally synth esize d from other canna binoi ds. Not Available [facility] ([facility]) [address] [place] [address], [address], 06/30/2024 11:06:55 12/13/19 25 12/16/2024 TOXAS SURE FLEX 19, UR summary report FINAL ===== ===== ===== ===== ===== ===== ===== ===== ===== ===== ===== ===== ===== === Amphe tamin es, MS, Ur RFX Canna binoi ds, MS, Ur RFX ToxAs sure Flex 19, Ur ===== ===== ===== ===== ===== ===== ===== ===== ===== ===== ===== ===== ===== === Test Resul t Flag Units Drug Prese nt Carbo xy-TH C 28 ng/mg creat Carbo xy-TH C is a metab olite of tetra hydro canna binol (THC) . Sourc e of THC is most commo nly herba l marij uana or marij uana- based produ cts, but THC is also prese nt in a sched uled presc ripti on medic ation . Trace amoun ts of THC can be prese nt in hemp and canna bidio l (CBD) produ cts. This test is not inten ded to disti nguis h betwe en delta -9-te trahy droca nnabi nol, the predo minan t form of THC in most herba l or marij uana- based produ cts, and delta -8-te trahy droca nnabi nol. ===== ===== ===== ===== ===== ===== ===== ===== ===== ===== ===== ===== ===== === Test Resul t Flag Units Ref Range Creat inine 108 mg/dL >=20 ===== ===== ===== ===== ===== ===== ===== ===== ===== ===== ===== ===== ===== === Decla red Medic ation s: Medic ation list was not provi ded. ===== ===== ===== ===== ===== ===== ===== ===== ===== ===== ===== ===== ===== === For clini roxanna consu ltati on, pleas e call . ===== ===== ===== ===== ===== ===== ===== ===== ===== ===== ===== ===== ===== === Not Available [facility] ([facility]) [address] [place], [address], 12/16/2024 17:07:25 12/13/1912/16/2024 TOXAS SURE FLEX 19, UR pdf . Not Available [facility] ([facility]) [address] [place], [address], 12/16/2024 17:07:25 12/13/1912/16/2024 TOXAS SURE FLEX 19, UR creatinine 108 mg/dL >=20 REFER ENCE RANGE : Ref Range >=20 Not Available [facility] ([facility]) [address] [place], [address], 12/16/2024 17:07:25 12/13/1912/16/2024 TOXAS SURE FLEX 19, UR amphetamines ia COMMEN T NG/mL cutoff :300 Furth er testi ng indic ated Not Available [facility] ([facility]) [address] [place], [address], 12/16/2024 17:07:25 12/13/19 25 12/16/2024 TOXAS SURE FLEX 19, UR benzodiazepi maribell Negati ve Not Available [facility] ([facility]) [address] [facility], [place], [address], 12/16/2024 17:07:25 12/13/19 25 12/16/2024 TOXAS SURE FLEX 19, UR diazepam Not Detect ed NG/mg _crea t Not Available [facility] ([facility]) [address] [facility], [place], [address], 12/16/2024 17:07:25 12/13/19 25 12/16/2024 TOXAS SURE FLEX 19, UR desmethyldia zepam Not Detect ed NG/mg _crea t Not Available [facility] ([facility]) [address] [facility], [place], [address], 12/16/2024 17:07:25 12/13/19 25 12/16/2024 TOXAS SURE FLEX 19, UR oxazepam Not Detect ed NG/mg _crea t Not Available [facility] ([facility]) [address] [facility], [place], [address], 12/16/2024 17:07:25 12/13/1912/16/2024 TOXAS SURE FLEX 19, UR temazepam Not Detect ed NG/mg _crea t Expec dayana metab olism of benzo diaze pine class drugs : Paren t Drug Detec dayana Metab olite s ----- ----- - ----- ----- ----- ----- Diaze jey: Desme thyld iazep am, Temaz epam, Oxaze jey Chlor diaze poxid e: Desme thyld iazep am, Oxaze jey Clora zepat e: Desme thyld iazep am, Oxaze jey Halaz epam: Desme thyld iazep am, Oxaze jey Temaz epam: Oxaze jey Oxaze jey: None Not Available [facility] ([facility]) [address] [place] [address], [address], 12/16/2024 17:07:25 12/13/19 25 12/16/2024 TOXAS SURE FLEX 19, UR alprazolam Not Detect ed NG/mg _crea t Not Available [facility] ([facility]) [address] [place], [address], 12/16/2024 17:07:25 12/13/19 25 12/16/2024 TOXAS SURE FLEX 19, UR alpha-hydrox yalprazolam Not Detect ed NG/mg _crea t Not Available [facility] ([facility]) [address] [place], [address], 12/16/2024 17:07:25 12/13/19 25 12/16/2024 TOXAS SURE FLEX 19, UR desalkylflur azepam Not Detect ed NG/mg _crea t Not Available [facility] ([facility]) [address] [place], [address], 12/16/2024 17:07:25 12/13/19 25 12/16/2024 TOXAS SURE FLEX 19, UR lorazepam Not Detect ed NG/mg _crea t Not Available [facility] ([facility]) [address] [place], [address], 12/16/2024 17:07:25 12/13/19 25 12/16/2024 TOXAS SURE FLEX 19, UR alpha-hydrox ytriazolam Not Detect ed NG/mg _crea t Not Available [facility] ([facility]) [address] [place], [address], 12/16/2024 17:07:25 12/13/19 25 12/16/2024 TOXAS SURE FLEX 19, UR clonazepam Not Detect ed NG/mg _crea t Not Available [facility] ([facility]) [address] [place], [address], 12/16/2024 17:07:25 12/13/19 25 12/16/2024 TOXAS SURE FLEX 19, UR 7-aminoclona zepam Not Detect ed NG/mg _crea t Not Available [facility] ([facility]) [address] [place], [address], 12/16/2024 17:07:25 12/13/19 25 12/16/2024 TOXAS SURE FLEX 19, UR midazolam Not Detect ed NG/mg _crea t Not Available [facility] ([facility]) [address] [place], [address], 12/16/2024 17:07:25 12/13/19 25 12/16/2024 TOXAS SURE FLEX 19, UR alpha-hydrox ymidazolam Not Detect ed NG/mg _crea t Not Available [facility] ([facility]) [address] [place], [address], 12/16/2024 17:07:25 12/13/19 25 12/16/2024 TOXAS SURE FLEX 19, UR flunitrazepa m Not Detect ed NG/mg _crea t Not Available [facility] ([facility]) [address] [place], [address], 12/16/2024 17:07:25 12/13/19 25 12/16/2024 TOXAS SURE FLEX 19, UR desmethylflu nitrazepam Not Detect ed NG/mg _crea t Not Available [facility] ([facility]) [address] [place], [address], 12/16/2024 17:07:25 12/13/19 25 12/16/2024 TOXAS SURE FLEX 19, UR cocaine metabolite ia Negati ve NG/mL cutoff :150 Not Available [facility] ([facility]) [address] [place], [address], 12/16/2024 17:07:25 12/13/19 25 12/16/2024 TOXAS SURE FLEX 19, UR ethanol biomarkers ia Negati ve NG/mL cutoff :500 Not Available [facility] ([facility]) [address] [place], [address], 12/16/2024 17:07:25 12/13/19 25 12/16/2024 TOXAS SURE FLEX 19, UR cannabinoids ia COMMEN T NG/mL cutoff :20 Furth er testi ng indic ated Not Available [facility] ([facility]) [address] [place], [address], 12/16/2024 17:07:25 12/13/19 25 12/16/2024 TOXAS SURE FLEX 19, UR 6-acetylmorp samantha ia Negati ve NG/mL cutoff :10 Not Available [facility] ([facility]) [address] [place], [address], 12/16/2024 17:07:25 12/13/19 25 12/16/2024 TOXAS SURE FLEX 19, UR opiate class ia Negati ve NG/mL cutoff :100 Not Available [facility] ([facility]) [address] [place], [address], 12/16/2024 17:07:25 12/13/19 25 12/16/2024 TOXAS SURE FLEX 19, UR oxycodone class ia Negati ve NG/mL cutoff :100 Not Available [facility] ([facility]) [address] [place], [address], 12/16/2024 17:07:25 12/13/19 25 12/16/2024 TOXAS SURE FLEX 19, UR methadone ia Negati ve NG/mL cutoff :100 Not Available [facility] ([facility]) [address] [place], [address], 12/16/2024 17:07:25 12/13/19 25 12/16/2024 TOXAS SURE FLEX 19, UR methadone mtb ia Negati ve NG/mL cutoff :100 Not Available [facility] ([facility]) [address] [place], [address], 12/16/2024 17:07:25 12/13/19 25 12/16/2024 TOXAS SURE FLEX 19, UR buprenorphin e ia Negati ve NG/mL cutoff :5.0 Not Available [facility] ([facility]) [address], [place], [address], 12/16/2024 17:07:25 12/13/19 25 12/16/2024 TOXAS SURE FLEX 19, UR fentanyl ia Negati ve NG/mL cutoff :2.0 Not Available [facility] ([facility]) [address] [place], [address], 12/16/2024 17:07:25 12/13/19 25 12/16/2024 TOXAS SURE FLEX 19, UR tapentadol ia Negati ve NG/mL cutoff :200 Not Available [facility] ([facility]) [address] [place], [address], 12/16/2024 17:07:25 12/13/19 25 12/16/2024 TOXAS SURE FLEX 19, UR propoxyphene ia Negati ve NG/mL cutoff :300 Not Available [facility] ([facility]) [address] [place], [address], 12/16/2024 17:07:25 12/13/19 25 12/16/2024 TOXAS SURE FLEX 19, UR tramadol ia Negati ve NG/mL cutoff :200 Not Available [facility] ([facility]) [address] [place], [address], 12/16/2024 17:07:25 12/13/19 25 12/16/2024 TOXAS SURE FLEX 19, UR methylphenid ate ia Negati ve NG/mL cutoff :100 Not Available [facility] ([facility]) [address] [place] [address], [address], 12/16/2024 17:07:25 12/13/19 25 12/16/2024 TOXAS SURE FLEX 19, UR barbiturates ia Negati ve NG/mL cutoff :200 Not Available [facility] ([facility]) [address] [place], [address], 12/16/2024 17:07:25 12/13/19 25 12/16/2024 TOXAS SURE FLEX 19, UR phencyclidin e ia Negati ve NG/mL cutoff :25 Not Available [facility] ([facility]) [address] [place], [address], 12/16/2024 17:07:25 12/13/19 25 12/16/2024 TOXAS SURE FLEX 19, UR gabapentin ia Negati ve ug/mL cutoff :1.0 Not Available [facility] ([facility]) [address] [place], [address], 12/16/2024 17:07:25 12/13/19 25 12/16/2024 TOXAS SURE FLEX 19, UR anticonvulsa nts Negati ve Not Available [facility] ([facility]) [address] [place], [address], 12/16/2024 17:07:25 12/13/19 25 12/16/2024 TOXAS SURE FLEX 19, UR pregabalin Not Detect ed Not Available [facility] ([facility]) [address] [place], [address], 12/16/2024 17:07:25 12/13/19 25 12/16/2024 TOXAS SURE FLEX 19, UR carisoprodol ia Negati ve NG/mL cutoff :100 Not Available [facility] ([facility]) [address] [place], [address], 12/16/2024 17:07:25 12/13/19 25 12/16/2024 AMPHE TAMIN ES, MS, UR RFX amphetamines Negati ve Not Available [facility] ([facility]) [address] [place], [address], 12/16/2024 17:07:26 12/13/19 25 12/16/2024 AMPHE TAMIN ES, MS, UR RFX methamphetam ine Not Detect ed NG/mg _crea t Not Available [facility] ([facility]) [address] [place], [address], 12/16/2024 17:07:26 12/13/19 25 12/16/2024 AMPHE TAMIN ES, MS, UR RFX amphetamine Not Detect ed NG/mg _crea t Not Available [facility] ([facility]) [address] [place], [address], 12/16/2024 17:07:26 12/13/19 25 12/16/2024 AMPHE TAMIN ES, MS, UR RFX MDMA (ecstasy) Not Detect ed NG/mg _crea t Not Available [facility] ([facility]) [address] [place], [address], 12/16/2024 17:07:26 12/13/19 25 12/16/2024 AMPHE TAMIN ES, MS, UR RFX mda (ecstasy metabolite) Not Detect ed NG/mg _crea t Not Available [facility] ([facility]) [address] [place], [address], 12/16/2024 17:07:26 12/13/19 25 12/16/2024 CANNA BINOI DS, MS, UR RFX cannabinoids +POSIT WILMA+ Not Available [facility] ([facility]) [address] [place], [address], 12/16/2024 17:07:26 12/13/19 25 12/16/2024 CANNA BINOI DS, MS, UR RFX carboxy-THC 28 NG/mg _crea t This test is not inten ded to disti elizabeth manzo en the metab olite s of delta -9-te trahy droca nnabi nol, the predo minan t form of THC in most herba l or marij uana- based produ cts, and delta -8-te trahy droca nnabi nol, a psych oacti ve compo und gener ally synth esize d from other canna binoi ds. Not Available [facility] ([facility]) [address] [facility], [place], [address], 12/16/2024 17:07:26 03/13/2003/20/2025 TOXAS SURE FLEX 19, UR summary report FINAL ===== ===== ===== ===== ===== ===== ===== ===== ===== ===== ===== ===== ===== === Amphe tamin es, MS, Ur RFX Canna binoi ds, MS, Ur RFX ToxAs sure Flex 19, Ur ===== ===== ===== ===== ===== ===== ===== ===== ===== ===== ===== ===== ===== === Test Resul t Flag Units Drug Prese nt Carbo xy-TH C PRESE NT ng/mg creat Carbo xy-TH C is a metab olite of tetra hydro canna binol (THC) . Sourc e of THC is most commo nly herba l marij uana or marij uana- based produ cts, but THC is also prese nt in a sched uled presc ripti on medic ation . Trace amoun ts of THC can be prese nt in hemp and canna bidio l (CBD) produ cts. This test is not inten ded to disti nguis h betwe en delta -9-te trahy droca nnabi nol, the predo minan t form of THC in most herba l or marij uana- based produ cts, and delta -8-te trahy droca nnabi nol. ===== ===== ===== ===== ===== ===== ===== ===== ===== ===== ===== ===== ===== === Test Resul t Flag Units Ref Range Creat inine 168 mg/dL >=20 ===== ===== ===== ===== ===== ===== ===== ===== ===== ===== ===== ===== ===== === Decla red Medic ation s: Medic ation list was not provi ded. ===== ===== ===== ===== ===== ===== ===== ===== ===== ===== ===== ===== ===== === For clini roxanna consu ltati on, pleas e call . ===== ===== ===== ===== ===== ===== ===== ===== ===== ===== ===== ===== ===== === Not Available [facility] ([facility]) [address] [place], [address], 03/20/2025 18:07:45 03/13/2003/20/2025 TOXAS SURE FLEX 19, UR pdf . Not Available [facility] ([facility]) [address] [place], [address], 03/20/2025 18:07:45 03/13/2003/20/2025 TOXAS SURE FLEX 19, UR creatinine 168 mg/dL >=20 REFER ENCE RANGE : Ref Range >=20 Not Available [facility] ([facility]) [address] [place], [address], 03/20/2025 18:07:45 03/13/20 25 03/20/2025 TOXAS SURE FLEX 19, UR amphetamines ia COMMEN T NG/mL cutoff :300 Furth er testi ng indic ated Not Available [facility] ([facility]) [address] [place], [address], 03/20/2025 18:07:45 03/13/20 25 03/20/2025 TOXAS SURE FLEX 19, UR benzodiazepi maribell Negati ve Not Available [facility] ([facility]) [address] [place], [address], 03/20/2025 18:07:45 03/13/20 25 03/20/2025 TOXAS SURE FLEX 19, UR diazepam Not Detect ed NG/mg _crea t Not Available [facility] ([facility]) [address] [place], [address], 03/20/2025 18:07:45 03/13/20 25 03/20/2025 TOXAS SURE FLEX 19, UR desmethyldia zepam Not Detect ed NG/mg _crea t Not Available [facility] ([facility]) [address] [place], [address], 03/20/2025 18:07:45 03/13/20 25 03/20/2025 TOXAS SURE FLEX 19, UR oxazepam Not Detect ed NG/mg _crea t Not Available [facility] ([facility]) [address] [place], [address], 03/20/2025 18:07:45 03/13/20 25 03/20/2025 TOXAS SURE FLEX 19, UR temazepam Not Detect ed NG/mg _crea t Expec dayana metab olism of benzo diaze pine class drugs : Paren t Drug Detec dayana Metab olite s ----- ----- - ----- ----- ----- ----- Diaze jey: Desme thyld iazep am, Temaz epam, Oxaze jey Chlor diaze poxid e: Desme thyld iazep am, Oxaze jey Clora zepat e: Desme thyld iazep am, Oxaze jey Halaz epam: Desme thyld iazep am, Oxaze jey Temaz epam: Oxaze jey Oxaze jey: None Not Available [facility] ([facility]) [address] [place], [address], 03/20/2025 18:07:45 03/13/20 25 03/20/2025 TOXAS SURE FLEX 19, UR alprazolam Not Detect ed NG/mg _crea t Not Available [facility] ([facility]) [address] [place], [address], 03/20/2025 18:07:45 03/13/20 25 03/20/2025 TOXAS SURE FLEX 19, UR alpha-hydrox yalprazolam Not Detect ed NG/mg _crea t Not Available [facility] ([facility]) [address] [place], [address], 03/20/2025 18:07:45 03/13/20 25 03/20/2025 TOXAS SURE FLEX 19, UR desalkylflur azepam Not Detect ed NG/mg _crea t Not Available [facility] ([facility]) [address] [place], [address], 03/20/2025 18:07:45 03/13/20 25 03/20/2025 TOXAS SURE FLEX 19, UR lorazepam Not Detect ed NG/mg _crea t Not Available [facility] ([facility]) [address] [place], [address], 03/20/2025 18:07:45 03/13/20 25 03/20/2025 TOXAS SURE FLEX 19, UR alpha-hydrox ytriazolam Not Detect ed NG/mg _crea t Not Available [facility] ([facility]) [address] [facility], [place], [address], 03/20/2025 18:07:45 03/13/20 25 03/20/2025 TOXAS SURE FLEX 19, UR clonazepam Not Detect ed NG/mg _crea t Not Available [facility] ([facility]) [address] [place], [address], 03/20/2025 18:07:45 03/13/20 25 03/20/2025 TOXAS SURE FLEX 19, UR 7-aminoclona zepam Not Detect ed NG/mg _crea t Not Available [facility] ([facility]) [address] [facility], [place], [address], 03/20/2025 18:07:45 03/13/20 25 03/20/2025 TOXAS SURE FLEX 19, UR midazolam Not Detect ed NG/mg _crea t Not Available [facility] ([facility]) [address] [facility], [place], [address], 03/20/2025 18:07:45 03/13/20 25 03/20/2025 TOXAS SURE FLEX 19, UR alpha-hydrox ymidazolam Not Detect ed NG/mg _crea t Not Available [facility] ([facility]) [address] [place], [address], 03/20/2025 18:07:45 03/13/20 25 03/20/2025 TOXAS SURE FLEX 19, UR flunitrazepa m Not Detect ed NG/mg _crea t Not Available [facility] ([facility]) [address] [place], [address], 03/20/2025 18:07:45 03/13/20 25 03/20/2025 TOXAS SURE FLEX 19, UR desmethylflu nitrazepam Not Detect ed NG/mg _crea t Not Available [facility] ([facility]) [address] [place], [address], 03/20/2025 18:07:45 03/13/20 25 03/20/2025 TOXAS SURE FLEX 19, UR cocaine metabolite ia Negati ve NG/mL cutoff :150 Not Available [facility] ([facility]) [address] [place], [address], 03/20/2025 18:07:45 03/13/20 25 03/20/2025 TOXAS SURE FLEX 19, UR ethanol biomarkers ia Negati ve NG/mL cutoff :500 Not Available [facility] ([facility]) [address] [place], [address], 03/20/2025 18:07:45 03/13/20 25 03/20/2025 TOXAS SURE FLEX 19, UR cannabinoids ia COMMEN T NG/mL cutoff :20 Furth er testi ng indic ated Not Available [facility] ([facility]) [address] [place], [address], 03/20/2025 18:07:45 03/13/20 25 03/20/2025 TOXAS SURE FLEX 19, UR 6-acetylmorp samantha ia Negati ve NG/mL cutoff :10 Not Available [facility] ([facility]) [address] [place], [address], 03/20/2025 18:07:45 03/13/20 25 03/20/2025 TOXAS SURE FLEX 19, UR opiate class ia Negati ve NG/mL cutoff :100 Not Available [facility] ([facility]) [address] [place], [address], 03/20/2025 18:07:45 03/13/20 25 03/20/2025 TOXAS SURE FLEX 19, UR oxycodone class ia Negati ve NG/mL cutoff :100 Not Available [facility] ([facility]) [address] [place], [address], 03/20/2025 18:07:45 03/13/20 25 03/20/2025 TOXAS SURE FLEX 19, UR methadone ia Negati ve NG/mL cutoff :100 Not Available [facility] ([facility]) [address] [place], [address], 03/20/2025 18:07:45 03/13/20 25 03/20/2025 TOXAS SURE FLEX 19, UR methadone mtb ia Negati ve NG/mL cutoff :100 Not Available [facility] ([facility]) [address] [place], [address], 03/20/2025 18:07:45 03/13/20 25 03/20/2025 TOXAS SURE FLEX 19, UR buprenorphin e ia Negati ve NG/mL cutoff :5.0 Not Available [facility] ([facility]) [address] [place] [address], [address], 03/20/2025 18:07:45 03/13/20 25 03/20/2025 TOXAS SURE FLEX 19, UR fentanyl ia Negati ve NG/mL cutoff :2.0 Not Available [facility] ([facility]) [address] [place] [address], [address], 03/20/2025 18:07:45 03/13/20 25 03/20/2025 TOXAS SURE FLEX 19, UR tapentadol ia Negati ve NG/mL cutoff :200 Not Available [facility] ([facility]) [address] [place], [address], 03/20/2025 18:07:45 03/13/20 25 03/20/2025 TOXAS SURE FLEX 19, UR propoxyphene ia Negati ve NG/mL cutoff :300 Not Available [facility] ([facility]) [address] [place] [address], [address], 03/20/2025 18:07:45 03/13/20 25 03/20/2025 TOXAS SURE FLEX 19, UR tramadol ia Negati ve NG/mL cutoff :200 Not Available [facility] ([facility]) [address] [facility], [place], [address], 03/20/2025 18:07:45 03/13/20 25 03/20/2025 TOXAS SURE FLEX 19, UR methylphenid ate ia Negati ve NG/mL cutoff :100 Not Available [facility] ([facility]) [address] [place], [address], 03/20/2025 18:07:45 03/13/20 25 03/20/2025 TOXAS SURE FLEX 19, UR barbiturates ia Negati ve NG/mL cutoff :200 Not Available [facility] ([facility]) [address] [place], [address], 03/20/2025 18:07:45 03/13/20 25 03/20/2025 TOXAS SURE FLEX 19, UR phencyclidin e ia Negati ve NG/mL cutoff :25 Not Available [facility] ([facility]) [address] [place], [address], 03/20/2025 18:07:45 03/13/20 25 03/20/2025 TOXAS SURE FLEX 19, UR gabapentin ia Negati ve ug/mL cutoff :1.0 Not Available [facility] ([facility]) [address] [place], [address], 03/20/2025 18:07:45 03/13/20 25 03/20/2025 TOXAS SURE FLEX 19, UR anticonvulsa nts Negati ve Not Available [facility] ([facility]) [address] [place], [address], 03/20/2025 18:07:45 03/13/20 25 03/20/2025 TOXAS SURE FLEX 19, UR pregabalin Not Detect ed Not Available [facility] ([facility]) [address] [place], [address], 03/20/2025 18:07:45 03/13/20 25 03/20/2025 TOXAS SURE FLEX 19, UR carisoprodol ia Negati ve NG/mL cutoff :100 Not Available [facility] ([facility]) [address] [place], [address], 03/20/2025 18:07:45 03/13/20 25 03/20/2025 AMPHE TAMIN ES, MS, UR RFX amphetamines Negati ve Not Available [facility] ([facility]) [address] [place], [address], 03/20/2025 18:07:46 03/13/2003/20/2025 AMPHE TAMIN ES, MS, UR RFX methamphetam ine Not Detect ed NG/mg _crea t Not Available [facility] ([facility]) [address] [place], [address], 03/20/2025 18:07:46 03/13/20 25 03/20/2025 AMPHE TAMIN ES, MS, UR RFX amphetamine Not Detect ed NG/mg _crea t Not Available [facility] ([facility]) [address] [place], [address], 03/20/2025 18:07:46 03/13/2003/20/2025 AMPHE TAMIN ES, MS, UR RFX MDMA (ecstasy) Not Detect ed NG/mg _crea t Not Available [facility] ([facility]) [address] [place], [address], 03/20/2025 18:07:46 03/13/2003/20/2025 AMPHE TAMIN ES, MS, UR RFX mda (ecstasy metabolite) Not Detect ed NG/mg _crea t Not Available [facility] ([facility]) [address] [place] [address], [address], 03/20/2025 18:07:46 03/13/20 25 03/20/2025 CANNA BINOI DS, MS, UR RFX cannabinoids +POSIT WILMA+ Not Available [facility] ([facility]) [address] [facility], [place], [address], 03/20/2025 18:07:46 03/13/20 25 03/20/2025 CANNA BINOI DS, MS, UR RFX carboxy-THC PRESEN T NG/mg _crea t Kirstin ntrat ion is below 20 ng/mL . Not Available [facility] ([facility]) [address] [facility], [place], [address], 03/20/2025 18:07:46 03/13/2003/13/2025 drug scree n, urine Amphetamines negati ve Not Available [address], [address], 03/13/2025 16:23:10 03/13/20 25 03/13/2025 drug scree n, urine Barbiturates negati ve Not Available [address], [address], 03/13/2025 16:23:10 03/13/20 25 03/13/2025 drug scree n, urine Buprenorphin e negati ve Not Available [address], [address], 03/13/2025 16:23:10 03/13/20 25 03/13/2025 drug scree n, urine Benzodiazepi maribell negati ve Not Available [address], [address], 03/13/2025 16:23:10 03/13/20 25 03/13/2025 drug scree n, urine Cocaine negati ve Not Available [address], [address], 03/13/2025 16:23:10 03/13/20 25 03/13/2025 drug scree n, urine Methamphetam ine negati ve Not Available [address], [place], [address], 03/13/2025 16:23:10 03/13/20 25 03/13/2025 drug scree n, urine Ectasy negati ve Not Available [address], [place], [address], 03/13/2025 16:23:10 03/13/20 25 03/13/2025 drug scree n, urine Methadone negati ve Not Available [address], [address], 03/13/2025 16:23:10 03/13/20 25 03/13/2025 drug scree n, urine Opiates negati ve Not Available [address], [place], [address], 03/13/2025 16:23:10 03/13/20 25 03/13/2025 drug scree n, urine Oxycodone negati ve Not Available [address], [address], 03/13/2025 16:23:10 03/13/20 25 03/13/2025 drug scree n, urine Tricyclic Antidepressa nts positi ve Not Available [address], [address], 03/13/2025 16:23:10 03/13/20 25 03/13/2025 drug scree n, urine Marijuana positi ve Not Available [address], [address], 03/13/2025 16:23:10 03/13/20 25 03/13/2025 drug scree n, urine Morphine negati ve Not Available [facility] [address] [facility], [place], [address], 03/13/2025 16:23:10 Result Notes None recorded. Problems Name Problem SNOMED Code Status Onset Date Resolution Date Notes Provider Name and Address Organization Details Recorded Time Hyperlipide gemma 19003815 Active 2023 KISHORE Pearson [address] [place] [address], [phone], [employer] 14:19:27 Vitamin D deficiency 49054679 Active 2023 KISHORE Pearson [address] [place] [address], [address], [employer] 14:19:32 Essential hypertensio n 64711534 Active 2023 KISHORE Pearson [address] [place] [address], [address] 8, [employer] 14:19:19 Allergic rhinitis 45439258 Active 2023 KISHORE Pearson [address] [place] [address], [address], [employer] 5 14:19:14 Gastroesoph ageal reflux disease 196464604 Active 2023 KISHORE Pearson [address] [place] [address], [address], [employer] 14:19:25 Fibromyalgi a 549205418 Active 2023 KISHORE Pearson [address] [place] [address], [address], [employer] 5 14:19:22 Chronic obstructive pulmonary disease 90382065 Active 2023 KISHORE Pearson [address] [place] [address], [address], [employer] 5 14:19:16 Depressive disorder 92132332 Active 2023 KISHORE Pearson [address] [place] [address], [address] 8, [employer] 5 14:19:18 Insomnia 561546264 Active 2023 KISHORE Pearson [address] [place] [address], [address] 8, [employer] 5 14:19:30 Anxiety 80452168 Active 2024 KISHORE Pearson [address] [place] [address], [address] 8, [employer] 5 16:06:29 Chronic pain 23078668 Active 2024 KISHORE Pearson [address] [place] [address], [address] 8, [employer] 5 16:06:42 Left-sided piriformis syndrome 2235406424642 06 Active 2024 KISHORE Pearson [address] [place] [address], [address], [employer] 16:30:14 Problem Notes None recorded. Procedures Surgical History Date Name Laterality Status Provider Name and Address Organization Details Recorded Time Tubal Ligation completed [employer] 06/22/2024 17:00:46 Knee Replacement completed [employer] 06/22/2024 17:00:57 Orthopedic Surgery completed [employer] 06/22/2024 17:01:07 Carpal Tunnel Surgery completed [employer] 06/22/2024 17:01:21 Gallbladder Surgery completed [employer] 06/22/2024 17:01:27 Total Hysterectomy completed [employer] 06/22/2024 17:01:50 Imaging Results None recorded. Procedure Notes None recorded. Medical Equipment None Reported. Allergies Allergen ID Allergen Name Allergen Category Reaction Reaction Severity Criticality Documentation Date Start Date Code Code System Note Provider Name and Address Organization Details Recorded Time 52748 latex environme nt,medica tion Not available Not available Not available 06/22/2024 14248 91 [facility] [employer] 13:46:42 38080 adhesive tape environme nt,medica tion Not available Not available Not available 12/12/2024 Eleanor [employer] 13:46:36 Medications Name Sig Start Date Stop Date Status Note LastModified by Organization Details LastModified Time cyclobenzap rine 10 mg tablet TAKE 1 TABLET BY MOUTH 3 TIMES A DAY MAY CAUSE DROWSINES S 2024 active Not Available Not Available Not Avai lable gabapentin 600 mg tablet TAKE ONE TABLET BY MOUTH FOUR TIMES DAILY FOR PAIN MAY CAUSE DROWSINES S 06/22 completed Not Available Not Available Not Available quetiapine 300 mg tablet TAKE TWO TABLETS BY MOUTH EVERY DAY AT BEDTIME MAY CAUSE DROWSINES S active Not Available Not Available No t Available atorvastati n 10 mg tablet TAKE ONE TABLET BY MOUTH EVERY DAY active Not Available Not Available No t Available metoprolol succinate ER 50 mg tablet,exte nded release 24 hr TAKE ONE TABLET BY MOUTH EVERY DAY DIRECTED active Not Available Not Available No t Available hydrocodone 5 mg-acetamin ophen 325 mg tablet TAKE ONE TABLET BY MOUTH THREE TIMES DAILY NEEDED FOR PAIN MAY CAUSE DROWSINES S 06/22 completed Not Available Not Available Not Available Medrol (Shalom) 4 mg tablets in a dose pack Take 1 dose pk by oral route as directed for 6 days. 03/26 completed Not Available Not Available Not Available omeprazole 40 mg capsule,del ayed release TAKE ONE CAPSULE BY MOUTH EVERY DAY active Not Available Not Available No t Available ondansetron 8 mg disintegrat ing tablet DISSOLVE ONE TABLET BY MOUTH THREE TIMES DAILY NEEDED FOR NAUSEA AND VOMITING 2024 active Not Available Not Available Not Avai lable alprazolam 0.5 mg tablet TAKE ONE TABLET BY MOUTH TWICE DAILY FOR ANXIETY MAY CAUSE DROWSINES S 06/22 completed Not Available Not Available Not Available famotidine 20 mg tablet TAKE ONE TABLET BY MOUTH TWICE DAILY DIRECTED active Not Available Not Available No t Available amitriptyli ne 25 mg tablet TAKE ONE TABLET BY MOUTH AT BEDTIME active Not Available Not Available No t Available gabapentin 800 mg tablet TAKE ONE TABLET BY MOUTH THREE TIMES DAILY MAY CAUSE DROWSINES S 06/22 completed Not Available Not Available Not Available trazodone 100 mg tablet TAKE ONE TABLET BY MOUTH EVERY DAY AT BEDTIME active Not Available Not Available No t Available lisinopril 10 mg tablet TAKE TWO TABLETS BY MOUTH EVERY DAY active Not Available Not Available No t Available cholecalcif gisselle (vitamin D3) 125 mcg (5,000 unit) capsule TAKE ONE CAPSULE BY MOUTH EVERY DAY DIRECTED active Not Available Not Available No t Available Allergy Relief (loratadine ) 10 mg tablet TAKE ONE TABLET BY MOUTH EVERY DAY DIRECTED active Not Available Not Available No t Available duloxetine 60 mg capsule,del ayed release TAKE ONE CAPSULE BY MOUTH EVERY DAY active Not Available Not Available No t Available pregabalin 75 mg capsule TAKE 1 CAPSULE BY MOUTH 3 TIMES A DAY active Not Available Not Available No t Available Symbicort 160 mcg-4.5 mcg/actuati on HFA aerosol inhaler INHALE TWO PUFFS BY MOUTH TWICE DAILY DIRECTED active Not Available Not Available No t Available Vitals Date Recorded Body height Body mass index (BMI) Body weight Body temperature Heart rate Oxygen saturation Systolic And Diastolic Systolic And Diastolic Systolic And Diastolic Provider Name and Address Organization Details Last Updated DateTime 5 162.56 cm 42.9 kg/m2 038143. 81 g 98.5 [degF] 94 /min 96 % 140/98 mm[Hg] 146/96 mm[Hg] 150/102 mm[Hg] [facility] [employer] 5 13:55:52 Date Recorded Body height Body mass index (BMI) Body weight Heart rate Oxygen saturation Systolic And Diastolic Provider Name and Address Organization Details Last Updated DateTime 5 162.56 cm 42.8 kg/m2 986639. 6 g 102 /min 94 % 129/89 mm[Hg] Lydia Greco [employer] 5 15:38:17 Date Recorded Body weight Oxygen saturation Heart rate Body mass index (BMI) Body height Systolic And Diastolic Systolic And Diastolic Provider Name and Address Organization Details Last Updated DateTime 4 604347. 86 g 98 % 68 /min 41 kg/m2 162.56 cm 154/100 mm[Hg] 162/108 mm[Hg] Eleanor Verg[facility] [employer] 16:52:00 Social History Question Answer Notes LastModified by Organizat ion Details LastModified Time Tobacco Smoking Status Current Every Day Smoker Eleanor V[facility]ara [employer], [employer] 06/22/2024 16:55:54 Do You Have An Advance Directive? No Information not available 06/22/2024 Is Your Home Air Conditioned? No Information not available 12/12/2024 Are You Blind Or Do You Have Difficulty Seeing? No Information not available 06/22/2024 What Is Your Level Of Caffeine Consumption? Moderate Information not available 06/22/2024 Have You Been To An Area Known To Be High Risk For COVID-19? No Information not available 06/22/2024 Are You Deaf Or Do You Have Serious Difficulty Hearing? No Information not available 06/22/2024 What Type Of Diet Are You Following? REGULAR Information not available 06/22/2024 What Is The Highest Grade Or Level Of School You Have Completed Or The Highest Degree You Have Received? [id number] Information not available 06/22/2024 Have There Been Any Changes To Your Family Or Social Situation? No Information no t available 06/22/2024 Which Of Your Hands Is Dominant? Right Information not available 06/22/2024 Do You Have A Medical Power Of Recreational Therapy Aide? No Information not available 06/22/2024 What Was The Date Of Your Most Recent Tobacco Screening? 03/13/2025 [email or web address] Information not available 03/13/2025 What Is Your Relationship Status? Information not available 06/22/2024 Are You Sexually Active? Yes Information not available 06/22/2024 Do You Have Smoke And Carbon Monoxide Detectors In Your Home? Yes Information not available 12/12/2024 At What Age Did You Start Smoking Tobacco? 15 Information not available 06/22/2024 Are You Passively Exposed To Smoke? Yes Information no t available 12/12/2024 Are There Any Smokers In Your House? Yes Information not available 12/12/2024 How Much Tobacco Do You Smoke? 0.5 PPD Information not available 06/22/2024 Do You Participate In Social Media? Yes Information not available 06/22/2024 Has Tobacco Cessation Counseling Been Provided? Yes Information not available 06/22/2024 On What Date Was Tobacco Cessation Counseling Provided? 12/12/2024 Information not available 12/12/2024 Have You Recently Traveled Abroad? No Information not available 06/22/2024 Do You Have Difficulty Walking Or Climbing Stairs? No Information not available 06/22/2024 Are You Currently In School? No Information not available 06/22/2024 What Contraceptive Method Was Reported At Start Of This Visit? Female Sterilization Information not available 12/12/2024 Do You Have Any Dietary Restrictions? No Information not available 06/22/2024 Sex: Female Functional Status Question Answer Note LastModified by Eureka King ion Details LastModified Time Do you use any illicit or recreational drugs? No Information not available 06/22/2024 Do you or have you ever used any other forms of tobacco or nicotine? No Information not available 06/22/2024 What is your level of alcohol consumption? None Information not available 06/22/2024 Are you currently employed? No Information not available 06/22/2024 Do you have transportation difficulties? No Information not available 06/22/2024 Are you able to walk independently without assistance or assistive devices? YESWOREST Information not available 06/22/2024 Do you have difficulty doing errands alone? No Information not available 06/22/2024 Are you able to care for yourself independently? Yes Information not available 06/22/2024 Do you have difficulty dressing, bathing, grooming, or toileting? No Information not available 06/22/2024 What is your exercise level? None Information not available 06/22/2024 Mental Status Question Answer Note LastModified by Organizat ion Details LastModified Time Do you feel stressed (tense, restless, nervous, or anxious, or unable to sleep at night)? [id number] Information not available 06/22/2024 Do you have difficulty concentrating, remembering or making decisions? No Information no t available 06/22/2024 Family History Relationship Description Onset Age of this Age Resolved Age Notes LastModified by Organization Details LastModified Time Father Diabetes mellitus Not available 2023 16:54:57 Maternal Grandmother Malignant neoplasm of breast Not available 2023 16:55:22 Medical History Condition Response Coronary Artery Disease N Other N Gout N Kidney Stones N Blood Diseases N Hyperthyroidism N Blood Transfusion N Breast Cancer N Emergency room visit since last appointm ent. N COPD Y Depression N Dermatologic Disorders N Hypothyroidism N Lung Disease N Developmental or Behavioral Disorders N Defects or Inherited Disease N Breast Problem N Difficulty Swallowing N Anesthesia Complications N History of STI N Meniere's disease N Anxiety Disorder N Muscle, Joint, or Bone Problems N Autoimmune disease N Vision or Eye Problems N Arthritis N Polyps N Infertility N Mental Disorder N Congenital Anomalies N Acid Reflux (GERD) N Cancer N Stroke N Neurologic/Epilepsy N Endometriosis N Bladder or Kidney Problems N High Cholesterol Y Liver Disease N Organ Transplant N Psychiatric/Mental Health Condition N Fibromyalgia Y Dialysis N Schizophrenia N Headaches N Kidney Disease N Allergies/Hayfever N Heart Problems N Ear or Hearing Problems N Hospitalizations N Learning Disorder N Artificial Joints N Thyroid Problems N GI Problems N Acne N ADD/ADHD N Eating Disorder N Anemia N Constipation N Mental Illness N Ovarian Cancer N Diabetes N Bedwetting N Hepatitis/Liver Disease N Tuberculosis N Eczema N Diverticulitis N Abuse/Domestic Violence N Asthma N Trauma/Violence N Substance Abuse N Reflux/GERD N Depression/ depression N Hepatitis N Heart Disease N Pulmonary Embolism N Tourette Syndrome N Chronic Ear Infections N Pre-Eclampsia N Hypertension Y Chicken Pox N Autism Spectrum Disorder (ASD) N Osteoporosis N Thrombophilias N Gynecological History Statement/Question Response Menses Monthly N Date of Last Pap Smear Current Control Method Hysterectom y Most Recent Mammogram Sexually Active? Y Obstetrics History GPAL:G 6 P 1 0 5 1 Type Value Multiple Births 0 Full Term 1 Induced 0 Spontaneous 5 Premature 0 Living 1 Ectopics 0 Total 6 Immunizations Vaccine Type Date Status Note Provider Nam e and Address Organization Details Recorded Time COVID-19, mRNA, LNP-S, PF, mercedes-sucrose, 30 mcg/0.3 mL 06/22/2024 completed KISHORE Pearson [address] [place] [address], [phone], [employer] 06/23/2024 15:26:19 Influenza, split virus, trivalent, PF 06/22/2024 completed KISHORE Pearson [address] [place] [address], [phone], [employer] 06/23/2024 15:26:19 Influenza, MDCK, quadrivalent, PF 04/16/2023 completed Eleanor Vice null, [employer] 06/22/2024 16:53:05 Influenza, recombinant, quadrivalent, PF 04/20/2019 completed Eleanor Vice null, [employer] 06/22/2024 16:53:05 COVID-19 vaccine, vector-nr, rS-Ad26, PF, 0.5 mL 10/05/2020 completed Eleanor Vice null, [employer] 06/22/2024 16:53:05 COVID-19 vaccine, vector-nr, rS-Ad26, PF, 0.5 mL 05/17/2021 completed Eleanor Vice null, [employer] 06/22/2024 16:53:05 COVID-19, mRNA, LNP-S, PF, 50 mcg/0.5 mL 04/16/2023 completed Eleanor Vice null, [employer] 06/22/2024 16:53:05 Tdap 11/03/2021 completed Eleanor Vice null, [employer] 06/22/2024 16:53:05 Hep A, adult 08/08/2018 completed Eleanor Vice null, [employer] 06/22/2024 16:53:05 Hep A, adult 02/03/2018 completed Eleanor Vice null, [employer] 06/22/2024 16:53:05 Influenza, split virus, quadrivalent, PF 03/14/2018 completed Eleanor Vice null, [employer] 06/22/2024 16:53:05 Influenza, split virus, quadrivalent, PF 04/15/2021 completed Eleanor Vice null, [employer] 06/22/2024 16:53:05 Influenza, split virus, quadrivalent, PF 04/27/2022 completed Eleanor Vice null, [employer] 06/22/2024 16:53:05 Influenza, split virus, quadrivalent, PF 05/22/2020 completed Eleanor Vice null, [employer] 06/22/2024 16:53:05 Past Encounters Encounter ID Performer Location Encounter Start Date Encounter Closed Date Diagnosis/Indication Diagnosis SNOMED-CT Code Diagnosis ICD10 Code Diagnosis IMO Codes Diagnosis Note [id number] KISHORE Pearson [facility] [address] [place] [address] 06/22/2024 16:19:15 06/22/2024 18:08:01 Administration of SARS-CoV-2 vaccine 1664656944 Z23 Administra tion of influenza vaccine 66027098 Z23 Hyperlipidemia 50837964 E78.5 Vitamin D deficiency 347 12572 E55.9 Gastroesop hageal reflux disease 064541532 K21.9 Essential hypertension 98982854 I10 Allergic rhinitis 541343 04 J30.9 Fibromyalgia 678636903 M 79.7 Chronic ob structive pulmonary disease 61729611 J44.9 Depressive disorder 3548 9007 F32.A Insomnia 921266242 G47.0 0 Body mass index 40+ - severely obese 161404375 Z68.41 [id number] KISHORE Pearson [facility] [address] [place] [address] 12/12/2024 13:25:33 12/12/2024 14:28:58 Long-term current use of drug therapy 136505158 Z79.899 02973465 Fibromyalgia 035909082 M 79.7 Will start CymbaltaUD S today but will not send narcotics for fibromyalg ia - may consider Lyrica Allergic rhinitis 529811 04 J30.9 Chronic ob structive pulmonary disease 23543698 J44.9 Insomnia 102129913 G47.0 0 Gastroesop hageal reflux disease 739788661 K21.9 [id number] KISHORE Pearson [facility] [address] [place] [address] 03/13/2025 15:05:51 03/13/2025 16:29:39 Anxiety 73115414 F41.9 01171 Chronic pain 01437608 G8 9.29 910938 Left-sided piriformis syndrome 2884959739 32479 G57.02 60672752 Health Concerns Section Related Observation LastModified by Organization Detai ls LastModified Time None Recorded Concern Status LastModified by Organization Details LastModified Time None Recorded Advance Directives Directive N: Payers Insurance Date Sequence Insurance Name Policy Number Policy Marrero Covered Member ID Marrero Member ID Guarantor Name 08/17/2024 1 MEDICAID-[facility] CHOICES - FFS/TRADITIONA L Alejandro Madsen [id number] Alejandro Madsen 05/08/2025 1 [facility] [place]PL[place] - [place]MO) [id number] Alejandro Madsen [id number] Alejandro Madsen 08/17/2024 1 [place] [id number] Alejandro Madsen [id number] Alejandro Madsen Notes Date Note Type Note Provider Name and Address Organization Details Recorded Time 06/22/2024 text/html Patient presents to establish care.History of HLD, vitamin D deficiency, GERD, HTN, allergic rhinitis, fibromyalgia, COPD, depression, insomnia. KISHORE Pearson [address] [place] [address], [phone], [facility] [employer] 06/23/2024 15:29:49 12/12/2024 text/html ROS as noted in the HPI Patient presents for followup. She has a history of COPD, depression, anxiety, HTN, fibromyalgia, GERD, HLD, insomnia, Vitamin D deficiency.States she is not doing well today and it is currently in a lot of pain. Her fibromyalgia is not well controlled. Her requests that she have a drug screen to prove that she is clean because her medications were stopped at the pain clinic several years ago when they told her her drug screen was inappropriate. KISHORE Pearson [address] [place], [address], [employer] 12/15/2024 13:31:14 03/13/2025 text/html ROS as noted in the HPI Patient presents for followup.She is having pain in her left hip. Hurts to sit on left side - has to lean to the side to relieve the pressure.Has a history of anxiety. Was on Xanax in the past. Requests referral to psychiatry.History of chronic pain. Has lumbar disc disease. Has had bilateral forearm fractures following a fall. had right tib/fib fracture. Was on Gabapentin in the past for neuropathic pain.History of HTN. States meds are working. Denies chest pain, headache, vertigo, dsypnea. KISHORE Pearson [address] [place], [address], [employer] 03/16/2025 17:11:54 OBGyn Episode No OBEpisode recorded.
--- OUTSIDE RECORDS SUMMARY | 2025-05-26 08:47 | XMS_ITS | Clinical Summary ---
Author Organization [facility] Address [address] [place] [address] Care Team Providers Care Utility Assembler Name Role Phone Ifeoma Pate Primary Care Provider [phone] Allergies Active Allergy Reactions Criticality Noted Date Comments Other Rash Low 11/03/2021 Clear Medical Tape Medications ALPRAZolam (Xanax) 0.5 MG tablet TAKE ONE TABLET BY MOUTH TWICE DAILY FOR anxiety MAY CAUSE DROWSINESS 10/16/19 22 Active albuterol (Ventolin HFA) 108 (90 Base) MCG/ACT inhaler 01/14/20 18 Active budesonide-formote rol (Symbicort) 160-4.5 MCG/ACT inhaler 12/18/19 18 Active gabapentin (Neurontin) 600 MG tablet Take 600 mg by mouth 4 (four) times a day. 10/16/19 22 Active amitriptyline (Elavil) 25 MG tablet Take 25 mg by mouth every night. 10/09/19 22 Active traZODone (Desyrel) 100 MG tablet Take 100 mg by mouth every night. 10/09/19 22 Active loratadine (Claritin) 10 MG tablet Take 10 mg by mouth 1 (one) time each day. 10/09/19 22 Active lisinopril 10 MG tablet Take 20 mg by mouth 1 (one) time each day. 10/09/19 22 Active metoprolol succinate XL (Toprol-XL) 50 MG 24 hr tablet Take 50 mg by mouth 1 (one) time each day. 10/09/19 22 Active omeprazole OTC (PriLOSEC OTC) 20 MG EC tablet Take 20 mg by mouth 2 (two) times a day. 11/19/19 18 Active Vitamin D3 125 MCG (5000 UT) capsule Take 5,000 Units by mouth 1 (one) time each day. 10/09/19 22 Active ondansetron ODT (Zofran-ODT) 8 MG disintegrating tablet Take 8 mg by mouth every 8 (eight) hours if needed for nausea or vomiting. Active famotidine (Pepcid) 20 MG tablet 20 mg 2 (two) times a day. Active QUEtiapine (SEROquel) 300 MG tablet Take 600 mg by mouth every night. Active acetaminophen (Tylenol) 500 MG tablet Take 2 tablets (1,000 mg total) by mouth every 6 (six) hours if needed for mild pain. 100 tablet 11/06/19 22 Active ibuprofen 400 MG tablet Take 1 tablet (400 mg total) by mouth every 6 (six) hours if needed for moderate pain. 50 tablet 11/06/19 22 Active oxyCODONE (Roxicodone) 5 MG immediate release tablet Take 1 tablet (5 mg total) by mouth every 6 (six) hours if needed (severe breakthrough pain). 20 tablet 11/06/19 22 Active methocarbamol (Robaxin) 750 MG tablet Take 1 tablet (750 mg total) by mouth every 6 (six) hours if needed for muscle spasms. 50 tablet 11/06/19 22 Active Active Problems Problem Noted Date Diagnosed Date Morbid obesity with body mass index (BMI) of 40. 0 or higher 11/06/2021 Resolved Problems Problem Noted Date Diagnosed Date Resolved Date Type I or II open fracture o f right tibia and fibula 11/02/2021 11/05/2021 Overview (11/03/2021): Added automatically from request for surgery [id number] Immunizations Immunization Administration Dates Next Due Tdap 11/03/2021 Family History Medical History Relation Name Comments Diabetes Father Diabetes Mother Breast cancer Other Relation Name Status Comments Father Mother Other Social History Tobacco Use Types Packs/Day Years Used Date Smoking Tobacco: Never Alcohol Use Standard Drinks/Week Comments No 0 (1 standard drink = 0.6 oz pur e alcohol) Comments No Sex and Gender Information Value Date Recorded Sex Assigned at Not on file Legal Sex Female 6:59 PM EDT Gender Identity Not on file Sexual Orientation Not on file Last Filed Vital Signs Vital Sign Reading Time Taken Comments Blood Pressure 94/61 11/05/2021 7:32 AM EDT Pulse 108 11/05/2021 7:32 AM EDT Temperature 37.4 C (99.3 F) 11/05/2021 7:32 AM EDT Respiratory Rate 17 11/05/2021 7:32 AM EDT Oxygen Saturation 94% 11/05/2021 7:32 AM EDT Inhaled Oxygen Concentration - - Weight 108 kg (237 lb) 11/04/2021 4:44 PM EDT Height 162.6 cm (5' 4 ) 11/04/2021 4:44 PM EDT Body Mass Index 40.68 11/04/2021 4:44 PM EDT Plan of Treatment Health Maintenance Due Date Last Done Comments [facility]-Depression Screening 1975 [facility]-Infant/Child/Adol SDOH Screenings 1975 [facility]- SDOH Screenings 1993 [facility]-Adult SDOH Screenings 1993 [facility]-Hepatitis B Vaccines (1 of 3 - 19+ 3-dose series) 1994 [facility]-Pap Smear 1996 [facility]-Cervical Cancer Screening 2005 [facility]-HPV/Cotest 2005 CT Colonography 2020 Colonoscopy 2020 FIT-DNA 2020 FIT 2020 FOBT 2020 Sigmoidoscopy 2020 [facility]-Colorectal Cancer Screening 2020 [id number] Vaccine (3 - season) 2025 05/17/2021, 10/05/2020 [facility]-Influenza Vaccine (#1) 03/05/202504/15, 05/22/2020, 04/20/2019, Additional history exists [facility]-Zoster Vaccines (1 of 2) 2025 [facility]-DTaP,Tdap,and Td Vaccines (2 - Td or Tdap) 11/04/2031 11/03/2021 [facility]-Hepatitis A Vaccines Aged Out 08/08/2018, 0808/2017 No longer eligible based on patient's age to complete this topic HPV Vaccines Aged Out No longer eligi ble based on patient's age to complete this topic [facility]-HIB Vaccines Aged Out No longer e ligible based on patient's age to complete this topic [facility]-IPV Vaccines Aged Out No longer e ligible based on patient's age to complete this topic [facility]-Pneumococcal Vaccine: Pediatrics (0 to 5 Years) and At-Risk Patients (6 to 49 Years) Aged Out No longer eligible based on patient's age to complete this topic [facility]-Rotavirus Vaccines Aged Out No lo nger eligible based on patient's age to complete this topic Medical Devices Implanted Type Area Compressor Mechanic Bus Device Identifier Shelf Expiration Date Model / Serial / Lot Plate Dist Lat Tib 20h Rt - S. - [id number] Implanted:Qty : 1 on 11/03/2021 by Calixto Bone MD at [facility] Plate Right: [employer]-[id number] 11/03/2022 [id number] / . / Screw 3.5mm Periart 2.7mm Head Selftap 42mm - S. - [id number] Implanted:Qty : 2 on 11/03/2021 by Calixto Bone MD at [facility] Screw Right: [employer]-[id number] 11/03/2022 [id number] / . / Screw 3.5mm Periart 2.7mm Head Selftap 40mm - S. - [id number] Implanted:Qty : 1 on 11/03/2021 by Calixto Bone MD at [facility] Screw Right: [employer]-[id number] 11/03/2022 [id number] / . / Screw 3.5mm Periart 2.7mm Head Selftap 30mm - S. - [id number] Implanted:Qty : 1 on 11/03/2021 by Calixto Bone MD at [facility] Screw Right: [employer]-[id number] 11/03/2022 [id number] / . / Screw 3.5mm Cortex Selftap 28mm - S. - [id number] Implanted:Qty : 1 on 11/03/2021 by Calixto Bone MD at [facility] Right: [id number] 11/04/2022 204.828 / . / Screw 3.5mm Cortex Pelvic Selftap 130mm - S. - [id number] Implanted:Qty : 1 on 11/03/2021 by Calixto Bone MD at [facility] Right: [id number] 11/04/2022 204.730 / . / Screw 3.5mm Cortex Selftap 28mm - S. - [id number] Implanted:Qty : 2 on 11/03/2021 by Calixto Bone MD at [facility] Right: [id number] 11/04/2022 204.828 / . / Screw 3.5mm Cortex Selftap 26mm - S. - [id number] Implanted:Qty : 1 on 11/03/2021 by Calixto Bone MD at [facility] Right: [id number] 11/04/2022 204.826 / . / Wire Delta Trocar Point Small 2mm X 150mm - S. - [id number] Implanted:Qty : 1 on 11/03/2021 by Calixto Bone MD at [facility] Right: [employer]-[id number] 11/04/2022 292.20 / . / Wire Delta Trocar Point 1.25mm X 150mm - S. - [id number] Implanted:Qty : 1 on 11/03/2021 by Calixto Bone MD at [facility] Right: [employer]-[id number] 11/04/2022 292.12 / . / Wire Delta Trocar [place] 1.6mm X 150mm - S. - [id number] Implanted:Qty : 1 on 11/03/2021 by Calixto Bone MD at [facility] Right: [employer]-[id number] 11/04/2022 292.16 / . / Screw 2.7mm Cortex Selftap 30mm - S. - [id number] Implanted:Qty : 1 on 11/03/2021 by Calixto Bone MD at [facility] Right: [employer]-[id number] 11/04/2022 202.830 / . / Screw 2.7mm Cortex Selftap 34mm - S. - [id number] Implanted:Qty : 1 on 11/03/2021 by Calixto Bone MD at [facility] Right: Devaughn [place] [facility]-[id number] 11/04/2022 202.834 / . 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 Yes Care Teams Utility Assembler Relationship Specialty Start Date End Date Ifeoma Pate PA [address] [place] [address] PCP - General 11/15/20
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
[2025-05-26 09:00] VITALS: BP 172/106; PULSE 77; O2SAT 98
--- NOTE | 2025-05-26 09:20 | PC.NURSE ---
i was at bedside during triage and care of pt performed by nurse janice ortega
[2025-05-26 09:30] VITALS: PULSE 80; O2SAT 98
[2025-05-26 09:41] VITALS: BP 153/98; PULSE 79; O2SAT 97
[2025-05-26 10:00] VITALS: BP 175/114; PULSE 68; O2SAT 100
[2025-05-26 10:33] VITALS: BP 175/114; PULSE 68; RESP 16; TEMP 36.7; O2SAT 100
== END 2025-05-26 10:34 | disposition home or self-care (01) ==
PROVIDERS: Emergency Provider Student in an Organized Health Care Education/Training Program
DX: M79.641 Pain in right hand (principal); W22.8XXA Striking against or struck by other objects, initial encounter
CPT/HCPCS: 73100; 73120; 99284